=== PATIENT | male | born 1975 | race Caucasian/White ===

== ENCOUNTER 2023-02-06 11:17 | Outpatient (AMB) | payer OTHER, SELFPAY ==
[2023-02-06 11:21] VITALS: BP 124/80; PULSE 69; RESP 12; TEMP 36.6; O2SAT 99; BMI 28.0
--- NOTE | 2023-02-06 11:21 | MHC.PC.OV ---
Vital Signs 02/06/23 11:21 Height 6 ft Weight 206 lb 3 oz BMI 28.0 BP 124/80 Blood Pressure Location Lt brachial Position Sitting Respiration 12 Pulse 69 Pulse Source Pulse Oximeter Temp 97.8 F Temp Source Temporal Artery Scan Pulse Oximetry (%) 99 Oxygen Delivery Method Room Air Intake Visit Reasons: New patient-Heart Palpitations Intake Note: Patient states that he would like a referral to a generator operator. Patient states that he has a SVT when he was younger. Cell Coverer Required: No Accompanied by: Self / Same As Patient Allergies No Known Allergies Allergy (Verified 02/06/23 11:36) Medication List - Last Reconciled 02/06/23 by Ravindra Parker CNP No Known Home Meds Tobacco use date assessed: 02/06/23 Dental Screening Dental Screen Date: 02/06/23 Did you have a dental visit in the last 12 months?: No Did you have a dental problem in the last 6 months where you did not have access to dental care?: No Was dental information given to patient?: Patient has dentist HPI HPI Comments History of Present Illness Details 47-year-old male presents to [facility] care. He notes that he was last evaluated by his former PCP and had routine blood work done 5 years ago. He reports history of SVT when he was younger with ablation in 1993. He states that he started experiencing intermittent racing heart beats and palpitations for the past 8 months with occasional chest pain. No dizziness or shortness of breath. His last symptoms was a week ago. He requests a referral to generator operator. He is not on prescription medications. He notes that he is sexually active, in a monogamous relationship, and practices safe sex. [facility] Medical History (Updated 02/06/23 @ 11:52 by Ravindra Parker CNP) Bronchitis Palpitations Right knee injury Supraventricular tachycardia Surgical History (Updated 02/06/23 @ 11:38 by Zuly Harrington MA) H/O right knee surgery History of cardiac radiofrequency ablation Family History (Updated 02/06/23 @ 11:40 by Zuly Harrington MA) Mother High blood pressure Cardiovascular disease Father Cardiovascular disease Social History Housing: House Patient Tobacco Use Status: Never used Tobacco e-Cigarette/Vaping Use: Never Used service: No Current occupational status: employed 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 1. Little interest or pleasure in doing things: not at all 2. Feeling down, depressed, or hopeless: not at all 3. Trouble falling or staying asleep, or sleeping too much: not at all 4. Feeling tired or having little energy: not at all 5. Poor appetite or overeating: not at all 6. Feeling bad about yourself - or that you are a failure or have let yourself or your family down: not at all 7. Trouble concentrating on things, such as reading the newspaper or watching television: not at all 8. Moving or speaking so slowly that other people could have noticed. Or the opposite - being so fidgety or restless that you have been moving around a lot more than usual: not at all 9. Thoughts that you would be better off or of hurting yourself in some way: not at all Total score: 0 Depression Screening Interpretation: Negative Source: Developed by Drs. Jozef Jewell, Neida Rosen, Darrian Pérez and colleagues, with an educational kay from [employer]. Thrive Questionnaire Date Thrive assessed: 02/06/23 I am a: Patient Within the past 12 months, did the food you bought not last and you didn't have the money to get more?: Never true Within the past 12 months, did you worry whether your food would run out before you got money to buy more?: Never true Do you have trouble paying for medicines?: No Do you have trouble getting transportation to medical appointments?: No Do you have trouble paying your heating and electricity bill?: No Do you have trouble taking care of your child, family member or friend?: No Do you have trouble with day-to-day activities such as bathing, preparing meals, shopping, managing finances, etc.?: No Are you currently unemployed and looking for a job?: No Are you interested in more education?: No Please select the resources that you would like help with: None Currently or been in a relationship where the following occur: no concerns reported AUDIT C Alcohol Use Questionnaire (AUDIT-C) 1. How often do you have a drink containing alcohol?: 2-3 times a week 2. How many drinks containing alcohol do you have on a typical day when you are drinking?: 1 or 2 3. How often do you have six or more drinks on one occasion?: Never Total Score: 3 JENNIFER-7 AMB Questionnaire JENNIFER-7 Date JENNIFER - 7 assessed: 02/06/23 Feeling nervous, anxious, or on edge: 0 = Not at all Not being able to stop or control worryin = Not at all Worrying too much about different things: 0 = Not at all Trouble relaxin = Not at all Being so restless that it is hard to sit still: 0 = Not at all Becoming easily annoyed or irritable: 0 = Not at all Feeling afraid as if something awful might happen: 0 = Not at all Total JENNIFER-7 score (0-4 normal; 5-9 mild; 10-14 moderate; 15-21 severe): 0 Source: Developed by Drs. Jozef Jewell, Neida Rosen, Darrian Pérez and colleagues, with an educational kay from [employer]. Review of Systems Const Details: Denies chills, Denies fatigue, Denies fever(s), Denies headache(s) and Denies weakness HEENT Denies change in vision, Denies dizziness, Denies headache(s), Denies hearing loss, Denies nasal congestion, Denies sinus pain, Denies sinus pressure and Denies sore throat Card Denies chest pain, Denies lightheadedness, Denies dyspnea and Denies other (palpitations) Resp Denies cough, Denies dyspnea and Denies wheezing GI Denies abdominal pain, Denies melena, Denies hematochezia, Denies change in bowel habits, Denies dyspepsia and Denies nausea Denies hematuria and Denies dysuria Musc Denies abnormal gait, Denies myalgias, Denies arthralgias, Denies numbness and Denies tingling Skin/Breast Denies rash, Denies unusual bruising and Denies wounds Neuro Denies abnormal gait, Denies dizziness, Denies headache(s), Denies memory loss, Denies numbness, Denies Sensory deficit (Neuro), Denies tingling and Denies weakness Psych Denies anxiety, Denies depression and Denies memory loss Endo Denies cold intolerance, Denies fatigue, Denies heat intolerance, Denies polydipsia and Denies polyuria Joo/Lymph Denies easy bleeding and Denies easy bruising Aller/Immun Denies wheezing Physical exam (Primary Care) Vital Signs: Last Vital Signs Temp 97.8 F 02/06/23 11:21 Pulse 69 02/06/23 11:21 Resp 12 02/06/23 11:21 BP 124/80 02/06/23 11:21 Pulse Ox 99 02/06/23 11:21 Oxygen Delivery Method Room Air 02/06/23 11:21 BMI result Body Mass Index 28.0 Depression Screening Interpretation: Negative Currently or been in a relationship where the following occur: no concerns reported Const Other: General: no acute distress, well developed, alert and awake Nutritional Appearance: well nourished Orientation/consciousness: patient oriented x3 HENMT Head: Yes normocephalic and Yes atraumatic Ears: hearing grossly normal bilaterally and TM's normal bilaterally General nose exam: Normal external nose present and Normal nares present Mouth: Normal oral and palatal mucosa present and moist mucous membranes Teeth and gingiva: dentition normal Throat: Yes oropharynx normal Eyes Pupils: Equal, round and reactive pupils present and Pupil accommodation reflex normal EOM: EOMs intact bilaterally Neck Neck: Yes normal visual inspection, Yes no lymphadenopathy and Yes trachea midline Thyroid: Thyroid normal Carotids: no bruits Lymphatic: no lymphadenopathy noted Chest Chest palpation & inspection: normal inspection of the chest Resp Effort & Inspection: normal respiratory effort Auscultation: clear to auscultation bilaterally Cardio Rate: regular rate Rhythm: regular rhythm Heart sounds: S1 normal heart sound present, S2 normal heart sound present, no gallops, no murmurs and no rubs Bruits: no abdominal aortic bruits and no carotid bruits GI Palpation (GI): No Abdominal aortic bruit present, Soft to palpation, nontender, No hepatosplenomegaly present and No Rebound tenderness present Auscultation: normal bowel sounds General: Yes no CVA tenderness Back/Spine/Pelvis Back: no CVA tenderness Cervical Spine: cervical ROM normal and No Cervical spine tenderness Thoracic/Lumbar Spine: thoraco-lumbar ROM normal, No pain with thoraco-lumbar ROM, No thoracic spinal tenderness and No lumbar spinal tenderness Skin General: warm and dry. Normal skin color. Normal skin turgor Lesions: no lesions Rashes: no rashes Trauma: no lacerations or abrasions Wounds: no wounds Nails: normal Neuro General: patient oriented x3, gait normal and CN's II-XI intact bilaterally Cranial nerves: Yes Equal, round and reactive pupils present Cognition (Neuro): normal cognition Gait exam (Neuro): Normal gait present Motor exam (neuro): 5/5 motor strength present throughout Sensory Exam: No Sensory deficit (Neuro) Deep tendon reflexes (DTR's): Right patellar reflex intensity grade: 2+ and Left patellar reflex intensity grade: 2+ Extrem General: Yes normal to inspection, No edema and No calf tenderness Psych Appearance: grossly normal Affect: normal affect Attitude: cooperative Thought process: Normal thought process present Assessment and Plan Assessment & Plan (1) Normal physical examination, routine: Code(s): Z00.00 - Encounter for general adult medical examination without abnormal findings Plan: No significant physical restrictions or limitations noted Encouraged to get fasting blood work done before next visit Follow-up in 1 month for labs review or return sooner with symptoms or concerns Verbalized understanding and agreed with the plan. (2) Supraventricular tachycardia: Code(s): I47.1 - Supraventricular tachycardia Plan: Reports history of SVT and palpitations. He had an ablation in 1993. His last symptoms of palpitation was a week ago. Referred to Cardiology Return with symptoms or concerns Verbalized understanding and agreed with treatment plan. (3) Laboratory tests ordered as part of a complete physical exam (CPE): Code(s): Z00.00 - Encounter for general adult medical examination without abnormal findings Plan: Fasting labs ordered as part of a complete physical exam. Advised to fast for at least 10 hours before getting labs drawn. May drink water Verbalized understanding and agreed with treatment plan. Orders: Orders Comprehensive Callender. Panel Fast Today Z00.00 - Encounter for general adult medical examination without abnormal findings Lipid Panel Today Z00.00 - Encounter for general adult medical examination without abnormal findings PSA, Ultra Sensitive Today Z00.00 - Encounter for general adult medical examination without abnormal findings TSH reflex Free T4 Today Z00.00 - Encounter for general adult medical examination without abnormal findings Complete Blood Count Auto Diff Today Z00.00 - Encounter for general adult medical examination without abnormal findings UA CC w/rflx Micro + Cult Today Z00.00 - Encounter for general adult medical examination without abnormal findings Referrals Cardiology Referral I47.1 - Supraventricular tachycardia Coding Level of Care Code New Pt Prev Care 40-64y([id number]) Diagnoses Normal physical examination, routine Z00.00 Supraventricular tachycardia I47.1 Laboratory tests ordered as part of a complete physical exam (CPE) Z00.00
== END 2023-02-06 11:54 | disposition home or self-care (01) ==
PROVIDERS: PCP Nurse Practitioner Family; Visit Provider Nurse Practitioner Family
DX: Z00.00 Encounter for general adult medical examination without abnormal findings (principal); I47.1 Supraventricular tachycardia
CPT/HCPCS: 99386

== ENCOUNTER 2023-02-13 08:08 | Outpatient (REF) | payer OTHER, SELFPAY ==
[2023-02-13 11:36] LABS: MANUAL DIFF FLAG NO
[2023-02-13 12:00] LABS: Basophils Percent Auto 0.8 % (0-2); Eosinophils Absolute Auto 0.2 X10*3/uL (0.0-0.4); Eosinophils Percent Auto 4.3 % (0-4); Hematocrit 44.7 % (42.0-52.0); Hemoglobin 15.2 g/dl (14.0-18.0); Imm Gran Abs Auto 0.03 X10*3/uL (0.00-0.03); Imm Gran Pct Auto 0.6 % (0.0-0.4); Lymphocytes Absolute Auto 1.9 X10*3/uL (1.2-4.9); Lymphocytes Percent Auto 39.1 % (20-40); Mean Corpuscular Hemoglobin 29.7 pg (27.0-33.0); Mean Corpuscular Volume 87.3 fL (80.0-98.0); Mean Platelet Volume 10.6 fL (9.4-12.4); Monocytes Absolute Auto 0.3 X10*3/uL (0.1-1.2); Monocytes Percent Auto 6.3 % (2-11); Neutrophils Absolute Auto 2.4 x10*3/uL (2.0-8.3); Neutrophils Percent Auto 48.9 % (45-73); Platelet Count 264 X10*3/uL (160-400); Red Blood Count 5.12 X10*6/uL (4.60-5.80); White Blood Count 4.9 X10*3/uL (4.8-10.8)
[2023-02-13 12:25] LABS: Alanine Aminotransferase 29 U/L (0-40); Albumin Level 4.3 g/dL (3.5-5.0); Alkaline Phosphatase 49 U/L (39-117); Anion Gap 15 (12-20); Aspartate Amino Transferase 24 U/L (5-37); Bilirubin Total 0.6 mg/dL (0.0-1.0); Blood Urea Nitrogen 16 mg/dL (9-16); Calcium 8.9 mg/dL (8.4-10.2); Carbon Dioxide 22 mmol/L (22-29); Chloride 107 mmol/L (96-108); Cholesterol 296 mg/dL; Estimated Glomerular Filt Rate > 60; Glucose Fasting 91 mg/dL (60-99); HDL Cholesterol 51 mg/dL; LDL Cholesterol Calculated 222 mg/dl; Potassium 4.4 mmol/L (3.3-5.1); Sodium 140 mmol/L (135-145); Triglycerides 118 mg/dL
[2023-02-13 12:59] LABS: TSH reflex Free T4 1.12 uIU/mL (0.32-4.0)
[2023-02-13 14:45] LABS: Appearance Urine Cloudy; Color Urine Yellow; Glucose Urine UA Negative (Negative); Leukocyte Esterase Urine Negative (Negative); Nitrite Urine Negative (Negative); Specific Gravity - Urine >= 1.030 (1.005-1.025); Urine Blood Negative (Negative); Urine Ketones Negative (Negative); Urine Protein Trace mg/dL (Neg-Trace)
[2023-02-20 20:49] LABS: PSA, Ultra Sensitive 0.99 ng/mL
== END 2023-02-13 08:09 | disposition home or self-care (01) ==
LOC: HO.WFDLDS 08:08
PROVIDERS: Visit Provider Nurse Practitioner Family
DX: Z00.00 Encounter for general adult medical examination without abnormal findings (principal); Z12.5 Encounter for screening for malignant neoplasm of prostate
CPT/HCPCS: 36415; 80053; 80061; 81003; 84153; 84443; 85025

== ENCOUNTER 2023-03-13 08:58 | Outpatient (AMB) | payer OTHER, SELFPAY ==
--- NOTE | 2023-03-13 09:01 | A.OFFPC_ITS ---
Vital Signs 03/13/23 09:02 Height 6 ft Weight 213 lb 6 oz BMI 28.9 BP 112/74 Blood Pressure Location Rt brachial Position Sitting Respiration 13 Pulse 79 Pulse Source Pulse Oximeter Temp 97.0 F Temp Source Temporal Artery Scan Pulse Oximetry (%) 97 Oxygen Delivery Method Room Air Intake Visit Reasons: 1 mos labs review Intake Note: Patient is here today to review labs. Patient reports he has no concerns at this time. Carpenter Ship Required: No Accompanied by: Self / Same As Patient Allergies No Known Allergies Allergy (Verified 03/13/23 09:18) Medication List - Last Reconciled 03/13/23 by Ravindra Parker CNP No Known Home Meds Tobacco use date assessed: 02/06/23 Dental Screening Dental Screen Date: 03/13/23 Did you have a dental visit in the last 12 months?: No Did you have a dental problem in the last 6 months where you did not have access to dental care?: No Was dental information given to patient?: Patient has dentist HPI HPI Comments History of Present Illness Details 48-year-old male presents for review of recent blood work. He established care on 02/06/2023 and routine labs were ordered. He was referred to Cardiology for child history of SVT and complain of palpitations. He reports continued intermittent palpitations. His last episode was last night, lasted 30 minutes. No associated chest pain or shortness of breath. He notes he has an appointment scheduled with Cardiology for 03/27/2023. No acute symptoms today. 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 Jozef Jewell, Neida Rosen, Darrian Pérez and colleagues, with an educational kay from [employer]. Review of Systems Const Details: Const Denies chills, Denies fatigue, Denies fever(s), Denies headache(s) and Denies weakness ENT Denies dizziness and Denies headache(s) Card Denies chest pain, Denies lightheadedness, Denies dyspnea and Denies other (Palpitations) Resp Denies cough, Denies dyspnea, Denies wheezing and Denies other ( shortness of breath) GI Denies abdominal pain, Denies melena, Denies hematochezia, Denies change in bowel habits, Denies dyspepsia and Denies nausea Denies hematuria and Denies dysuria Musc Denies abnormal gait, Denies myalgias, Denies arthralgias, Denies numbness and Denies tingling Skin/Breast Denies rash, Denies unusual bruising and Denies wounds Neuro Denies abnormal gait, Denies dizziness, Denies headache(s), Denies memory loss, Denies numbness, Denies Sensory deficit (Neuro), Denies tingling and Denies weakness Psych Denies anxiety, Denies depression, Denies memory loss Endo Denies cold intolerance, Denies fatigue, Denies heat intolerance, Denies polydipsia and Denies polyuria Aller/Immun Denies wheezing Physical exam (Primary Care) Vital Signs: Last Vital Signs Temp 97.0 F 03/13/23 09:02 Pulse 79 03/13/23 09:02 Resp 13 03/13/23 09:02 BP 112/74 03/13/23 09:02 Pulse Ox 97 03/13/23 09:02 Oxygen Delivery Method Room Air 03/13/23 09:02 BMI result Body Mass Index 28.9 Tobacco/Smoking Status: Tobacco use Status Tobacco use date assessed 02/06/23 03/13/23 09:07 Patient Tobacco Use Status Never used Tobacco 03/13/23 09:07 e-Cigarette/Vaping Use Never Used 03/13/23 09:07 Thrive Assessment: Date of Thrive Assessment Date Thrive assessed 02/06/23 03/13/23 09:07 Const Other: General: no acute distress and well developed Nutritional Appearance: well nourished Orientation/consciousness: patient oriented x3 HENMT Head: Yes normocephalic and Yes atraumatic Eyes General: appearance normal, both eyes and all related structures Pupils: Equal, round and reactive pupils present EOM: EOMs intact bilaterally Resp Effort & Inspection: normal respiratory effort Auscultation: clear to auscultation bilaterally Cardio Rate: regular rate Rhythm: regular rhythm Heart sounds: S1 normal heart sound present, S2 normal heart sound present, no gallops, no murmurs and no rubs GI Palpation (GI): No Abdominal aortic bruit present, Soft to palpation, nontender, No hepatosplenomegaly present and No Rebound tenderness present Auscultation: normal bowel sounds General: Yes no CVA tenderness Back/Spine/Pelvis Back: no CVA tenderness Cervical Spine: cervical ROM normal and No Cervical spine tenderness Thoracic/Lumbar Spine: thoraco-lumbar ROM normal, No pain with thoraco-lumbar ROM, No thoracic spinal tenderness and No lumbar spinal tenderness Extrem General: Yes normal to inspection, No edema and No calf tenderness Skin General: warm and dry. Normal skin color. Normal skin turgor Lesions: no lesions Rashes: no rashes Trauma: no lacerations or abrasions Wounds: no wounds Nails: normal Neuro General: patient oriented x3, gait normal and no focal neuro deficit Cranial nerves: Yes Equal, round and reactive pupils present Cognition (Neuro): normal cognition Gait exam (Neuro): Normal gait present Sensory Exam: No Sensory deficit (Neuro) Psych Appearance: grossly normal Affect: normal affect Attitude: cooperative Thought process: Normal thought process present Assessment and Plan Assessment & Plan (1) Hypercholesterolemia: Code(s): E78.00 - Pure hypercholesterolemia, unspecified Plan: Recent cholesterol and LDL levels were elevated; 296/222 respectively His 10 year risk of ASCVD is 4% Advised to limit foods high in saturated fat and avoid foods high trans fat Routine exercise encouraged Advised to schedule a physical for a year from his last physical Return sooner with symptoms or concerns Verbalized understanding and agreed with treatment plan. (2) Palpitations: Code(s): R00.2 - Palpitations Plan: Reports history of SVT and palpitations.? He had an ablation in 1993. Reports continued intermittent palpations. His last episode was last night, lasted 30 minutes. No associated chest pain or shortness of breath. EKG revealed normal sinus rhythm, normal axis, normal interval, no hypertrophy, no Q-wave, no ST-T changes Follow-up with cardiology as planned Return with worsening or new symptoms Verbalized understanding and agreed with treatment plan. Coding Level of Care Code Est Pt Level 3 (82339) Diagnoses Hypercholesterolemia E78.00 Palpitations R00.2
[2023-03-13 09:02] VITALS: BP 112/74; PULSE 79; RESP 13; TEMP 36.1; O2SAT 97; BMI 28.9
== END 2023-03-13 09:56 | disposition home or self-care (01) ==
PROVIDERS: PCP Nurse Practitioner Family; Visit Provider Nurse Practitioner Family
DX: E78.00 Pure hypercholesterolemia, unspecified (principal); R00.2 Palpitations
CPT/HCPCS: 99213

== ENCOUNTER 2023-03-27 14:06 | Outpatient (AMB) | payer OTHER, SELFPAY ==
[2023-03-27 14:10] VITALS: BP 112/78; PULSE 86; BMI 27.9
--- NOTE | 2023-03-27 14:10 | A.OFFVIS_ITS ---
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 He states that he underwent SVT ablation 1993. At that time, he was having palpitations for few years. Eventually had the ablation and then felt fine. No cardiology follow-up for many years since then. For the last few months, he has again noticing sensations of heart racing. Last for a few minutes at a time. Nothing persistent. Otherwise, limited physical activity with no limitations whatsoever. No history of any coronary artery disease, myocardial infarction or cardiomyopathy. [facility] Medical History (Updated 03/27/23 @ 14:20 by Rafa Miller MD) Right knee injury Palpitations Bronchitis Supraventricular tachycardia Surgical History History of cardiac radiofrequency ablation H/O right knee surgery Family History Mother High blood pressure Cardiovascular disease Father Cardiovascular disease Social History (Updated 03/27/23 @ 14:15 by Lucia Goldberg) Housing: House Alcohol intake: current Alcohol intake frequency: holidays/special occasions only Patient Tobacco Use Status: Never used Tobacco e-Cigarette/Vaping Use: Never Used service: No Current occupational status: employed 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 [employer] Cognitive needs: No Hearing needs: No Vision needs: No Review of Systems Const Denies weakness ENT Denies dizziness Card Denies chest pain, Denies chest pain with activity, Denies syncope, Denies rapid heart rate, Denies pedal edema, Denies edema, Denies leg edema, Denies lightheadedness, Denies palpitations, Denies dyspnea, Denies dyspnea on exertion and Denies orthopnea Resp Denies cough, Denies dyspnea and Denies dyspnea on exertion GI Denies hematochezia and Denies change in stool character Musc Denies abnormal gait, Denies muscle cramps, Denies muscle weakness, Denies numbness, Denies radiating pain into limb and Denies tingling Neuro Denies abnormal gait, Denies dizziness, Denies syncope, Denies numbness, Denies tingling and Denies weakness Endo Denies palpitations Physical Exam Vital Signs: Last Vital Signs Pulse 86 03/27/23 14:10 BP 112/78 03/27/23 14:10 BMI result Body Mass Index 27.9 Const General: comfortable and no acute distress Orientation/consciousness: patient oriented x3 HEENT Other: Unremarkable Head: Yes normal to inspection Neck Neck: Yes normal visual inspection Chest Chest palpation & inspection: normal inspection of the chest Resp Auscultation: clear to auscultation bilaterally Cardio Palpation: normal PMI Heart sounds: S1 normal heart sound present, S2 normal heart sound present, no gallops, no murmurs and no rubs GI Palpation (GI): Soft to palpation Back/Spine/Pelvis Other: unremarkable Skin General skin exam: no rashes or lesions noted Neuro General: patient oriented x3 Extrem General: Yes normal to inspection Psych Mental Status: mental status grossly normal Assessment & Plan Assessment & Plan (1) Palpitations: Code(s): R00.2 - Palpitations (2) Supraventricular tachycardia: Code(s): I47.1 - Supraventricular tachycardia Plan Recent EKG shows sinus rhythm at 66/Min; no significant ST-T changes and otherwise unremarkable. Normal ME and corrected QT. History of remote SVT ablation and new onset of palpitations. Will need further workup with echocardiogram. As the palpitations are somewhat intermittent, we can rather do a 30 day monitor. Based on findings, we can plan further care. Orders: Orders CA echo transthoracic complete Today I47.1 - Supraventricular tachycardia ECG 30 day event monitor Today I47.1 - Supraventricular tachycardia Coding Level of Care Code New Pt Level 3 (80069) Diagnoses Palpitations R00.2 Supraventricular tachycardia I47.1
== END 2023-03-27 14:27 | disposition home or self-care (01) ==
PROVIDERS: PCP Nurse Practitioner Family; Referring Provider Nurse Practitioner Family; Visit Provider Internal Medicine
DX: R00.2 Palpitations (principal); I47.1 Supraventricular tachycardia
CPT/HCPCS: 99203

== ENCOUNTER → 2023-03-27 14:06 | Outpatient (BNVA) | payer OTHER, SELFPAY | PROVIDERS: PCP Nurse Practitioner Family; Referring Provider Nurse Practitioner Family; Visit Provider Internal Medicine | DX: R00.2 Palpitations (principal); I47.1 Supraventricular tachycardia; Z98.890 Other specified postprocedural states | CPT/HCPCS: 99202 ==

== ENCOUNTER → 2023-04-30 12:59 | Outpatient (REF) | payer OTHER, SELFPAY ==
--- NOTE | 2023-04-30 13:02 | HM_ITS ---
* Procedure length 30 days. Wear time 22 days. * Underlying rhythm is sinus with an average rate of 77/Min. Range 49 to 170/Min. * Rare ventricular ectopy. * Patient activated the symptom button 50 times. Reported 6 symptoms. Various symptoms including chest pain, dizziness, fast heartbeat, generally associated with sinus rhythm with 1 episode of sinus tachycardia. MTDD
--- NOTE | 2023-04-30 13:02 | CA_ITS ---
Transthoracic Echocardiogram Patient (Last, First, Middle): Gui Kent, Gender: Male Date of : 1975 Age: 48 Procedure Date: 04/30/2023 Procedure Type: Transthoracic Echocardiogram Location: OP Height: 182.88 cm Weight: 92.99 kg BSA: 2.15 m2 Heart Rate: bpm BP: 120 / 82 mmHg Slide Fastener Chain Assembler: TO Referring MD: Rafa Miller MD Symptoms: I47.1 - Supraventricular tachycardia Study Quality: Fair ECG Rhythm: Sinus Conclusions: - The left ventricular systolic function is normal. The calculated ejection fraction is 56% by biplane method. - There is mild calcification of the aortic valve. - No obvious valvular pathology seen on this study. Findings Left Ventricle Normal left ventricular cavity size. There is normal left ventricular wall thickness. The left ventricular systolic function is normal. The calculated ejection fraction is 56% by biplane method. There is no evidence of regional wall motion abnormalities. Diastolic function is normal for age. Right Ventricle Mildly increased right ventricular cavity size. There is normal right ventricular systolic function. Atria The left atrium is normal in size. The right atrium is mildly dilated. Aortic Valve There is a normal trileaflet aortic valve. There is mild calcification of the aortic valve. There is no aortic valve stenosis. There is no aortic valve regurgitation. Mitral Valve The mitral valve appears normal. There is no mitral valve regurgitation. There is no mitral valve stenosis. Pulmonic Valve The pulmonic valve is likely normal. Tricuspid Valve There is trace tricuspid valve regurgitation. There is no evidence of pulmonary hypertension. Great Vessels The asc aorta is normal in size. Venous The inferior vena cava is normal in size and collapses greater than 50% with inspiration. Pericardium/Pleural There is no evidence of pericardial effusion. Prior Study Comparison No prior study available for comparison. Recommendations, Care & Conclusions No obvious valvular pathology seen on this study. Measurements 2D Linear Measurements IVSd: 1.00 0.6-0.9/0.6-1.0 cm LVIDd: 4.90 3.9-5.3/4.2-5.9 cm LVIDd Index: 2.28 2.4-3.2/2.2-3.1 cm/m2 LVIDs: 2.60 2.0-3.6 cm LVPWd: 1.00 0.7-1.1 cm LA Diam: 3.70 2.7-3.8/3.0-4.0 cm LAIDs Index: 1.72 1.5-2.3 cm/m2 LV Mass: 219.29 67-162/88-224 g LV Mass Index: 102.00 43-95/49-115 g/m2 LVOT Diam: 2.40 3.0+(-)1.3 cm 2D Systolic Function EF 4C: 57.50 >55% EF 2C: 52.90 >55% EF BiP: 55.80 >55% Mitral Valve MV Pk E: 0.48 MV PK A: 0.48 MV Decel Time: 274.00 E/A: 1.00 E'Lateral: 8.70 E'Medial: 5.87 E/E' Med: 8.20 E/E' Lat: 5.50 PHT: 80.00 MVA PHT: 2.75 Decel [place]: 1.75 Aortic Valve AoV Pk Zachariah: 1.08 AoV Mn Zachariah: 0.74 AoV VTI: 0.22 AoV Pk Grad: 5.00 Aov Mn Grad: 3.00 JOSH Cont.VTI: 2.93 LVOT LVOT Pk Zachariah: 0.84 LVOT Mn Zachariah: 0.53 LVOT VTI: 0.14 LVOT Pk Grad: 3.00 LVOT Mn Grad: 1.00 LVOT Diam: 2.40 LVOT Area: 4.52 Diastolic Function MV Pk E: 0.48 MV Pk A: 0.48 E/A: 1.00 E'Medial: 5.87 E/E' Med: 8.20 E' Laterial: 8.70 E/E' Lat: 5.50 Right Ventricle TAPSE (mm): 23.80 TVS' Zachariah: 11.20 Tricuspid Valve TR Pk Zachariah: 2.01 TR Pk Grad: 16.00 RA Press: 3.00 RVSP: 19.00 Great Vessels Aorta Sinus of Valsalva: 4.20 2.0-3.5 cm Ao Asc: 3.30 2.1-3.4 cm Updated in Other Vendor System with Status of Final Rafa Miller MD electronically signed on 05/01/2023 2:48:19 PM with status of Final
== END ==
LOC: HO.CARD 12:59
PROVIDERS: PCP Nurse Practitioner Family; Visit Provider Internal Medicine
DX: I47.10 Supraventricular tachycardia, unspecified (principal)
CPT/HCPCS: 93270; 93306

== ENCOUNTER → 2023-04-30 13:02 | Outpatient (BNV) | payer OTHER, SELFPAY | PROVIDERS: PCP Nurse Practitioner Family; Visit Provider Internal Medicine | DX: R00.0 Tachycardia, unspecified (principal) | CPT/HCPCS: 93272; 93306 ==

== ENCOUNTER 2023-06-09 14:35 | Outpatient (AMB) | payer OTHER, SELFPAY ==
[2023-06-09 14:41] VITALS: BP 106/84; PULSE 88; BMI 28.7
--- NOTE | 2023-06-09 14:41 | A.OFFVIS_ITS ---
Intake Vital Signs 06/09/23 14:41 Height 6 ft Weight 211 lb 10.3 oz BMI 28.7 BP 106/84 Blood Pressure Location Lt brachial Position Sitting Pulse 88 Intake Visit Reasons: Follow up Echo & Monitor Intake Note: follow up Machine Assembler Required: No Accompanied by: Self / Same As Patient Allergies No Known Allergies Allergy (Verified 06/09/23 14:43) Medication List - Last Reconciled 06/09/23 by Rafa Miller MD No Known Home Meds HPI HPI Comments History of Present Illness Details Gui returns for follow-up. Recently seen in consultation regarding palpitations. He states that he underwent SVT ablation in 1993. At that time, he was having palpitations for few years. Eventually had the ablation and then felt fine. No cardiology follow-up for many years since then. For the last few months, he has again noticing sensations of heart racing. Last for a few minutes at a time. On 1 occasion, when he was driving he got very dizzy and that was very bothersome. Otherwise, unlimited physical activity with no limitations whatsoever. No history of any coronary artery disease, myocardial infarction or cardiomyopathy. He has completed an echocardiogram and 30 day monitor. 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 Cognitive needs: No Hearing needs: No Vision needs: No Review of Systems Const Denies weakness ENT Denies dizziness Card Denies chest pain, Denies chest pain with activity, Denies syncope, Denies rapid heart rate, Denies pedal edema, Denies edema, Denies leg edema, Denies lightheadedness, Denies palpitations, Denies dyspnea, Denies dyspnea on exertion and Denies orthopnea Resp Denies cough, Denies dyspnea and Denies dyspnea on exertion GI Denies hematochezia and Denies change in stool character Musc Denies abnormal gait, Denies muscle cramps, Denies muscle weakness, Denies numbness, Denies radiating pain into limb and Denies tingling Neuro Denies abnormal gait, Denies dizziness, Denies syncope, Denies numbness, Denies tingling and Denies weakness Endo Denies palpitations Physical Exam Vital Signs: Last Vital Signs Pulse 88 06/09/23 14:41 BP 106/84 06/09/23 14:41 BMI result Body Mass Index 28.7 Const General: comfortable and no acute distress Orientation/consciousness: patient oriented x3 HEENT Other: Unremarkable Head: Yes normal to inspection Neck Neck: Yes normal visual inspection Chest Chest palpation & inspection: normal inspection of the chest Resp Auscultation: clear to auscultation bilaterally Cardio Palpation: normal PMI Heart sounds: S1 normal heart sound present, S2 normal heart sound present, no gallops, no murmurs and no rubs GI Palpation (GI): Soft to palpation Back/Spine/Pelvis Other: unremarkable Skin General skin exam: no rashes or lesions noted Neuro General: patient oriented x3 Extrem General: Yes normal to inspection Psych Mental Status: mental status grossly normal Assessment & Plan Assessment & Plan (1) Palpitations: Code(s): R00.2 - Palpitations (2) Supraventricular tachycardia: Code(s): I47.1 - Supraventricular tachycardia Plan History of remote SVT ablation and new onset of palpitations. EKG shows sinus rhythm at 66/Min; no significant ST-T changes and otherwise unremarkable. Normal AK and corrected QT. Echocardiogram with LVEF of 56%. No wall motion abnormalities. Normal diastolic function. Otherwise unremarkable. In the 30 day monitor, underlying rhythm is sinus. Rare ventricular ectopy. Overall, no evidence of any significant tachyarrhythmias. We discussed the findings in great detail. Overall, he seems to be quite bothered by the occurrence of palpitations and he feels that the 30 day monitor did not catch them as he had symptoms before and after the monitor, but not during. Hence we talked about monitoring his own self with any smart device like a smart watch versus implantable loop recorder. Patient very interested in getting the implantable loop recorder and hence we can arrange that in the near future. Based on findings, we can plan further care. Total time spent including review of data, counseling, documentation, coordination of care-32 minutes. Coding Level of Care Code Est Pt Level 4 (40360) Diagnoses Palpitations R00.2 Supraventricular tachycardia I47.1
== END 2023-06-09 15:07 | disposition home or self-care (01) ==
PROVIDERS: PCP Nurse Practitioner Family; Visit Provider Internal Medicine
DX: R00.2 Palpitations (principal); I47.1 Supraventricular tachycardia
CPT/HCPCS: 99214

== ENCOUNTER → 2023-06-09 14:35 | Outpatient (BNVA) | payer OTHER, SELFPAY | PROVIDERS: PCP Nurse Practitioner Family; Visit Provider Internal Medicine | DX: I47.10 Supraventricular tachycardia, unspecified (principal); R00.2 Palpitations | CPT/HCPCS: 99212 ==

== ENCOUNTER 2023-06-20 11:02 | Outpatient (REF) | payer OTHER, SELFPAY ==
[2023-06-20 11:07] VITALS: BMI 27.8
[2023-06-20 11:09] VITALS: BP 138/77; PULSE 76; RESP 16; TEMP 36.4; O2SAT 97
[2023-06-20 11:35] VITALS: BP 127/76; PULSE 77; RESP 16; O2SAT 94
--- NOTE | 2023-06-20 11:47 | P.BOP_ITS ---
Brief Operative Note Date of Service: 06/20/23 Pre-op diagnosis: Palpitations Post-op diagnosis: same Procedure: Placement of implantable loop recorder Implants: After obtaining informed consent patient was laid in the supine position on the table in minor surgery room. The precordial area was then prepped and draped in a sterile fashion. Patient was then given 2% lidocaine with epinephrine intradermally and subcutaneously in the precordial area. Small incision was then made. The car easily beat implantable loop recorder with seizures number [id number] was then implanted in the subcutaneous space using modified Seldinger technique. The wound was then closed with Steri-Strips and pressure dressing applied. Surgeon: Grabiel Camacho MD Anesthesia: local Was an Flow Machine Operator used for this Procedure?: No Estimated blood loss (mL): 2 Pathology: none sent Condition: stable Disposition: same day
== END 2023-06-20 11:03 | disposition home or self-care (01) ==
LOC: HO.MS 11:02
PROVIDERS: PCP Nurse Practitioner Family; Visit Provider Internal Medicine Cardiovascular Disease
PROC: (CPT 33285; principal; 2023-06-20 11:00)
DX: R00.2 Palpitations (principal)
CPT/HCPCS: 33285; C1764

== ENCOUNTER → 2023-06-20 11:02 | Outpatient (BNV) | payer OTHER, SELFPAY | PROVIDERS: PCP Nurse Practitioner Family; Visit Provider Internal Medicine Cardiovascular Disease | DX: I47.10 Supraventricular tachycardia, unspecified (principal) | CPT/HCPCS: 33285 ==

== ENCOUNTER 2023-06-25 14:25 | Outpatient (AMB) | payer OTHER, SELFPAY ==
--- NOTE | 2023-06-25 14:29 | A.OFFVIS_ITS ---
Intake Vital Signs 06/25/23 14:30 Height 6 ft Weight 213 lb 13.574 oz BMI 29.0 BP 120/70 Blood Pressure Location Lt brachial Position Sitting Pulse 96 Intake Visit Reasons: wound check Intake Note: Follow-up post ILR wound check Livestock Judging Coach Required: No Allergies No Known Allergies Allergy (Verified 06/09/23 14:43) Medication List - Last Reconciled 06/25/23 by Lala Ceja NP No Known Home Meds HPI HPI Comments History of Present Illness Details 48-year-old male here today for a wound check. He reports doin well. No fever, chills, swelling, and mild tenderness at the site. 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 Cognitive needs: No Hearing needs: No Vision needs: No Review of Systems Const Denies chills, Denies fatigue, Denies fever(s), Denies frequent falls, Denies weakness, Denies weight gain and Denies weight loss ENT Denies dizziness Card Denies chest pain, Denies leg edema, Denies lightheadedness, Denies palpitations, Denies dyspnea, Denies dyspnea on exertion, Denies orthopnea and Denies other (loss of consciousness) Resp Denies cough, Denies dyspnea and Denies dyspnea on exertion GI Denies hematochezia and Denies change in stool character Musc Denies abnormal gait, Denies muscle weakness, Denies numbness, Denies radiating pain into limb and Denies tingling Neuro Denies abnormal gait, Denies dizziness, Denies frequent falls, Denies numbness, Denies tingling and Denies weakness Endo Denies fatigue and Denies palpitations Physical Exam Vital Signs: BMI result Body Mass Index 29.0 Const General: healthy appearing and no acute distress Orientation/consciousness: patient oriented x3 HEENT Head: Yes normal to inspection Eyes General: appearance normal, both eyes and all related structures Neck Neck: Yes normal visual inspection Chest Chest palpation & inspection: normal inspection of the chest Resp Effort & Inspection: normal respiratory effort Auscultation: clear to auscultation bilaterally Cardio Jugular venous distension: no JVD Palpation: normal PMI Rate: regular rate Rhythm: regular rhythm Heart sounds: S1 normal heart sound present, S2 normal heart sound present, no click, no gallops, no murmurs and no rubs GI Inspection: Yes normal to inspection Palpation (GI): Soft to palpation Skin Other: ILR placed to the left of sternum General skin exam: no rashes or lesions noted Neuro General: patient oriented x3 Extrem General: Yes normal to inspection Psych Appearance: grossly normal Assessment & Plan Assessment & Plan (1) Implantable loop recorder present: Code(s): Z95.818 - Presence of other cardiac implants and grafts Plan Site looks to be healing well. Too soon to remove steri-strips. Will have him return friday when it is the appropriate time. Coding Level of Care Code Est Pt Level 3 (69095) Diagnoses Implantable loop recorder present Z95.818
[2023-06-25 14:30] VITALS: BP 120/70; PULSE 96; BMI 29.0
== END 2023-06-25 15:04 | disposition home or self-care (01) ==
PROVIDERS: PCP Nurse Practitioner Family; Visit Provider Nurse Practitioner
DX: Z95.818 Presence of other cardiac implants and grafts (principal)
CPT/HCPCS: 99213

== ENCOUNTER → 2023-06-25 14:25 | Outpatient (BNVA) | payer OTHER, SELFPAY | PROVIDERS: PCP Nurse Practitioner Family; Visit Provider Nurse Practitioner | DX: Z95.818 Presence of other cardiac implants and grafts (principal) | CPT/HCPCS: 99212 ==

== ENCOUNTER → 2023-06-30 14:03 | Outpatient (BNVA) | payer OTHER, SELFPAY | PROVIDERS: PCP Nurse Practitioner Family; Visit Provider Nurse Practitioner | DX: Z48.00 Encounter for change or removal of nonsurgical wound dressing (principal) | CPT/HCPCS: 99211 ==

== ENCOUNTER → 2023-07-20 23:59 | Outpatient (BNV) | payer OTHER, SELFPAY ==
--- NOTE | 2023-07-22 15:52 | A.OFFVIS_ITS ---
Intake Intake Visit Reasons: Remote ILR Check- [employer] Allergies No Known Allergies Allergy (Verified 06/09/23 14:43) PFSH Medical History Right knee injury Palpitations Bronchitis Supraventricular tachycardia Surgical History History of cardiac radiofrequency ablation H/O right knee surgery Family History Mother High blood pressure Cardiovascular disease Father Cardiovascular disease Social History Housing: House Alcohol intake: current Alcohol intake frequency: holidays/special occasions only Patient Tobacco Use Status: Never used Tobacco e-Cigarette/Vaping Use: Never Used service: No Current occupational status: employed 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 Associated with some heart pounding, faint type symptoms. [id number] Cardiac Interrogation, subcut cardiac rhythm monitor Procedure code (CPT) selection complete Assessment & Plan Assessment & Plan (1) Supraventricular tachycardia: Code(s): I47.1 - Supraventricular tachycardia Plan x Coding Level of Care Code Procedure Only Diagnoses Supraventricular tachycardia I47.1 CPT Codes Cardiac Device Check - Cardiac Device 16: [id number] Cardiac Interrogation, subcut cardiac rhythm monitor ([id number])
== END ==
PROVIDERS: PCP Nurse Practitioner Family; Visit Provider Internal Medicine
DX: I47.10 Supraventricular tachycardia, unspecified (principal); Z95.818 Presence of other cardiac implants and grafts
CPT/HCPCS: 93298

== ENCOUNTER 2023-08-06 09:47 | Outpatient (AMB) | payer OTHER, SELFPAY ==
[2023-08-06 09:53] VITALS: BP 138/80; PULSE 56; BMI 29.3
--- NOTE | 2023-08-06 09:53 | A.OFFVIS_ITS ---
Intake Vital Signs 08/06/23 09:53 Height 6 ft Weight 216 lb 0.848 oz BMI 29.3 BP 138/80 Blood Pressure Location Lt brachial Position Sitting Pulse 56 Intake Visit Reasons: FU/discuss palpitations Allergies No Known Allergies Allergy (Verified 06/09/23 14:43) Medication List - Last Reconciled 08/06/23 by Rafa Miller MD No Known Home Meds HPI HPI Comments History of Present Illness Details Gui returns for follow-up. Recently seen in consultation regarding palpitations. He states that he underwent SVT ablation in 1993. At that time, he was having palpitations for few years. Eventually had the ablation and then felt fine. No cardiology follow-up for many years since then. For the last few months, he has again been noticing sensations of heart racing. Last for a few minutes at a time. On 1 occasion, when he was driving he got very dizzy and that was very bothersome. Otherwise, unlimited physical activity with no limitations whatsoever. No history of any coronary artery disease, myocardial infarction or cardiomyopathy. Recently, underwent implantable loop recorder placement. He continues to feel the palpitations. Hence he is concerned. 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 Cognitive needs: No Hearing needs: No Vision needs: No Review of Systems Const Denies chills, Denies fatigue, Denies fever(s), Denies frequent falls, Denies weakness, Denies weight gain and Denies weight loss ENT Denies dizziness Card Denies chest pain, Denies leg edema, Denies lightheadedness, Denies palpitations, Denies dyspnea, Denies dyspnea on exertion, Denies orthopnea and Denies other (loss of consciousness) Resp Denies cough, Denies dyspnea and Denies dyspnea on exertion GI Denies hematochezia and Denies change in stool character Musc Denies abnormal gait, Denies muscle weakness, Denies numbness, Denies radiating pain into limb and Denies tingling Neuro Denies abnormal gait, Denies dizziness, Denies frequent falls, Denies numbness, Denies tingling and Denies weakness Endo Denies fatigue and Denies palpitations Physical Exam Vital Signs: Last Vital Signs Pulse 56 08/06/23 09:53 BP 138/80 08/06/23 09:53 BMI result Body Mass Index 29.3 Const General: comfortable and no acute distress Orientation/consciousness: patient oriented x3 HEENT Other: Unremarkable Head: Yes normal to inspection Neck Neck: Yes normal visual inspection Chest Chest palpation & inspection: normal inspection of the chest Resp Auscultation: clear to auscultation bilaterally Cardio Palpation: normal PMI Heart sounds: S1 normal heart sound present, S2 normal heart sound present, no gallops, no murmurs and no rubs GI Palpation (GI): Soft to palpation Back/Spine/Pelvis Other: unremarkable Skin General skin exam: no rashes or lesions noted Neuro General: patient oriented x3 Extrem General: Yes normal to inspection Psych Mental Status: mental status grossly normal Assessment & Plan Assessment & Plan (1) Supraventricular tachycardia: Code(s): I47.1 - Supraventricular tachycardia (2) Implantable loop recorder present: Code(s): Z95.818 - Presence of other cardiac implants and grafts Plan Echocardiogram with LVEF of 56%. No wall motion abnormalities. Mild aortic valve calcification but otherwise unremarkable. In the 30 day monitor, underlying rhythm is sinus with an average rate of 77/Min. Rare ventricular ectopy but otherwise no significant findings. In the implantable loop recorder, so far there is 1 episode of narrow complex tachycardia which could indicate SVT. Certainly a few minutes in duration but he feels as though there are many more episodes. There is remote history of SVT ablation about 30 years ago. We discussed about options including a small dose of beta-whitney to try. H owever, he states he would prefer not to take any medications and rather get another ablation if necessary. Hence we will refer him to EP for further evaluation. Total time spent including review of data, counseling, documentation, coordination of care- 32 minutes. Orders: Referrals Cardiac Electrophysiology Referral I47.1 - Supraventricular tachycardia Coding Level of Care Code Est Pt Level 4 (13485) Diagnoses Supraventricular tachycardia I47.1 Implantable loop recorder present Z95.818
== END 2023-08-06 11:04 | disposition home or self-care (01) ==
PROVIDERS: PCP Nurse Practitioner Family; Visit Provider Nurse Practitioner
DX: I47.19 Other supraventricular tachycardia (principal); Z95.818 Presence of other cardiac implants and grafts
CPT/HCPCS: 99214

== ENCOUNTER → 2023-08-06 09:47 | Outpatient (BNVA) | payer OTHER, SELFPAY | PROVIDERS: PCP Nurse Practitioner Family; Visit Provider Internal Medicine Cardiovascular Disease | DX: I47.10 Supraventricular tachycardia, unspecified (principal); Z95.818 Presence of other cardiac implants and grafts | CPT/HCPCS: 99212 ==

== ENCOUNTER → 2023-08-19 23:59 | Outpatient (BNV) | payer OTHER, SELFPAY ==
--- NOTE | 2023-08-21 09:12 | A.OFFVIS_ITS ---
Intake Intake Visit Reasons: Remote ILR Check- [employer] Allergies No Known Allergies Allergy (Verified 06/09/23 14:43) PFSH Medical History Right knee injury Palpitations Bronchitis Supraventricular tachycardia Surgical History History of cardiac radiofrequency ablation H/O right knee surgery Family History Mother High blood pressure Cardiovascular disease Father Cardiovascular disease Social History Housing: House Alcohol intake: current Alcohol intake frequency: holidays/special occasions only Patient Tobacco Use Status: Never used Tobacco e-Cigarette/Vaping Use: Never Used service: No Current occupational status: employed 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 [id number] Cardiac Interrogation, subcut cardiac rhythm monitor Procedure code (CPT) selection complete Assessment & Plan Assessment & Plan (1) Supraventricular tachycardia: Code(s): I47.1 - Supraventricular tachycardia Plan x Coding Level of Care Code Procedure Only Diagnoses Supraventricular tachycardia I47.1 CPT Codes Cardiac Device Check - Cardiac Device 16: [id number] Cardiac Interrogation, subcut cardiac rhythm monitor ([id number])
== END ==
PROVIDERS: PCP Nurse Practitioner Family; Visit Provider Internal Medicine
DX: I47.10 Supraventricular tachycardia, unspecified (principal); Z95.818 Presence of other cardiac implants and grafts
CPT/HCPCS: 93298

== ENCOUNTER → 2023-09-18 23:59 | Outpatient (BNV) | payer OTHER, SELFPAY ==
--- NOTE | 2023-09-21 12:53 | MHC.OFFVIS ---
Intake Intake Visit Reasons: Remote ILR Check- [employer] Allergies No Known Allergies Allergy (Verified 06/09/23 14:43) PFSH Medical History Right knee injury Palpitations Bronchitis Supraventricular tachycardia Surgical History History of cardiac radiofrequency ablation H/O right knee surgery Family History Mother High blood pressure Cardiovascular disease Father Cardiovascular disease Social History Housing: House Alcohol intake: current Alcohol intake frequency: holidays/special occasions only Patient Tobacco Use Status: Never used Tobacco e-Cigarette/Vaping Use: Never Used service: No Current occupational status: employed 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 Second episode- ?sinus tachl need to exclude brief flutter. [id number] Cardiac Interrogation, subcut cardiac rhythm monitor Procedure code (CPT) selection complete Assessment & Plan Assessment & Plan (1) Supraventricular tachycardia: Code(s): I47.1 - Supraventricular tachycardia Plan x Coding Level of Care Code Procedure Only Diagnoses Supraventricular tachycardia I47.1 CPT Codes Cardiac Device Check - Cardiac Device 16: [id number] Cardiac Interrogation, subcut cardiac rhythm monitor ([id number])
== END ==
PROVIDERS: PCP Nurse Practitioner Family; Visit Provider Internal Medicine
DX: I47.10 Supraventricular tachycardia, unspecified (principal); Z95.818 Presence of other cardiac implants and grafts
CPT/HCPCS: 93298

== ENCOUNTER → 2023-10-18 23:59 | Outpatient (BNV) | payer OTHER, SELFPAY ==
--- NOTE | 2023-10-23 15:23 | MHC.OFFVIS ---
Intake Intake Visit Reasons: Remote ILR Check- [employer] Allergies No Known Allergies Allergy (Verified 06/09/23 14:43) PFSH Medical History Right knee injury Palpitations Bronchitis Supraventricular tachycardia Surgical History History of cardiac radiofrequency ablation H/O right knee surgery Family History Mother High blood pressure Cardiovascular disease Father Cardiovascular disease Social History Housing: House Alcohol intake: current Alcohol intake frequency: holidays/special occasions only Patient Tobacco Use Status: Never used Tobacco e-Cigarette/Vaping Use: Never Used service: No Current occupational status: employed 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 [id number] Cardiac Interrogation, subcut cardiac rhythm monitor Procedure code (CPT) selection complete Assessment & Plan Assessment & Plan (1) Supraventricular tachycardia: Code(s): I47.1 - Supraventricular tachycardia Plan x Coding Level of Care Code Procedure Only Diagnoses Supraventricular tachycardia I47.1 CPT Codes Cardiac Device Check - Cardiac Device 16: [id number] Cardiac Interrogation, subcut cardiac rhythm monitor ([id number])
== END ==
PROVIDERS: PCP Nurse Practitioner Family; Visit Provider Internal Medicine
DX: I47.10 Supraventricular tachycardia, unspecified (principal); Z95.818 Presence of other cardiac implants and grafts
CPT/HCPCS: 93298

== ENCOUNTER 2023-10-30 14:33 | Outpatient (AMB) | payer OTHER, SELFPAY ==
[2023-10-30 14:45] VITALS: BP 116/78; PULSE 78; BMI 29.0
--- NOTE | 2023-10-30 14:45 | MHC.OFFVIS ---
Intake Vital Signs 10/30/23 14:45 Height 6 ft Weight 214 lb BMI 29.0 BP 116/78 Blood Pressure Location Lt brachial Position Sitting Pulse 78 Intake Visit Reasons: 3 mth s/p delma Intake Note: 3 month follow up pt feels good Allergies No Known Allergies Allergy (Verified 06/09/23 14:43) Medication List - Last Reconciled 10/30/23 by Lala Ceja NP metoprolol succinate ER 25 mg PO DAILY HPI HPI Comments History of Present Illness Details 48-year-old male presents today for a follow-up on SVT after seeing Dr Rodríguez. He had a ablation for SVT back in 1993. He reports he has been doing good but is still getting episodes of SVT lasting seconds to minutes. During these episodes he gets tunnel vision,. dizziness, and then feels exhausted. He reports it is a random occurrence. He has started metoprolol in the last week. Has not noticed a difference yet. 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 Cognitive needs: No Hearing needs: No Vision needs: No Review of Systems Const Denies weakness ENT Denies dizziness Card Denies chest pain, Denies chest pain with activity, Denies syncope, Denies rapid heart rate, Denies pedal edema, Denies edema, Denies leg edema, Denies lightheadedness, Denies palpitations, Denies dyspnea, Denies dyspnea on exertion and Denies orthopnea Resp Denies cough, Denies dyspnea and Denies dyspnea on exertion GI Denies hematochezia and Denies change in stool character Musc Denies abnormal gait, Denies muscle cramps, Denies muscle weakness, Denies numbness, Denies radiating pain into limb and Denies tingling Neuro Denies abnormal gait, Denies dizziness, Denies syncope, Denies numbness, Denies tingling and Denies weakness Endo Denies palpitations Physical Exam Vital Signs: Last Vital Signs Pulse 78 10/30/23 14:45 BP 116/78 10/30/23 14:45 BMI result Body Mass Index 29.0 Const General: healthy appearing and no acute distress Orientation/consciousness: patient oriented x3 HEENT Head: Yes normal to inspection Eyes General: appearance normal, both eyes and all related structures Neck Neck: Yes normal visual inspection Chest Chest palpation & inspection: normal inspection of the chest Resp Effort & Inspection: normal respiratory effort Auscultation: clear to auscultation bilaterally Cardio Jugular venous distension: no JVD Palpation: normal PMI Rate: regular rate Rhythm: regular rhythm Heart sounds: S1 normal heart sound present, S2 normal heart sound present, no click, no gallops, no murmurs and no rubs GI Inspection: Yes normal to inspection Palpation (GI): Soft to palpation Skin General skin exam: no rashes or lesions noted Neuro General: patient oriented x3 Extrem General: Yes normal to inspection Psych Appearance: grossly normal Assessment & Plan Assessment & Plan (1) Supraventricular tachycardia: Code(s): I47.1 - Supraventricular tachycardia Plan On beta blockers. Continue and if does not improve within a few weeks to let us or Dr Rodríguez know. Plan for ablation January 27 2024. Avoidance of stimulants discussed. Vagal maneuvers reviewed. Will follow-up after abaltion or sooner if needed. Coding Level of Care Code Est Pt Level 3 (99487) Diagnoses Supraventricular tachycardia I47.1
== END 2023-10-30 15:12 | disposition home or self-care (01) ==
PROVIDERS: PCP Nurse Practitioner Family; Visit Provider Nurse Practitioner
DX: I47.10 Supraventricular tachycardia, unspecified (principal)
CPT/HCPCS: 99213

== ENCOUNTER → 2023-10-30 14:33 | Outpatient (BNVA) | payer OTHER, SELFPAY | PROVIDERS: PCP Nurse Practitioner Family; Visit Provider Nurse Practitioner | DX: I47.10 Supraventricular tachycardia, unspecified (principal); R00.2 Palpitations; Z98.890 Other specified postprocedural states; Z79.899 Other long term (current) drug therapy | CPT/HCPCS: 99212 ==

== ENCOUNTER → 2023-11-17 23:59 | Outpatient (BNV) | payer OTHER, SELFPAY ==
--- NOTE | 2023-11-26 13:23 | MHC.OFFVIS ---
Intake Visit Reasons: Remote ILR- [employer] Allergies No Known Allergies Allergy (Verified 11/25/23 14:09) [facility] History New onset atrial fibrillation Right knee injury Palpitations Bronchitis Supraventricular tachycardia Surgical History History of cardiac radiofrequency ablation H/O right knee surgery Family History Mother High blood pressure Cardiovascular disease Father Cardiovascular disease Social History Housing: House Alcohol intake: current Alcohol intake frequency: holidays/special occasions only Patient Tobacco Use Status: Never used Tobacco e-Cigarette/Vaping Use: Never Used service: No Current occupational status: employed 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 Associated with symptoms of dizziness, lightheadedness, shortness of breath, fainting. Another mention of heart pounding and heart fluttering on the 15 of November but that seems to be sinus rhythm. [id number] Cardiac Interrogation, subcut cardiac rhythm monitor Procedure code (CPT) selection complete Assessment & Plan Assessment & Plan (1) Implantable loop recorder present: Code(s): Z95.818 - Presence of other cardiac implants and grafts Category: Medical (2) New onset atrial fibrillation: Code(s): I48.91 - Unspecified atrial fibrillation Category: Medical Plan x Coding Level of Care Code Procedure Only Diagnoses Implantable loop recorder present Z95.818 New onset atrial fibrillation I48.91 CPT Codes Cardiac Device Check - Cardiac Device 16: [id number] Cardiac Interrogation, subcut cardiac rhythm monitor ([id number])
== END ==
PROVIDERS: PCP Nurse Practitioner Family; Visit Provider Internal Medicine
DX: I48.91 Unspecified atrial fibrillation (principal); Z95.818 Presence of other cardiac implants and grafts
CPT/HCPCS: 93298

== ENCOUNTER 2023-11-25 13:58 | Outpatient (AMB) | payer OTHER, SELFPAY ==
[2023-11-25 14:01] VITALS: BP 118/68; PULSE 76; O2SAT 98; BMI 27.8
--- NOTE | 2023-11-25 14:01 | A.OFFVIS_ITS ---
Vital Signs 11/25/23 14:01 Height 6 ft Weight 205 lb BMI 27.8 BP 118/68 Blood Pressure Location Lt brachial Position Sitting Pulse 76 Pulse Source Pulse Oximeter Pulse Oximetry (%) 98 Oxygen Delivery Method Room Air Intake Visit Reasons: [place]/5-6/Afib Allergies No Known Allergies Allergy (Verified 11/25/23 14:09) Medication List - Last Reconciled 11/25/23 by Lala Ceja NP apixaban (Eliquis) 5 mg PO BID metoprolol succinate ER 50 mg PO DAILY HPI Comments Details: 48-year-old male presents today for a follow-up after being in the Emergency Room for new onset AFib with RVR. He has a history of SVT and is due for an ablation on January [address] Rodríguez. During these episodes he gets tunnel vision, dizziness, and chest tightness . He reports this episode feels constant since Friday morning. On Friday he was working in the yard and then Friday was playing with his grandchildren. He was at work yesterday working at his desk and his heart rate went up to 160s. Then he went to the ED and his heart rate was as high as 180. His metoprolol was increased to 50mg and he was started on anticoagulation due to unknown how long this episode was. He drinks a few beers on the weekends and drinks about 20 oz of coffee a day. Reports poor sleep with snoring. 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 Cognitive needs: No Hearing needs: No Vision needs: No Review of Systems Const Denies weakness ENT Denies dizziness Card Denies chest pain, Denies chest pain with activity, Denies syncope, Denies rapid heart rate, Denies pedal edema, Denies edema, Denies leg edema, Denies lightheadedness, Denies palpitations, Denies dyspnea, Denies dyspnea on exertion and Denies orthopnea Resp Denies cough, Denies dyspnea and Denies dyspnea on exertion GI Denies hematochezia and Denies change in stool character Musc Denies abnormal gait, Denies muscle cramps, Denies muscle weakness, Denies numbness, Denies radiating pain into limb and Denies tingling Neuro Denies abnormal gait, Denies dizziness, Denies syncope, Denies numbness, Denies tingling and Denies weakness Endo Denies palpitations Physical Exam Vital Signs: Last Vital Signs Pulse 76 11/25/23 14:01 BP 118/68 11/25/23 14:01 Pulse Ox 98 11/25/23 14:01 Oxygen Delivery Method Room Air 11/25/23 14:01 BMI result Body Mass Index 27.8 Const General: healthy appearing and no acute distress Orientation/consciousness: patient oriented x3 HEENT Head: Yes normal to inspection Eyes General: appearance normal, both eyes and all related structures Neck Neck: Yes normal visual inspection Chest Chest palpation & inspection: normal inspection of the chest Resp Effort & Inspection: normal respiratory effort Auscultation: clear to auscultation bilaterally Cardio Jugular venous distension: no JVD Palpation: normal PMI Rate: regular rate Rhythm: abnormal rhythm Heart sounds: S1 normal heart sound present, S2 normal heart sound present, no c lick, no gallops, no murmurs and no rubs GI Inspection: Yes normal to inspection Palpation (GI): Soft to palpation Skin General skin exam: no rashes or lesions noted Neuro General: patient oriented x3 Extrem General: Yes normal to inspection Psych Appearance: grossly normal Office Procedures EKG Details: EKG today. Atrial Fibrillation with rapid ventricular response with premature ventricular or aberrantly conducted complexes. Rate 118 bpm. [id number], Complete Assessment & Plan Assessment & Plan (1) New onset atrial fibrillation: Code(s): I48.91 - Unspecified atrial fibrillation Category: Medical Plan On Eliquis 5mg BID and metoprolol 50 mg QD. Rate today 118 bpm but only first day of increased dose of metoprolol. Avoidance of stimulants and sleep hygiene discussed. He is due for SVT ablation on January 26. Will order sleep study for evaluation of snoring and hypersomnia. Continue to record heart rates and symptoms. Will arranged CHRIS cardioversion as discussed with Dr. Miller. Orders: Orders RT PSG in-lab sleep study 11/25/23 G47.10 - Hypersomnia, unspecified Cardioversion with CHRIS 11/25/23 I48.91 - Unspecified atrial fibrillation Coding Level of Care Code Est Pt Level 4 (99847) Diagnoses New onset atrial fibrillation I48.91 CPT Codes EKG - CPT: 71929-[id number], Complete ([id number])
== END 2023-11-25 14:43 | disposition home or self-care (01) ==
PROVIDERS: PCP Nurse Practitioner Family; Visit Provider Nurse Practitioner
DX: I48.91 Unspecified atrial fibrillation (principal)
CPT/HCPCS: 93010; 99214

== ENCOUNTER → 2023-11-25 13:58 | Outpatient (BNVA) | payer OTHER, SELFPAY | PROVIDERS: PCP Nurse Practitioner Family; Visit Provider Nurse Practitioner | DX: I48.91 Unspecified atrial fibrillation (principal); Z79.01 Long term (current) use of anticoagulants; Z79.899 Other long term (current) drug therapy | CPT/HCPCS: 93005; 99212 ==

== ENCOUNTER 2023-11-26 16:08 | Inpatient (IN) | payer OTHER, SELFPAY ==
--- NOTE | ~2023-11-26 | XR_ITS ---
EXAMINATION: XR CHEST CLINICAL INFORMATION: Low suspicion for pulmonary emboli COMPARISON: None available. TECHNIQUE: Frontal portable AP view of the chest was obtained. FINDINGS: No significant abnormality is noted involving the heart, lungs, mediastinum, bony thorax or soft tissues. A loop recorder overlies the left chest. XR/XR chest 1V IMPRESSION: Unremarkable examination.
[2023-11-26 16:13] VITALS: BP 130/79; PULSE 99; RESP 18; TEMP 36.1; O2SAT 98; BMI 27.8
--- NOTE | 2023-11-26 16:14 | ED.GENADULT ---
HPI - General Adult General Chief complaint: Arrhythmia/Palpitations Stated complaint: possible afib? sent by PCP Time Seen by Provider: 11/26/23 16:59 Source: patient Mode of arrival: ambulatory Limitations: no limitations History of Present Illness HPI narrative: Patient comes to the emergency room complaining of palpitations, shortness of breath. Patient states that 2 days ago, patient was seen at [facility], patient was diagnosed with new onset atrial fibrillation, metoprolol dose was increased from 25-50 mg and also was started on Eliquis. Patient states that initially, he received a dose of metoprolol and his heart rate decreased to below 100. As soon as he got home, it went up to 120s and for the last couple of days it has been between 10 and 150. Patient states that all the time he feels short of breath, occasional lightheadedness, no syncopal episodes. Related Data Home Medications ?Medication ?Instructions ?Recorded ?Confirmed apixaban 5 mg tablet (Eliquis) 5 mg PO BID 11/25/23 11/25/23 metoprolol succinate 25 mg 50 mg PO DAILY 11/25/23 11/25/23 tablet,extended release 24 hr Allergies Allergy/AdvReac Type Severity Reaction Status Date / Time No Known Allergies Allergy Verified 11/26/23 16:16 Review of Systems Review of Systems: Constitutional : No Weight loss, No Fever, No Chills, No Night Sweats, No Fatigue, No Malaise ENT/Mouth : No Hearing loss, No Ear Pain, No Nasal Congestion, No Sinus Pain, No Hoarseness, No sore throat, No Rhinorrhea, No Swallowing Difficulty Eyes: No Eye Pain, No Swelling, No Redness, No Foreign Body, No Discharge, No Vision Changes Cardiovascular : No Chest Pain, complaining of palpitations, shortness of breath with exertion and at rest, positive orthopnea, no lower extremity edema, near syncopal episodes, dizziness Respiratory : No Cough, No Sputum, No Wheezing, No Smoke Exposure, No Dyspnea Gastrointestinal : No Nausea, No Vomiting, No Diarrhea, No Constipation, No abdominal Pain, No Hematochezia, No Melena Genitourinary : no irregular bleeding, No Dysuria, No Urinary Frequency, No Hematuria, No Urinary Incontinence, No Urgency, No Flank Pain, No Urinary Flow Changes, No Hesitancy Musculoskeletal : No joint pain, No Myalgias, No Joint Swelling Skin : No Skin Lesions, No rash Neuro : No Weakness, No Numbness, No Paresthesias, No Loss of Consciousness, no headache Psych : No Anxiety/Panic, No Depression, No SI/HI/AH/VH, No Social Issues, Heme/Lymph: No Bruising, No Bleeding,No Lymphadenopathy Endocrine : No Polyuria, No Polydipsia, No Temperature Intolerance [facility] Past Medical History Medical History New onset atrial fibrillation Right knee injury Palpitations Bronchitis Supraventricular tachycardia Surgical History History of cardiac radiofrequency ablation H/O right knee surgery Family History Family History Mother High blood pressure Cardiovascular disease Father Cardiovascular disease Social History Social History Housing: House Alcohol intake: current Alcohol intake frequency: holidays/special occasions only Patient Tobacco Use Status: Never used Tobacco e-Cigarette/Vaping Use: Never Used Advance Directives: No Advance Directives Information Provided: No Do you have a plan to hurt others: No Plan service: No Current occupational status: employed 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 Oriented X3. No acute distress. Eyes: Pupils equal, round and reactive to light. ENT: Pharynx normal. Neck: Normal inspection. Neck supple. No lymph nodes noted. No crepitus CVS: Heart rate irregularly irregular, heart rate between 120-140 Respiratory: No respiratory distress. Breath sounds normal. No Wheezing. No rales Abdomen: Soft and nontender. No rigidity. No distention. Skin: Skin warm and dry. Normal skin color. Normal skin turgor. Extremities: No lower extremity edema. No Lacerations. No Rash Neuro: Oriented X 3. No motor deficit. No sensory deficit. Moving all extremities. No slurred speech. CN 2 through 12 grossly intact Psych: calm, cooperative, normal affect Course Course Course Narrative: This is a Rapid Medical Examination (RME) performed by Daniella Zhang PA-C in triage. Full HPI, ROS, assessment and treatment plan per primary provider in the Main ED. 48 yo male w/ remote hx of SVT s/p ablation here w/ chest tightness, shortness of breath since Friday (3 days ago). Was [facility] this week where they increased his metoprolol from 25-50 and placed him on 5 mg Eliquis daily. He was given Lopressor multiple times without improvement in heart rate. His HR has been between 120-160bpm at home via watch. he's had continued chest tightness/ shortness of breath. Follows with darius who recommended he come in today for cardioversion. Plan: labs, ekg, trop, cxr ordered Medications Administered Generic Name Dose Route Start Last Admin Trade Name Freq PRN Reason Stop Dose Admin Calcium Gluconate 2 gm in 100 mls @ 50 mls/hr 11/26/23 18:07 11/26/23 18:24 Calcium Gluconate IV 11/26/23 20:06 50 mls/hr ONCE ONE Administration Discontinued Medications Generic Name Dose Route Start Last Admin Trade Name Freq PRN Reason Stop Dose Admin Metoprolol Tartrate 5 mg 11/26/23 17:09 11/26/23 17:17 Metoprolol Tartrate 5 Mg/5 Ml Vial IVPUSH 11/26/23 17:10 5 mg ONCE ONE Administration Protocol Medical Decision Making Medical Decision Making [facility] Narrative: My interpretation EKG: Atrial fibrillation with RVR rate 125, patient elevation, no T-wave inversion, QTC 438 -patient receiving 1 dose of IV metoprolol. I discussed with the patient that he may need IV Cardizem push and if that does not work, he may need a drip and likely to be admitted. -Seems that earlier today he spoke to Dr. Miller, it is possible that patient may get cardioverted tomorrow -my interpretation of labs: Normal hematology, normal chemistry, BNP elevated 194, troponin negative. -after 1 dose of IV metoprolol, heart rate decreased to the low 90s. However, when patient stood up and walked, the heart rate increased to the 150s. -patient's blood pressure on the softer side, 110 systolic. Patient will be started on the Cardizem drip. Patient given calcium gluconate to prevent further BP drop -I discussed the patient with Dr. Mcgrath, patient being admitted. Patient and agreeable with plan. Differential Diagnosis Differential Diagnoses: The differential diagnosis associated with the presentation includes (Atrial fibrillation, atrial flutter, SVT, CHF) Admission/Observation Consideration of admission/observation: Escalation of care including admission/observation considered Consult Healthcare Provider Management of the patient was discussed with: Hospitalist Lab Data MDM Lab Attestation statement: I reviewed the patient's lab results. 11/26/23 16:56 11/26/23 16:56 Labs: Lab Results 11/26/23 11/26/23 Range/Units 16:56 16:59 WBC 10.7 (4.8-10.8) X10*3/uL RBC 6.00 H (4.60-5.80) X10*6/uL Hgb 17.6 (14.0-18.0) g/dl Hct 49.5 (42.0-52.0) % MCV 82.5 (80.0-98.0) fL MCH 29.3 (27.0-33.0) pg MCHC 35.6 (31.0-36.0) g/dl RDW 12.2 (11.0-16.0) % Plt Count 377 D (160-400) X10*3/uL MPV 9.3 L (9.4-12.4) fL Immature Gran % (Auto) 1.5 H (0.0-0.4) % Neut % (Auto) 53.6 (45-73) % Lymph % (Auto) 34.9 (20-40) % [place] % (Auto) 7.0 (2-11) % Eos % (Auto) 2.4 (0-4) % Baso % (Auto) 0.6 (0-2) % Lymph # (Auto) 3.7 (1.2-4.9) X10*3/uL [place] # (Auto) 0.8 (0.1-1.2) X10*3/uL Eos # (Auto) 0.3 (0.0-0.4) X10*3/uL Baso # (Auto) 0.1 (0.0-0.2) X10*3/uL Abs Immat Gran (auto) 0.16 H (0.00-0.03) X10*3/uL Absolute Neuts (auto) 5.8 (2.0-8.3) x10*3/uL Absolute Nucleated RBC 0.000 (0.0-0.012) X10*3/uL Nucleated RBC % (auto) 0.0 (0.0-0.2) /100WBC Sodium 140 (135-145) mmol/L Potassium 4.0 (3.3-5.1) mmol/L Chloride 107 (96-108) mmol/L Carbon Dioxide 21 L (22-29) mmol/L Anion Gap 16 (12-20) BUN 21 H (9-16) mg/dL Creatinine 0.91 (0.5-1.4) mg/dL Estim Creat Clear Calc 107.7 Estimated GFR > 60 Random Glucose 85 (60-115) mg/dL Calcium 9.4 (8.4-10.2) mg/dL Magnesium 2.3 (1.6-2.6) mg/dL Total Bilirubin 0.5 (0.0-1.0) mg/dL AST 21 (5-37) U/L ALT 31 (0-40) U/L Alkaline Phosphatase 60 (39-117) U/L Troponin I High Sens < 2.7 (<3.5-35.0) ng/L B-Natriuretic Peptide 194 H (<100) pg/mL Total Protein 7.7 (6.5-8.0) g/dL Albumin 4.4 (3.5-5.0) g/dL Lipase 26 (8-78) U/L Independent Interpretation I performed an independent interpretation of an: EKG and Plain X-Ray (My interpretation of chest x-ray: No pulmonary edema or pleural effusions) Radiology Impression Discussion of test interpretation with radiology: I have reviewed the radiologist's reading. Radiologist Impression: No significant abnormality is noted involving the heart, lungs, mediastinum, bony thorax or soft tissues. A loop recorder overlies the left chest. XR/XR chest 1V IMPRESSION: Unremarkable examination. Critical Care Time Critical Care Time Critical Care Time: Yes Total Critical Care Time: 60 Attestation: I have personally provided critical care time. Time includes review of lab data, radiology results, discussion with consultants, and monitoring for potential decompensation. Intervention performed as documented. Discharge Plan Discharge Clinical Impression: Atrial fibrillation with RVR Patient Disposition: Admitted As Inpatient Prescriptions: No Action metoprolol succinate 25 mg tablet extended release 24 hr 50 mg PO DAILY Eliquis 5 mg tablet 5 mg PO BID Print Language: Kosovan
--- NOTE | 2023-11-26 16:16 | ECG_ITS ---
Test Reason : AFIBB Blood Pressure : / mmHG Vent. Rate : 125 BPM Atrial Rate : 000 BPM P-R Int : 000 ms QRS Dur : 082 ms QT Int : 304 ms P-R-T Axes : 000 -02 -04 degrees QTc Int : 438 ms Atrial fibrillation with rapid ventricular response with premature ventricular or aberrantly conducted complexes Abnormal ECG No previous ECGs available Referred By: Marimar Zhang Electronically Signed By:Rafael Llanos
[2023-11-26 17:01] LABS: MANUAL DIFF FLAG NO
[2023-11-26 17:03] LABS: Basophils Absolute Auto 0.1 X10*3/uL (0.0-0.2); Basophils Percent Auto 0.6 % (0-2); Eosinophils Absolute Auto 0.3 X10*3/uL (0.0-0.4); Eosinophils Percent Auto 2.4 % (0-4); Hematocrit 49.5 % (42.0-52.0); Hemoglobin 17.6 g/dl (14.0-18.0); Imm Gran Abs Auto 0.16 X10*3/uL (0.00-0.03); Imm Gran Pct Auto 1.5 % (0.0-0.4); Lymphocytes Absolute Auto 3.7 X10*3/uL (1.2-4.9); Lymphocytes Percent Auto 34.9 % (20-40); Mean Corpuscular HGB Conc 35.6 g/dl (31.0-36.0); Mean Corpuscular Hemoglobin 29.3 pg (27.0-33.0); Mean Corpuscular Volume 82.5 fL (80.0-98.0); Mean Platelet Volume 9.3 fL (9.4-12.4); Monocytes Absolute Auto 0.8 X10*3/uL (0.1-1.2); Neutrophils Absolute Auto 5.8 x10*3/uL (2.0-8.3); Neutrophils Percent Auto 53.6 % (45-73); Platelet Count 377 X10*3/uL (160-400); Red Cell Distribution Width 12.2 % (11.0-16.0); White Blood Count 10.7 X10*3/uL (4.8-10.8)
[2023-11-26 17:13] VITALS: BP 109/62; PULSE 121; RESP 13; O2SAT 97
[2023-11-26] MEDS: Metoprolol Tartrate 5 MG/5 ML VIAL IVPUSH (17:17)
[2023-11-26 17:28] LABS: Alanine Aminotransferase 31 U/L (0-40); Albumin Level 4.4 g/dL (3.5-5.0); Alkaline Phosphatase 60 U/L (39-117); Anion Gap 16 (12-20); Aspartate Amino Transferase 21 U/L (5-37); Bilirubin Total 0.5 mg/dL (0.0-1.0); Blood Urea Nitrogen 21 mg/dL (9-16); Calcium 9.4 mg/dL (8.4-10.2); Carbon Dioxide 21 mmol/L (22-29); Chloride 107 mmol/L (96-108); Creatinine Clr Calc Pharmacy 107.7; Estimated Glomerular Filt Rate > 60; Glucose Random 85 mg/dL (60-115); Lipase 26 U/L (8-78); Magnesium 2.3 mg/dL (1.6-2.6); Sodium 140 mmol/L (135-145); Total Protein 7.7 g/dL (6.5-8.0)
[2023-11-26 17:36] LABS: B Type Natriuretic Peptide 194 pg/mL (<100)
[2023-11-26 17:38] LABS: Troponin-I High Sensitivity < 2.7 ng/L (<3.5-35.0)
--- NOTE | 2023-11-26 17:47 | MHC.EDTECH ---
took patient for a walk to check heart rate. HR 109 at rest before walking. After walking around the unit his heart rate was in the 130-140's. RN notified.
--- OUTSIDE RECORDS SUMMARY | 2023-11-26 17:48 | XMS_ITS | Continuity of Care Document ---
Author Organization [facility] Address [address] [address]- Care Team Providers Care Chemical Compounder Name Role Phone Keith DELGADO, Ravidnra Primary Care Physician Encounter [facility] Date(s): 10/15/23 - 10/22/23 [facility] [address] [address]- Attending Physician: Clemente Rodríguez MD Admitting Physician: Clemente Rodríguez MD Referring Physician: Rafa Miller MD Allergies, Adverse Reactions, Alerts No Known Allergies Medications gabapentin 100 mg oral capsule 100 mg, By Mouth, 3 times a day, # 21 capsule, Refills 0, Tot. Refills 0, Maintenance, 03/10/18 11:34:35 EDT, Print Requisition Start Date: 03/10/18 Stop Date: 03/17/18 Status: Ordered Toprol XL 25 mg oral tablet, extended release 25 mg, 1, tablet, By Mouth, Daily, # 30 tablet, Refills 4, Tot. Refills 4, Maintenance, 10/15/23 15:37:00 EDT, Route to Pharmacy Electronically, [facility]/pharmacy #[id number], Partial fill upon patient request if the prescription is for a schedule II opioid drug. Start Date: 10/15/23 Status: Ordered Problem List Condition Confirmation Course Effective Dates Status H ealth Status Informant Cough Confirmed Active Dyspnea at rest Confirmed Active Dyspnea on exertion Confirmed Active Palpitations Confirmed Active Paroxysmal supraventricular tachycardia 1 Confirmed Active Syncope Confirmed 2016 Active Vitiligo Confirmed Active Wheezing 2 Confirmed Active 1Status post ablation, age 17 2Normal spirometry, 01/14/17, makes asthma unlikely Vital Signs Most recent to oldest [Reference Range]: 1 Weight 99.7 kg (10/15/23 3:02 PM) Oxygen Saturation [94-100 %] 97 % (10/15/23 3:02 PM) Pulse Rate [55-90 bpm] 64 bpm (10/15/23 3:02 PM) Blood Pressure [90-138/55-84 mm Hg] 121/ 66mm Hg (10/15/23 3:02 PM) Blood pressure sites Arm, left (10/15/23 3:02 PM) Weight Obtained Via Standing scale (10/15/23 3:02 PM) Social History Social History Type Response Smoking Status Never smoker entered on: 01/09/17 Sex EKG study * Event Display: ECG 12-Lead Authored Date: Please click on pdf link to open report * Event Display: ECG 12-Lead Authored Date: Ventricular Rate: 64 BPM Atrial Rate: 64 BPM P-R Interval: 140 ms QRS Duration: 82 ms Q-T Interval: 380 ms QTC Calculation(Bazett): 392 ms P [place]: 41 degrees R [place]: 8 degrees T [place]: 22 degrees Normal sinus rhythm Normal ECG When compared with ECG of 12-FEB-2017 15:39, No significant change was found Confirmed by Julio Chen ([id number]) on 10/15/2023 7:17:18 PM [place]: Julio Chen Cardiology Outpatient Note * Marcos MAGALLON, Clemente Laurent: PERFORM Event Display: Cardiology Note Office Authored Date: Patient: ??GUI VELIZ ? Age:??48 Years?Sex:??Male?:??1975?? Indication for Consult Paroxysmal SVT History of Present Illness/ Interval History I saw Gui in consultation in the cardiac arrhythmia clinic at [facility].?? He is a 48-year-old gentleman??with??remote history of paroxysmal SVT??who underwent a catheter ablation procedure at the age of 17 years??at [facility] by Dr. Ismael Herbert.?? Patient tells me that he was arrhythmia free for almost 30 years??and then over the past??2 years has had recurrent??palpitations described as sudden onset??rapid heart action??lasting as long as 15-20 minutes in duration.?? He had an implanted loop recorder placed which indeed did document episodes of paroxysmal SVT??asfast as 180 bpm.?? He has no presyncope or syncope. ??He has no lightheadedness or dizziness with th anselmo. Review of Systems ?Constitutional, Eye, Skin, Head/Neck, ENMT, Respiratory, Cardio, Gastrointestinal, Endocrine, Muscoloskeletal, Neurologic, Psych reviewed and negative except as noted in HPI.?? Physical Exam Vitals & Measurements HR:??64??(Peripheral)?? BP:??121/66?? SpO2:??97%?? WT:??99.7??kg?? Weight lb/oz: 219 lb 13 oz ?General not in acute distress ?HEENT: PERRLA ?Neck: No JVD, No thyromegaly ?Lungs: clear to auscultation bilaterally ?Cardiovascular: regular rate and rhythm, normal s1 and s2 no murmurs ?Abdomen: soft, nontender, positive bowel sounds ?Extremities: no edema ?Skin: No rash ?Neuro: grossly normal ?? EKG shows normal sinus rhythm normal conduction intervals. ??No preexcitation Assessment/Plan Symptomatic paroxysmal SVT??status post catheter ablation procedure??30 years ago,??I am unclear what procedure he had SVT (supraventricular tachycardia) Ordered: ECG 12 Lead ?? Orders: Metoprolol, 25 mg, 1, tablet, By Mouth, Daily, # 30 tablet, Refills 4, Tot. Refills 4, Maintenance,10/15/23 15:37:00 EDT, Route to Pharmacy Electronically, [facility]/pharmacy #[id number], Partial fill upon patient request if the prescription is for a schedule II opioid drug. Gui continues to have episodes of paroxysmal SVT. ??These have been documented on implantable loop recorder.?? We had a very long discussion??about the pathophysiology of various forms of SVT??and management strategies including??medications, antiarrhythmics,??or an EP study +/- a catheter proce dure.?? We discussed the EP study +/- a cath ablation procedure in great detail, the overall benefits and risks of the procedure which we are not comfortable??groin complications, tamponade requiring pericardiocentesis,??phrenic nerve injury,??complete heart block requiring pacemaker placement, stroke and myocardial infarction.?? Patient understands and would favor proceeding with this.?? In the meantime, we will start the patient on??metoprolol succinate 25 mg p.o. daily??that he will stop 4 days prior to the anticipated procedure. ?? I spent 1 hour reviewing the patient's chart and in a [id number] discussion with the patient about management strategies of paroxysmal SVT??and the EP study +/- a cath ablation procedure ?? Clemente Rodríguez MD Allergies NKA Home Medications Gabapentin: 100 mg, By Mouth, 3 times a day Metoprolol: 25 mg = 1 tablet, By Mouth, Daily Problem List/Past Medical History Ongoing Cough Dyspnea at rest Dyspnea on exertion Palpitations Paroxysmal supraventricular tachycardia Syncope Vitiligo Wheezing Procedure/Surgical History Ablation of atrioventricular node Social History Alcohol Use: Current. Frequency: 3-5 times per week. Type: Beer. Other: 1-2 beers per session. Employment/School Status: Disabled, Employed. Other: [employer], unable to work due to illness for 3 months. Tobacco Never smoker Family History Mother: Deep venous thrombosis Father: Asbestosis; COPD Daughter: Asthma Patient Care team information Care Team Personnel Name: Ravindra Parker NP Position: Reference Physician Member Role: PCP Address: Address: [address] [place] [id number]- Care Team Related Persons Name: MOI VELIZ Address: home [address] [place] [address] Name: PEE VELIZ Address: home [address] [place] [address]
[2023-11-26] MEDS: Calcium Gluconate/NaCl,Iso-Osm 2 GM/100 ML PLAST..BAG IV (18:24)
[2023-11-26 19:36] VITALS: BP 111/74; PULSE 93; RESP 17; TEMP 36.5; O2SAT 97
--- NOTE | 2023-11-26 19:57 | P.HPHOSP_ITS ---
History of Present Illness Date of Service: 11/26/23 Attending physician on admission: Duc Denson Chief Complaint: Palpitations Pt is a 48-year-old male with a PMH significant for?SVT with hx of ablation at 18 and recent diagnosis of paroxysmal AFib who presents to the ED for evaluation of SOB, chest pain, palpitations, and elevated heart rate. Pt notes he underwent ablation 30 years ago for SVT and since then has followed closely with cardiology. Last winter began having 30-second episodes of palpitations and had loop recorder placed in June. Based off of recorder readings had another ablation scheduled for 01/27/2024. This past weekend pt began experiencing increased episodes of palpitations, SOB, and racing heart. By Friday symptoms were persistent and would not stop; pt presented to [facility] ED on 11/24/2023 where he was found to be in AFib with RVR. Was given metoprolol IV and p.o. with good rate control and was discharged on Eliquis and an increase of metoprolol ER from 25 mg to 50 mg. Once home patient found symptoms persisted and HR began to climb again. Patient continued to experience palpitations, racing heart, and SOB. Last night patient also developed new chest tightness and a sharp left-sided chest pain which kept him up all night. Has also been experiencing headache, dizziness, and ?tunnel vision? that occasionally makes it difficult to walk. Patient reports essentially feeling ?drained? and fatigued. ED contacted Cardiology suggested admitting patient for likely cardioversion in the a.m. In the ED pt was tachycardic up to 120s, vitals otherwise WNL. Labs were significant for mildly elevated BNP of 194, otherwise unremarkable. No leukocytosis. Stable H&H. No electrolyte abnormalities. Renal and hepatic function WNL. Troponin negative. CXR showed unremarkable examination. EKG demonstrated atrial fibrillation with RVR of 125 and PVCs, but no evidence of significant ST elevations or depressions. Pt was treated with calcium gluconate, metoprolol 5 mg IV, and started on diltiazem drip. Pt will be admitted to the hospital for treatment and further evaluation of symptomatic AFib with RVR. Review of Systems 2 Review of Systems: Palpitations, racing heart SOB, lightheadedness, dizziness Headache Chest tightness and sharp left-sided chest pain No fever, chills, N/V, abd pain PMFSH Medical History New onset atrial fibrillation Right knee injury Palpitations Bronchitis Supraventricular tachycardia Family History Mother High blood pressure Cardiovascular disease Father Cardiovascular disease Surgical History History of cardiac radiofrequency ablation H/O right knee surgery Social History Housing: House Alcohol intake: current Alcohol intake frequency: holidays/special occasions only Patient Tobacco Use Status: Never used Tobacco Smoked in Last 30 Days: No e-Cigarette/Vaping Use: Never Used Use of substances other than those prescribed or required for medical reasons: No Advance Directives: No Advance Directives Information Provided: No Do you have a plan to hurt others: No Plan Nutrition Risks: No Nutritional Risk service: No Current occupational status: employed 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 Cognitive needs: No Hearing needs: No Vision needs: No Meds Allergies Allergy/AdvReac Type Severity Reaction Status Date / Time No Known Allergies Allergy Verified 11/26/23 16:16 Active Medications: Current Medications Acetaminophen (Acetaminophen 325 Mg Tablet) 650 mg PO Q6H PRN PRN Reason: Pain, Mild (Pain Scale 1-3) Calcium Gluconate (Calcium Gluconate) 2 gm in 100 mls @ 50 mls/hr IV ONCE ONE Stop: 11/26/23 20:06 Last Admin: 11/26/23 18:24 Dose: 50 mls/hr Diltiazem HCl 125 mg/ Sodium (Chloride) 125 mls @ 0 mls/hr IVCONT .Q0M [facility]; Protocol Melatonin (Melatonin 3 Mg Tablet) 6 mg PO BEDTIME PRN PRN Reason: Insomnia Ondansetron HCl (Ondansetron Hcl 4 Mg/2 Ml Vial) 4 mg IVPUSH Q8H PRN PRN Reason: Nausea and Vomiting Sodium Chloride (0.9 % Sodium Chloride Flush 3 Ml Syringe) [facility] Medications ?Medication ?Instructions ?Recorded ?Confirmed ?Last Taken ?Type apixaban 5 mg tablet (Eliquis) 5 mg PO BID 11/25/23 11/26/2311/25/24 History metoprolol succinate 25 mg 50 mg PO DAILY 11/25/23 11/26/23 11/26/23 History tablet,extended release 24 hr Physical Exam 2 Vital Signs and Narrative: Vital Signs: Last Vital Signs Temp 97.7 F 11/26/23 19:36 Pulse 93 11/26/23 19:36 Resp 17 11/26/23 19:36 BP 111/74 11/26/23 19:36 Pulse Ox 97 11/26/23 19:36 O2 Del Method Room Air 11/26/23 19:36 BMI result Body Mass Index 27.8 General: AOx3, no acute distress Resp: CTA bilaterally CVS: Irregularly irregular rhythm, tachycardic GI: +BS, NT, no distention Skin: Warm, dry Neuro: Cranial nerves II-XII grossly intact bilaterally. Motor grossly intact bilaterally Extremities: No edema Psych: Appropriate affect Results Labs 11/26/23 16:56 11/26/23 16:56 Labs: Laboratory Results - last 24 hr 11/26/23 11/26/23 16:56 16:59 MCV 82.5 MCH 29.3 MCHC 35.6 RDW 12.2 Plt Count 377 D MPV 9.3 L Immature Gran % (Auto) 1.5 H Neut % (Auto) 53.6 Lymph % (Auto) 34.9 [place] % (Auto) 7.0 Eos % (Auto) 2.4 Baso % (Auto) 0.6 Lymph # (Auto) 3.7 [place] # (Auto) 0.8 Eos # (Auto) 0.3 Baso # (Auto) 0.1 Abs Immat Gran (auto) 0.16 H Absolute Neuts (auto) 5.8 Absolute Nucleated RBC 0.000 Nucleated RBC % (auto) 0.0 Anion Gap 16 Estim Creat Clear Calc 107.7 Estimated GFR > 60 Random Glucose 85 Calcium 9.4 Magnesium 2.3 Total Bilirubin 0.5 AST 21 ALT 31 Alkaline Phosphatase 60 Troponin I High Sens < 2.7 B-Natriuretic Peptide 194 H Total Protein 7.7 Albumin 4.4 Lipase 26 Imaging Radiologist's Impressions: Impressions Chest X-Ray 11/26/23 18:15 IMPRESSION: Unremarkable examination. Assessment and Plan (1) Atrial fibrillation with RVR: Status: Acute Plan Pt is a 48-year-old male with a PMH significant for?SVT with hx of ablation at 18 and recent diagnosis of paroxysmal AFib who presents to the ED for evaluation of SOB, chest pain, palpitations, and elevated heart rate. Pt will be admitted to the hospital for treatment and further evaluation of symptomatic AFib with RVR. AFib with RVR Patient with palpitations since last winter Diagnosed with AFib two days prior on 11/23 at [facility] Increased SOB, palpitations, chest pain/tightness, headache, lightheadedness since then Pt started on diltiazem drip in the ED, continue Continue Eliquis Continue home metoprolol Cardiology consult Will keep NPO after midnight for possible cardioversion in AM Monitor on telemetry Hx of SVT with ablation [address] in June 2023 Scheduled for repeat ablation on 01/27/2024 Follow up with cardiology outpatient Full Code Attending:?Dr. Denson DVT Prophylaxis: On Eliquis Pt will require a hospitalization of at least two nights for treatment of?symptomatic AFib with RVR. Given patient's persistent symptoms, he will require hospitalization for treatment with diltiazem drip, close monitoring of cardiac function, and specialist consultation with Cardiology and likely cardioversion in the morning. Quality Stroke Does the patient have a stroke diagnosis?: No VTE Prior VTE?: No VTE Risk Level:: Medical - moderate - high VTE Device Contraindication: Treatment Not Indicated VTE Drug Contraindication: N/A - Med Ordered
[2023-11-26] MEDS: dilTIAZem HCL 125 MG in 0.9 % Sodium Chloride 100 ML 10 MG IVCONT (20:15)
[2023-11-26] MEDS: Acetaminophen 325 MG TABLET 650 MG PO (20:18)
[2023-11-26 20:20] VITALS: BP 115/77; PULSE 125; RESP 16; O2SAT 97
--- NOTE | 2023-11-26 20:26 | PC.NURSE ---
this RN resumed care of pt at 0700. pt a&ox4. vss and up to date aside from remaining afib on the harbor master. pt HR currently fluctuates anywhere between 115-130bpm. pt currently verbalizing slight chest discomfort in left side of chest as well as palpitations. chest tightness nonradiating. denies sob. no sob/wob noted. pt started on cardizem drip per provider order at this time. infusing at a rate of 10mg/hr per [facility] protocol. pt also c/o 09/27 BYNUM - medicated w/ PRN Tylenol - effectiveness pending. pt aware of plan of care in regards to being admitted. pt waiting to speak w/ hospitalist. bedside for support. respirations even and unlabored. plan of care ongoing. call sifuentes placed within reach.
--- NOTE | 2023-11-26 20:58 | PHA.MEDREC ---
Pharmacy Consult ? Medication Reconciliation Pharmacy has completed the medication reconciliation. Spoke to nurse Jennifer who is taking care of patient. She said patient told her he takes eliquis 5 mg bid (took today's morning dose) and metoprolol ER 50 mg daily (took today's dose).
[2023-11-26] MEDS: Apixaban 5 MG TABLET PO (21:14)
--- NOTE | 2023-11-26 21:17 | PC.NURSE ---
pt cardizem drip titrated to 15mg/hr at this time. HR between 100-120bpm. medication administered per provider order. pt provided w/ food and drinks per request. pt spoke w/ hospitalist/aware of plan of care moving forward. respirations remain even and unlabored. call sifuentes placed within reach.
--- NOTE | 2023-11-26 22:19 | PC.NURSE ---
per dr. mcneal order - pt to remain on cardizem drip at 14mg/hr throughout night. plan of care ongoing.
--- NOTE | 2023-11-26 23:05 | PC.NURSE ---
This account underwriter assumed care of this Pt at 2300. Pt A&Ox3, reports chest tightness not new . Yanely mcintyre running per SEP.
[2023-11-27] VITALS (13 sets, daily range): BP systolic 89–121; BP diastolic 50–81; PULSE 65–107; RESP 15–20; TEMP 35.7–36.7; O2SAT 94–100; BMI 28.0
--- NOTE | 2023-11-27 | ECG_ITS ---
Test Reason : s/p cardioversion Blood Pressure : / mmHG Vent. Rate : 068 BPM Atrial Rate : 068 BPM P-R Int : 160 ms QRS Dur : 086 ms QT Int : 378 ms P-R-T Axes : 044 -09 007 degrees QTc Int : 401 ms Normal sinus rhythm Normal ECG When compared with ECG of 26-NOV-2023 16:20, Sinus rhythm has replaced Atrial fibrillation Vent. rate has decreased BY 57 BPM Referred By: Rafael Llanos Electronically Signed By:Rafael Llanos
[2023-11-27] MEDS: 0.9 % Sodium Chloride Flush 3 ML SYRINGE IVFLUSH ×2 (00:20→14:55)
--- NOTE | 2023-11-27 00:26 | PC.NURSE ---
Yanely mcintyre paused. Pt HR below 90's. Dr. Denson made aware.
[2023-11-27 05:42] LABS: MANUAL DIFF FLAG NO
[2023-11-27 05:45] LABS: Basophils Percent Auto 0.4 % (0-2); Eosinophils Absolute Auto 0.3 X10*3/uL (0.0-0.4); Eosinophils Percent Auto 3.1 % (0-4); Hematocrit 46.2 % (42.0-52.0); Hemoglobin 16.7 g/dl (14.0-18.0); Imm Gran Pct Auto 1.9 % (0.0-0.4); Lymphocytes Absolute Auto 4.5 X10*3/uL (1.2-4.9); Lymphocytes Percent Auto 42.5 % (20-40); Mean Corpuscular HGB Conc 36.1 g/dl (31.0-36.0); Mean Corpuscular Hemoglobin 30.1 pg (27.0-33.0); Mean Corpuscular Volume 83.4 fL (80.0-98.0); Mean Platelet Volume 9.6 fL (9.4-12.4); Monocytes Absolute Auto 0.7 X10*3/uL (0.1-1.2); Monocytes Percent Auto 6.3 % (2-11); Neutrophils Absolute Auto 4.9 x10*3/uL (2.0-8.3); Neutrophils Percent Auto 45.8 % (45-73); Platelet Count 335 X10*3/uL (160-400); Red Blood Count 5.54 X10*6/uL (4.60-5.80); Red Cell Distribution Width 12.2 % (11.0-16.0); White Blood Count 10.6 X10*3/uL (4.8-10.8)
[2023-11-27 06:04] LABS: Anion Gap 14 (12-20); Blood Urea Nitrogen 21 mg/dL (9-16); Calcium 9.4 mg/dL (8.4-10.2); Carbon Dioxide 24 mmol/L (22-29); Chloride 106 mmol/L (96-108); Estimated Glomerular Filt Rate > 60; Glucose Random 90 mg/dL (60-115); Potassium 4.3 mmol/L (3.3-5.1); Sodium 140 mmol/L (135-145)
--- NOTE | 2023-11-27 06:43 | PC.NURSE ---
HR fluctuating between 100-120s, Dr. Denson made aware, verbal order to restart Cardizem drip.
--- NOTE | 2023-11-27 07:40 | PC.NURSE ---
pt is alert and oriented, skin pwd, respirations even and unlabored, ls clear, pt reports a slight headache 4/10, denies chest pain and sob, a-fib on the monitor with hr rate ranging from 100-90's but with any slight movement HR jumps to 118-120. Dr العراقي aware and verbal order to hold metoprolol for 0900 if HR at rest continuos on being low and BP on the lower sided as well
--- NOTE | 2023-11-27 10:20 | P.PNIM_ITS ---
Subjective Subjective Date of Service: 11/27/23 Interval History: f/u on afib with rvr associated with palpitation, sob interval history: still in afib with rvr and on iv cardizem Physical Exam 2 Vital Signs: Vital Signs: Last Vital Signs Temp 97.8 F 11/27/23 07:34 Pulse 100 11/27/23 07:34 Resp 18 11/27/23 07:34 BP 101/64 11/27/23 07:34 Pulse Ox 99 11/27/23 07:34 O2 Del Method Room Air 11/27/23 07:34 BMI result Body Mass Index 28.0 General: AO X 3, no acute distress Resp: CTA bilateral CVS: S1,S2, iregular iregular GI: +BS, NT, no distention Skin: No rash Neuro: motor grossly intact Psych: appropriate affect Objective Data Active Medications Acetaminophen (Acetaminophen 325 Mg Tablet) 650 mg PO Q6H PRN PRN Reason: Pain, Mild (Pain Scale 1-3) Last Admin: 11/26/23 20:18 Dose: 650 mg Documented By: AVE Apixaban (Apixaban 5 Mg Tablet) 5 mg PO BID [facility] Last Admin: 11/26/23 21:14 Dose: 5 mg Documented By: AVE Diltiazem HCl 125 mg/ Sodium (Chloride) 125 mls @ 0 mls/hr IVCONT .Q0M [facility]; Protocol Last Titration: 11/27/23 06:46 Dose: 10 mg/hr, 10 mls/hr Documented By: GOPI Melatonin (Melatonin 3 Mg Tablet) 6 mg PO BEDTIME PRN PRN Reason: Insomnia Metoprolol Succinate (Metoprolol Succinate Er 50 Mg Tab.Er.24h) 50 mg PO DAILY [facility]; Protocol Ondansetron HCl (Ondansetron Hcl 4 Mg/2 Ml Vial) 4 mg IVPUSH Q8H PRN PRN Reason: Nausea and Vomiting Sodium Chloride (0.9 % Sodium Chloride Flush 3 Ml Syringe) 3 ml IVFLUSH QSHIFT [facility] Last Admin: 11/27/23 07:35 Dose: Not Given Documented By: RJ Non-Admin Reason: IV Running Labs 11/27/23 04:22 11/27/23 04:22 Labs: Laboratory Results - last 24 hr 11/26/23 11/26/2311/26/24 16:56 16:59 04:22 MCV 82.5 83.4 MCH 29.3 30.1 MCHC 35.6 36.1 H RDW 12.2 12.2 Plt Count 377 D 335 MPV 9.3 L 9.6 Immature Gran % (Auto) 1.5 H 1.9 H Neut % (Auto) 53.6 45.8 Lymph % (Auto) 34.9 42.5 H [place] % (Auto) 7.0 6.3 Eos % (Auto) 2.4 3.1 Baso % (Auto) 0.6 0.4 Lymph # (Auto) 3.7 4.5 [place] # (Auto) 0.8 0.7 Eos # (Auto) 0.3 0.3 Baso # (Auto) 0.1 0.0 Abs Immat Gran (auto) 0.16 H 0.20 H Absolute Neuts (auto) 5.8 4.9 Absolute Nucleated RBC 0.000 0.000 Nucleated RBC % (auto) 0.0 0.0 Anion Gap 16 14 Estim Creat Clear Calc 107.7 99.0 Estimated GFR > 60 > 60 Random Glucose 85 90 Calcium 9.4 9.4 Magnesium 2.3 Total Bilirubin 0.5 AST 21 ALT 31 Alkaline Phosphatase 60 Troponin I High Sens < 2.7 B-Natriuretic Peptide 194 H Total Protein 7.7 Albumin 4.4 Lipase 26 Assessment and Plan (1) Atrial fibrillation with RVR: Status: Acute Plan Pt is a 48-year-old male with a PMH significant for?SVT with hx of ablation at 18 and recent diagnosis of paroxysmal AFib who presents to the ED for evaluation of SOB, chest pain, palpitations, and elevated heart rate. Pt will be admitted to the hospital for treatment and further evaluation of symptomatic AFib with RVR. AFib with RVR-- -continue iv cardizem and oral metoprolol -eliquis -cardiology to consider cardioversio Hx of SVT with ablation [address] in June 2023 Scheduled for repeat ablation on 01/27/2024 Follow up with cardiology outpatient Full Code DVT Prophylaxis: On Eliquis need for inpt: Symptomatic AFIB with RVR needing IV cardizem and constant cardiac monitoring Quality Stroke Does the patient have a stroke diagnosis?: No VTE Prior VTE?: No VTE Risk Level:: Medical - moderate - high VTE Device Contraindication: Treatment Not Indicated VTE Drug Contraindication: N/A - Med Ordered
--- NOTE | 2023-11-27 10:20 | MHC.CM.PN ---
CM met with Patient at bedside. 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 Home/self care is the goal and CM has initiated and will follow for dc planning. PCP is Dr. Ravindra Parker.
[2023-11-27] MEDS: Metoprolol Succinate ER 50 MG TAB.ER.24H PO (10:28)
[2023-11-27] MEDS: Apixaban 5 MG TABLET PO (10:29)
[2023-11-27] MEDS: dilTIAZem HCL 125 MG in 0.9 % Sodium Chloride 100 ML 10 MG IVCONT (12:46)
--- NOTE | 2023-11-27 13:00 | P.CONAN_ITS ---
HPI - Anesthesia Eval Consult details Narrative: for CHRIS/cardioversion [facility] Active Problems Active Problems: All Active Problems Atrial fibrillation with RVR (Acute) New onset atrial fibrillation (Acute) Implantable loop recorder present (Acute) Palpitations (Acute) Hypercholesterolemia (Acute) Laboratory tests ordered as part of a complete physical exam (CPE) (Acute) Supraventricular tachycardia (Acute) Normal physical examination, routine (Acute) Past Medical History Medical History New onset atrial fibrillation Right knee injury Palpitations Bronchitis Supraventricular tachycardia Family History Family History Mother High blood pressure Cardiovascular disease Father Cardiovascular disease Family history of problems with anesthesia: No Surgical History Surgical History History of cardiac radiofrequency ablation H/O right knee surgery History of Problems with Anesthesia: No Social History Social History Household Members: Spouse Housing: House Alcohol intake: current Alcohol intake frequency: a few times a week Comment: Only Fall risk r/t dizziness Patient Tobacco Use Status: Never used Tobacco e-Cigarette/Vaping Use: Never Used Second Hand Smoke Exposure: No service: No Current occupational status: employed 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 Cognitive needs: No Hearing needs: No Vision needs: No Meds Allergies Allergy/AdvReac Type Severity Reaction Status Date / Time No Known Allergies Allergy Verified 11/26/23 16:16 Active Medications: Current Medications Acetaminophen (Acetaminophen 325 Mg Tablet) 650 mg PO Q6H PRN PRN Reason: Pain, Mild (Pain Scale 1-3) Last Admin: 11/26/23 20:18 Dose: 650 mg Apixaban (Apixaban 5 Mg Tablet) 5 mg PO BID [facility] Last Admin: 11/27/23 10:29 Dose: 5 mg Diltiazem HCl 125 mg/ Sodium (Chloride) 125 mls @ 0 mls/hr IVCONT .Q0M [facility]; Protocol Last Admin: 11/27/23 12:46 Dose: 10 mg/hr, 10 mls/hr Melatonin (Melatonin 3 Mg Tablet) 6 mg PO BEDTIME PRN PRN Reason: Insomnia Metoprolol Succinate (Metoprolol Succinate Er 50 Mg Tab.Er.24h) 50 mg PO DAILY [facility]; Protocol Last Admin: 11/27/23 10:28 Dose: 50 mg Ondansetron HCl (Ondansetron Hcl 4 Mg/2 Ml Vial) 4 mg IVPUSH Q8H PRN PRN Reason: Nausea and Vomiting Sodium Chloride (0.9 % Sodium Chloride Flush 3 Ml Syringe) 3 ml IVFLUSH QSHIFT [facility] Last Admin: 11/27/23 07:35 Dose: Not Given Home Medications ?Medication ?Instructions ?Recorded ?Confirmed ?Last Taken ?Type apixaban 5 mg tablet (Eliquis) 5 mg PO BID 11/25/23 11/26/23 11/26/23 History metoprolol succinate 25 mg 50 mg PO DAILY 11/25/23 11/26/23 11/26/23 History tablet,extended release 24 hr Exam Height,Weight and Vital Signs: Height 6 ft Weight 93.6 kg Last Vital Signs Temp 97.6 F 11/27/23 09:30 Pulse 97 11/27/23 12:00 Resp 16 11/27/23 12:00 BP 115/73 11/27/23 10:28 Pulse Ox 100 11/27/23 12:00 O2 Del Method Room Air 11/27/23 12:00 Pertinent Lab Results Pertinent Lab Results: Laboratory Tests 11/26/23 11/26/23 11/27/23 16:56 16:59 04:22 WBC 10.7 10.6 RBC 6.00 H 5.54 Hgb 17.6 16.7 Hct 49.5 46.2 MCV 82.5 83.4 MCH 29.3 30.1 MCHC 35.6 36.1 H RDW 12.2 12.2 Plt Count 377 D 335 MPV 9.3 L 9.6 Immature Gran % (Auto) 1.5 H 1.9 H Neut % (Auto) 53.6 45.8 Lymph % (Auto) 34.9 42.5 H [place] % (Auto) 7.0 6.3 Eos % (Auto) 2.4 3.1 Baso % (Auto) 0.6 0.4 Lymph # (Auto) 3.7 4.5 [place] # (Auto) 0.8 0.7 Eos # (Auto) 0.3 0.3 Baso # (Auto) 0.1 0.0 Abs Immat Gran (auto) 0.16 H 0.20 H Absolute Neuts (auto) 5.8 4.9 Absolute Nucleated RBC 0.000 0.000 Nucleated RBC % (auto) 0.0 0.0 Sodium 140 140 Potassium 4.0 4.3 Chloride 107 106 Carbon Dioxide 21 L 24 Anion Gap 16 14 BUN 21 H 21 H Creatinine 0.91 0.99 Estim Creat Clear Calc 107.7 99.0 Estimated GFR > 60 > 60 Random Glucose 85 90 Calcium 9.4 9.4 Magnesium 2.3 Total Bilirubin 0.5 AST 21 ALT 31 Alkaline Phosphatase 60 Troponin I High Sens < 2.7 B-Natriuretic Peptide 194 H Total Protein 7.7 Albumin 4.4 Lipase 26 Airway Mallampati Class: I TM Dist: >3cm Neck ROM: Full Loose/Missing/Broken Teeth: No Heart: afib, otherw OK Lungs: ok Assessment and Plan Assessment Anesthesia Assessment: Anesthesia Plan Discussed and Chart Reviewed Final Anesthetic Review Family History of Problems with Anesthesia: No History of Problems with Anesthesia: No NPO: Yes ASA Class: III Final Preanesthetic Review: No Changes in Pt Med Stat, Meds/Allgs Chart Reviewed, Consent Obtained/Reviewed and Anes Risks/Benef Reviewed Patient Risk: Low Procedure Risk: Intermediate Anesthetic Plan Anesthetic Plan: Agree w/ Assess. and Plan and TIVA Disposition: Standard PACU
--- NOTE | 2023-11-27 13:25 | MHC.SHP ---
Pre-Procedural Eval Section A - 24 Hr Update-Section A only Date of Service: 11/27/23 The patient is an INPATIENT: Yes The patient has been examined within 24 hours of the surgical procedure. The History & Physical has been completed within 30 days and I have reviewed it.: Yes Section B - Complete if H&P > 30 days Chief Complaint: Tachycardia Afib Details of Present Illness: CHRIS cardioversion Allergies: Allergies Allergy/AdvReac Type Severity Reaction Status Date / Time No Known Allergies Allergy Verified 11/26/23 16:16 Plan Diagnosis/Plan: Unchanged I have reviewed the history and physical and performed a pertinent physical examination on my patient. No changes have occurred unless specified. Time Spent With Patient Time: Total time managing care of this patient today ____ minutes.
--- NOTE | 2023-11-27 13:45 | CA_ITS ---
Transesophageal Echocardiogram Patient (Last, First, Middle): Gui Kent, Gender: Male Date of : 1975 Age: 48 Procedure Date: 11/27/2023 Procedure Type: Transesophageal Echocardiogram [place] [facility] [place] Height: 182.88 cm Weight: 93.44 kg BSA: 2.16 m2 Heart Rate: bpm House Admin: ARLEN Luo MD: Rafael Llanos MD Symptoms: afib Conclusion: ??? Normal left ventricular size and systolic function. The visually estimated ejection fraction is between 55-60%. Diastolic function is indeterminate on the basis of available data. ??? The left atrial appendage is normal in size and flow. There is no evidence of a thrombus in the left atrial appendage. ??? We proceeded with cardioversion. Findings Left Ventricle Normal left ventricular size and systolic function. The visually estimated ejection fraction is between 55-60%. Diastolic function is indeterminate on the basis of available data. Right Ventricle Normal right ventricular cavity size and systolic function. Atria The left atrial appendage is normal in size and flow. There is no evidence of a thrombus in the left atrial appendage. Aortic Valve Normal aortic valve structure and function. Mitral Valve Normal mitral valve structure and function. There is trace mitral valve regurgitation. Pulmonic Valve The pulmonic valve was not well visualized. Tricuspid Valve Normal tricuspid valve structure and function. There is trace tricuspid valve regurgitation. Great Vessels All visible segments of the aorta are normal in size. Pericardium/Pleural There is no evidence of pericardial effusion. Updated by Rafael Llanos on 04:02 PM with Status of Final Rafael Llanos MD electronically signed on 11/27/2023 4:02:23 PM with status of Final
--- NOTE | 2023-11-27 14:07 | P.CONCA_ITS ---
History of Present Illness History of Present Illness Date of Service: 11/27/23 Requesting physician: Ranjit Varela Chief complaint: Afib Narrative: [age] gentleman who is presenting to [facility] with palpitations and atrial fibrillation with rapid ventricular response. Has known history of supraventricular tachycardia and underwent ablation in the past. He has been experiencing palpitations and had ILR placed which showed atrial fibrillation. Was started on metoprolol and apixaban and was being planned to undergo outpatient cardioversion but apparently was getting significant palpitations and got admitted yesterday. No chest pain or shortness of breath. He is due to get SVT ablation at [facility] with Dr. Rodríguez. He was started on Eliquis previously because of planned cardioversion. He was taking metoprolol succinate 50 mg daily. Does not drink heavily. No other obvious risk factors for AFib other than SVT as sometime SVT triggered atrial fibrillation. [facility] Past Medical History Medical History New onset atrial fibrillation Right knee injury Palpitations Bronchitis Supraventricular tachycardia Family History Family History Mother High blood pressure Cardiovascular disease Father Cardiovascular disease Surgical History Surgical History History of cardiac radiofrequency ablation H/O right knee surgery Social History Social History Household Members: Spouse Housing: House Alcohol intake: current Alcohol intake frequency: a few times a week Comment: Only Fall risk r/t dizziness Patient Tobacco Use Status: Never used Tobacco e-Cigarette/Vaping Use: Never Used Second Hand Smoke Exposure: No service: No Current occupational status: employed 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 Cognitive needs: No Hearing needs: No Vision needs: No Meds Allergies Allergy/AdvReac Type Severity Reaction Status Date / Time No Known Allergies Allergy Verified 11/26/23 16:16 Active Medications: Current Medications Acetaminophen (Acetaminophen 325 Mg Tablet) 650 mg PO Q6H PRN PRN Reason: Pain, Mild (Pain Scale 1-3) Last Admin: 11/26/23 20:18 Dose: 650 mg Apixaban (Apixaban 5 Mg Tablet) 5 mg PO BID [facility] Last Admin: 11/27/23 10:29 Dose: 5 mg Fentanyl (Fentanyl Citrate/Pf 100 Mcg/2 Ml Vial) 50 mcg IVPUSH Q5M PRN; Protocol PRN Reason: Pain, Severe (Pain Scale 7-10) Stop: 11/27/23 19:12 Diltiazem HCl 125 mg/ Sodium (Chloride) 125 mls @ 0 mls/hr IVCONT .Q0M [facility]; Protocol Last Admin: 11/27/23 12:46 Dose: 10 mg/hr, 10 mls/hr Melatonin (Melatonin 3 Mg Tablet) 6 mg PO BEDTIME PRN PRN Reason: Insomnia Metoprolol Succinate (Metoprolol Succinate Er 50 Mg Tab.Er.24h) 50 mg PO DAILY [facility]; Protocol Last Admin: 11/27/23 10:28 Dose: 50 mg Ondansetron HCl (Ondansetron Hcl 4 Mg/2 Ml Vial) 4 mg IVPUSH Q8H PRN PRN Reason: Nausea and Vomiting Sodium Chloride (0.9 % Sodium Chloride Flush 3 Ml Syringe) 3 ml IVFLUSH QSHIFT [facility] Last Admin: 11/27/23 07:35 Dose: Not Given Home Medications ?Medication ?Instructions ?Recorded ?Confirmed ?Last Taken ?Type apixaban 5 mg tablet (Eliquis) 5 mg PO BID 11/25/23 11/26/23 11/26/23 History metoprolol succinate 25 mg 50 mg PO DAILY 11/25/23 11/26/23 11/26/23 History tablet,extended release 24 hr Physical Exam 2 Vital Signs: Vital Signs: Last Vital Signs Temp 97.3 F 11/27/23 13:05 Pulse 86 11/27/23 13:05 Resp 16 11/27/23 13:05 BP 109/81 11/27/23 13:05 Pulse Ox 98 11/27/23 13:05 O2 Del Method Room Air 11/27/23 13:05 BMI result Body Mass Index 28.0 GENERAL APPEARANCE: in no acute distress, pleasant. NECK: no carotid bruit, no jugular venous distention. SKIN: no suspicious lesions, warm and dry. HEART: no murmurs, irregular rate and rhythm. Tachycardic. LUNGS: clear to auscultation bilaterally. ABDOMEN: soft, nontender. EXTREMITIES: no edema. PERIPHERAL PULSES: equal. NEUROLOGIC: No gross deficits, AAO X 3 Objective Labs and Meds 11/27/23 04:22 11/27/23 04:22 Lab results: Laboratory Results - last 24 hr 11/26/23 11/26/23 11/27/23 16:56 16:59 04:22 WBC 10.7 10.6 RBC 6.00 H 5.54 Hgb 17.6 16.7 Hct 49.5 46.2 MCV 82.5 83.4 MCH 29.3 30.1 MCHC 35.6 36.1 H RDW 12.2 12.2 Plt Count 377 D 335 MPV 9.3 L 9.6 Immature Gran % (Auto) 1.5 H 1.9 H Neut % (Auto) 53.6 45.8 Lymph % (Auto) 34.9 42.5 H [place] % (Auto) 7.0 6.3 Eos % (Auto) 2.4 3.1 Baso % (Auto) 0.6 0.4 Lymph # (Auto) 3.7 4.5 [place] # (Auto) 0.8 0.7 Eos # (Auto) 0.3 0.3 Baso # (Auto) 0.1 0.0 Abs Immat Gran (auto) 0.16 H 0.20 H Absolute Neuts (auto) 5.8 4.9 Absolute Nucleated RBC 0.000 0.000 Nucleated RBC % (auto) 0.0 0.0 Sodium 140 140 Potassium 4.0 4.3 Chloride 107 106 Carbon Dioxide 21 L 24 Anion Gap 16 14 BUN 21 H 21 H Creatinine 0.91 0.99 Estim Creat Clear Calc 107.7 99.0 Estimated GFR > 60 > 60 Random Glucose 85 90 Calcium 9.4 9.4 Magnesium 2.3 Total Bilirubin 0.5 AST 21 ALT 31 Alkaline Phosphatase 60 Troponin I High Sens < 2.7 B-Natriuretic Peptide 194 H Total Protein 7.7 Albumin 4.4 Lipase 26 Imaging Radiologist's impression: Impressions Chest X-Ray 11/26/23 18:15 IMPRESSION: Unremarkable examination. Assessment and Plan (1) Atrial fibrillation with RVR: Status: Acute Plan [age] gentleman who is presenting with AFib with RVR. He is symptomatic with palpitations. Our plan was to do outpatient cardioversion but he got admitted due to ongoing symptoms. Clinically not in heart failure. Our plan is to do a CHRIS cardioversion today. Continue Eliquis 5 mg twice a day. Continue metoprolol succinate 50 mg daily. Post cardioversion, if successful, we will start him on flecainide 50 mg twice a day. He is due to get SVT ablation at [facility] with Dr. Rodríguez. SVT can be a trigger for atrial fibrillation in his case. He may need AFib ablation at the same time but will leave that to electrophysiology to discuss with the patient. Continue anticoagulation uninterrupted for the next 6 weeks. Thank you for allowing me to participate in the care of your patient. Please feel free to contact me if you have any questions. Procedures Date of Service Date of Service: 11/27/23
--- NOTE | 2023-11-27 14:11 | P.PNCAR_ITS ---
Cardioversion Procedure Note Cardioversion Date of Procedure: 11/27/23 Ordering Provider: Rafael Llanos Performing Provider: Rafael Llanos Indication for Procedure: Symptomatic Afib Performed with Transesophageal Echo: Yes CHRIS findings (if CHRIS Performed): No LA or FRANDY clot History: [age] year gentleman with palpitations and new onset atrial fibrillation with rapid ventricular response. He is here for CHRIS cardioversion. Consent: Verbal and Written consent was obtained from the patient before starting. The patient was made aware of the risk of stroke, failure, skin burn as well as oth er arrhythmia. Procedure: After consent obtained, defib pads were attached and the patient was sedated by the anesthesia team. Once adequate sedation achieved, single synchronized shock of 200 joules was given to the patient. He converted to sinus rhythm. He was left with anesthesia for recovery in stable condition. Complications: None. Impression: Successful cardioversion. Recommendations: Continue apixaban 5 mg twice a day. Continue Toprol-XL. Adding flecainide 50 mg twice a day.
--- NOTE | 2023-11-27 14:30 | P.DS_ITS ---
DS: Providers Provider Date of Service: 11/27/23 Date of admission: 11/26/23 19:49 Primary care physician: Ravindra aPrker Consults: 11/26/23 19:49 Consult to Cardiology Routine Consulting Provider: [facility] Cardiovascular Services Reason for consultation: atrial arrythmia Has provider been notified: Yes DS: Diagnosis Discharge Diagnosis (1) Atrial fibrillation with RVR: Status: Acute DS: Summary Hospital Course Hospital Course: Chief Complaint: Palpitations Pt is a 48-year-old male with a PMH significant for?SVT with hx of ablation at 18 and recent diagnosis of paroxysmal AFib who presents to the ED for evaluation of SOB, chest pain, palpitations, and elevated heart rate. Pt notes he underwent ablation 30 years ago for SVT and since then has followed closely with cardiology. Last winter began having 30-second episodes of palpitations and had loop recorder placed in June. Based off of recorder readings had another ablation scheduled for 01/27/2024. This past weekend pt began experiencing increased episodes of palpitations, SOB, and racing heart. By Friday symptoms were persistent and would not stop; pt presented to [facility] ED on 11/24/2023 where he was found to be in AFib with RVR. Was given metoprolol IV and p.o. with good rate control and was discharged on Eliquis and an increase of metoprolol ER from 25 mg to 50 mg. Once home patient found symptoms persisted and HR began to climb again. Patient continued to experience palpitations, racing heart, and SOB. Last night patient also developed new chest tightness and a sharp left-sided chest pain which kept him up all night. Has also been experiencing headache, dizziness, and ?tunnel vision? that occasionally makes it difficult to walk. Patient reports essentially feeling ?drained? and fatigued. ED contacted Cardiology suggested admitting patient for likely cardioversion in the a.m. In the ED pt was tachycardic up to 120s, vitals otherwise WNL. Labs were significant for mildly elevated BNP of 194, otherwise unremarkable. No leukocytosis. Stable H&H. No electrolyte abnormalities. Renal and hepatic function WNL. Troponin negative. CXR showed unremarkable examination. EKG demonstrated atrial fibrillation with RVR of 125 and PVCs, but no evidence of significant ST elevations or depressions. Pt was treated with calcium gluconate, metoprolol 5 mg IV, and started on diltiazem drip. Pt will be admitted to the hospital for treatment and further evaluation of symptomatic AFib with RVR. hospital course: The patient was admitted due to atrial fibrillation with rapid ventricular response (RVR). They commenced treatment with intravenous Cardizem and maintained oral Metoprolol. Following cardioversion, sinus rhythm was restored. The treatment plan now includes initiating Flecainide 50 mg twice daily alongside ongoing Metoprolol and Eliquis therapy. Time Attestation Discharge Coordination Time (in mins): 35 Quality: Safe Use of Opioids Does Pt have an Active Cancer Diagnosis on the Problem List?: No Quality: Stroke Does the patient have a stroke diagnosis?: No Physical Exam Vital Signs: Vital Signs: Last Vital Signs Temp 97.1 F 11/27/23 14:19 Pulse 67 11/27/23 14:19 Resp 20 11/27/23 14:19 BP 109/74 11/27/23 14:19 Pulse Ox 96 11/27/23 14:19 O2 Del Method Room Air 11/27/23 14:19 BMI result Body Mass Index 28.0 Discharge Plan Discharge Anticipated Discharge Date/Time: 11/27/23 14:25 Patient Disposition: Home, Self-Care Discharge Diagnosis: AFIB with RVR Referrals: Ravindra Parker [Primary Care Provider] - 1 Week Discharge Medications: New flecainide 50 mg Tablet 50 mg PO BID Qty: 180 0RF Continued metoprolol succinate 25 mg tablet extended release 24 hr 50 mg PO DAILY Eliquis 5 mg tablet 5 mg PO BID Discharge Orders: Discharge Order (Routine); Ordered 11/27/23 Ordered By: Ranjit Varela Diet: Advance to usual diet Activity on Discharge: As tolerated Stand Alone Forms: Patient Portal Discharge page Print Language: Upper Sorbian Care Plan Goals: control of atrial fibrilation Health Concerns: atrial fibrilation Plan of Treatment: -take metoprolol, flecainide and eliquis as directed -follow up with your rn med surg Assessment: see above
[2023-11-27] MEDS: Flecainide Acetate 50 MG TABLET PO (14:52)
[2023-11-27] MEDS: Acetaminophen 325 MG TABLET 650 MG PO (16:16)
== END 2023-11-27 18:28 | disposition home or self-care (01) | DRG 201 ==
LOC: HO.ED 19:54 → HO.EDOVER 19:57 → HO.IMC 11-27 07:52
PROVIDERS: Internal Medicine Cardiovascular Disease; Physician Assistant Medical; Admitting Provider Student in an Organized Health Care Education/Training Program; Emergency Provider Emergency Medicine; Visit Provider Internal Medicine
PROC: 5A2204Z Restoration of Cardiac Rhythm, Single (ICD-10-PCS; CPT 93312; principal; 2023-11-27 13:00)
PROC: 5A2204Z Restoration of Cardiac Rhythm, Single (ICD-10-PCS; 2023-11-27 13:00)
DX: I48.0 Paroxysmal atrial fibrillation (principal); Z79.01 Long term (current) use of anticoagulants; Z79.899 Other long term (current) drug therapy
CPT/HCPCS: 36415; 71045; 80048; 80053; 83690; 83735; 83880; 84484; 85025; 92960; 93005; 99285; J0613; J2704

== ENCOUNTER 2023-11-26 19:49 | Outpatient (BNV) | payer OTHER, SELFPAY | END 2023-11-27 13:45 | PROVIDERS: Admitting Provider Student in an Organized Health Care Education/Training Program; Emergency Provider Emergency Medicine; Visit Provider Internal Medicine Cardiovascular Disease | DX: I48.91 Unspecified atrial fibrillation (principal); Z01.810 Encounter for preprocedural cardiovascular examination | CPT/HCPCS: 93010; 93312 ==

== ENCOUNTER → 2023-11-26 19:49 | Outpatient (BNV) | payer OTHER, SELFPAY | PROVIDERS: Admitting Provider Student in an Organized Health Care Education/Training Program; Emergency Provider Emergency Medicine; Visit Provider Student in an Organized Health Care Education/Training Program | DX: I48.91 Unspecified atrial fibrillation (principal) | CPT/HCPCS: 99223; 99239; 99499 ==

== ENCOUNTER → 2023-11-26 19:49 | Outpatient (BNV) | payer OTHER, SELFPAY | PROVIDERS: Admitting Provider Student in an Organized Health Care Education/Training Program; Emergency Provider Emergency Medicine; Visit Provider Internal Medicine Cardiovascular Disease | DX: I48.91 Unspecified atrial fibrillation (principal) | CPT/HCPCS: 92960; 93010; 99223 ==

== ENCOUNTER 2023-12-04 10:30 | Outpatient (AMB) | payer OTHER, SELFPAY ==
--- NOTE | 2023-12-04 10:45 | MHC.PC.OV ---
Vital Signs 12/04/23 10:48 Height 6 ft Weight 214 lb BMI 29.0 BP 104/68 Blood Pressure Location Lt brachial Position Sitting Respiration 16 Pulse 58 Pulse Source Pulse Oximeter Pulse Oximetry (%) 97 Oxygen Delivery Method Room Air Intake Visit Reasons: 11/27/23 [facility] A-fib Intake Note: Emergency room follow up On Air Director Required: No Allergies No Known Allergies Allergy (Verified 12/04/23 10:46) Tobacco use date assessed: 02/06/23 Dental Screening Dental Screen Date: 03/13/23 HPI 11/27/23 [facility] A-fib HPI Details Pt is a 48-year-old male with a PMH significant for SVT with hx of ablation at 18 and recent diagnosis of paroxysmal AFib who presented to [facility] ED on 11/26/23 for evaluation of SOB, chest pain, palpitations, and elevated heart rate. Pt states he underwent ablation 30 years ago for SVT and since then has followed closely with cardiology (Dr. Miller). He states about 6 months ago began having 30-second episodes of palpitations and had loop recorder placed in June. Based off of recorder readings had another ablation scheduled for 01/27/2024. -Prior to presenting to [facility] he presented to [facility] ED on 11/24/2023 where he was found to be in AFib with RVR. Was given metoprolol IV and p.o. with good rate control and was discharged on Eliquis and an increase of metoprolol ER from 25 mg to 50 mg. -Once home patient found symptoms persisted and HR began to climb again. Patient continued to experience palpitations, racing heart, and SOB. He developed new chest tightness and a sharp left-sided chest pain which kept him up and made him present to [facility]. ED contacted Cardiology suggested admitting patient for likely cardioversion in the a.m. -In the ED pt was tachycardic up to 120s, vitals otherwise WNL. Labs were significant for mildly elevated BNP of 194, otherwise unremarkable. No leukocytosis. Stable H&H. No electrolyte abnormalities. Renal and hepatic function WNL. Troponin negative. CXR showed unremarkable examination. EKG demonstrated atrial fibrillation with RVR of 125 and PVCs, but no evidence of significant ST elevations or depressions. Pt was treated with calcium gluconate, metoprolol 5 mg IV, and started on diltiazem ip. Pt will be admitted to the hospital for treatment and further evaluation of symptomatic AFib with RVR. -Following cardioversion, sinus rhythm was restored. The treatment plan now includes initiating Flecainide 50 mg twice daily alongside ongoing Metoprolol and Eliquis therapy. Pt was discharged on 11/27/23. Today his blood pressure in the office is 104/68 with a pulse of 58. He sates that today he feels a little short of breath and like he can feel his heart skipping. He states that he just feels a little off from last night and today. He tells me it does not feel as bad as when he was in the hospital but when he left the hospital he felt fantastic. He states he can just noticed that something feels a little different. He denies any pain or tightness. Denies feeling dizzy, sweaty or nauseous. The shortness a breath he states it is very mild and not keeping him from doing anything. It is worse with exertion. States that he has not had a stress test. He does have an upcoming appointment with his pattern stamper next week on Friday. Denies any lower leg swelling. He has not missed any doses of his medication. He states that his symptoms are very mild and he is just reporting it because it was a very slight change. He does not want to go to the ER or hospital. [facility] Medical History New onset atrial fibrillation Right knee injury Palpitations Bronchitis Supraventricular tachycardia Surgical History History of cardiac radiofrequency ablation H/O right knee surgery Family History Mother High blood pressure Cardiovascular disease Father Cardiovascular disease Social History Household Members: Spouse Housing: House Alcohol intake: current Alcohol intake frequency: a few times a week Comment: Only Fall risk r/t dizziness Patient Tobacco Use Status: Never used Tobacco e-Cigarette/Vaping Use: Never Used Second Hand Smoke Exposure: No service: No Current occupational status: employed 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 Jozef Jewell, Neida Rosen, Darrian Pérez and colleagues, with an educational kay from [employer]. Physical exam (Primary Care) Vital Signs: Last Vital Signs Pulse 58 12/04/23 10:48 Resp 16 12/04/23 10:48 BP 104/68 12/04/23 10:48 Pulse Ox 97 12/04/23 10:48 Oxygen Delivery Method Room Air 12/04/23 10:48 BMI result Body Mass Index 29.0 Tobacco/Smoking Status: Tobacco use Status Tobacco use date assessed 02/06/23 12/04/23 10:45 Patient Tobacco Use Status Never used Tobacco 12/04/23 10:45 e-Cigarette/Vaping Use Never Used 12/04/23 10:45 Thrive Assessment: Date of Thrive Assessment Date Thrive assessed 11/27/23 12/04/23 10:45 Const Orientation/consciousness: patient oriented x3 HENMT Ears: hearing grossly normal bilaterally Neck Thyroid: Thyroid normal Lymphatic: no lymphadenopathy noted Resp Auscultation: clear to auscultation bilaterally Cardio Rate: regular rate Rhythm: regular rhythm Heart sounds: S1 normal heart sound present and S2 normal heart sound present GI Inspection: Yes normal to inspection Palpation (GI): Soft to palpation and Other GI palpation findings present (nontender, no cva tenderness) Auscultation: normoactive bowel sounds Rectal Exam - Male: Yes deferred Skin General skin exam: no rashes or lesions noted Neuro General: patient oriented x3, gait normal and no focal motor deficits Office Procedures EKG Details: EKG today in the office is sinus bradycardia at a rate of 59 beats per minute. Q-waves are present however unchanged from post cardioversion EKG. EKG interpreted by myself and Dr. Lux. His EKG overall looks similar well compared to previous study. [id number], Complete Results Reviewed Results Reviewed: Rafael Llanos Indication for Procedure: Symptomatic Afib Performed with Transesophageal Echo: Yes CHRIS findings (if CHRIS Performed): No LA or FRANDY clot History: [age] year gentleman with palpitations and new onset atrial fibrillation with rapid ventricular response. He is here for CHRIS cardioversion. Consent: Verbal and Written consent was obtained from the patient before starting. The patient was made aware of the risk of stroke, failure, skin burn as well as other arrhythmia. Procedure: After consent obtained, defib pads were attached and the patient was sedated by the anesthesia team. Once adequate sedation achieved, single synchronized shock of 200 joules was given to the patient. He converted to sinus rhythm. He was left with anesthesia for recovery in stable condition. Complications: None. Impression: Successful cardioversion. Recommendations: Continue apixaban 5 mg twice a day. Continue Toprol-XL. Adding flecainide 50 mg twice a day. Laboratory Tests 11/26/23 11/26/23 11/27/23 16:56 16:59 04:22 WBC 10.6 RBC 5.54 Hgb 16.7 Hct 46.2 Plt Count 335 Sodium 140 Potassium 4.3 Chloride 106 Carbon Dioxide 24 Anion Gap 14 BUN 21 H Creatinine 0.99 Estim Creat Clear Calc 99.0 Estimated GFR > 60 Random Glucose 90 Calcium 9.4 Troponin I High Sens < 2.7 B-Natriuretic Peptide 194 H Total Protein 7.7 Albumin 4.4 Lipase 26 Assessment and Plan Assessment & Plan (1) Hospital discharge follow-up: Code(s): Z09 - Encounter for follow-up examination after completed treatment for conditions other than malignant neoplasm Plan: Medications reconciled. Labs, imaging from hospitalization reviewed. (2) Palpitations: Code(s): R00.2 - Palpitations Plan: Currently in sinus rhythm. (3) New onset atrial fibrillation: Code(s): I48.91 - Unspecified atrial fibrillation Plan: Overall has been tolerating the flecainide, metoprolol and Eliquis. Has follow up arranged with pattern stamper on Friday and we will be seeing EP in January. (4) SOB (shortness of breath): Code(s): R06.02 - Shortness of breath Plan: Labs ordered today including a stat troponin. Did discuss with patient that if he worsens at all he needs to go to the ER to be evaluated. We did discuss going to the hospital today for his symptoms but he does not feel feel that he warrants this. His EKG was reviewed today in the office with him. We will follow up pending labs. Sooner if anything worsens or changes. Patient understands and agrees with this plan. Orders: Orders Comprehensive Met. Panel Today I48.91 - Unspecified atrial fibrillation, R00.2 - Palpitations, R06.02 - Shortness of breath Troponin-I High Sensitivity Today I48.91 - Unspecified atrial fibrillation, R00.2 - Palpitations, R06.02 - Shortness of breath Complete Blood Count Auto Diff Today I48.91 - Unspecified atrial fibrillation, R00.2 - Palpitations, R06.02 - Shortness of breath TSH reflex Free T4 Today I48.91 - Unspecified atrial fibrillation, R00.2 - Palpitations, R06.02 - Shortness of breath Coding Level of Care Code TCM High MDM <= 7 Days Complex EM visit Add On G2211 Diagnoses Hospital discharge follow-up Z09 Palpitations R00.2 New onset atrial fibrillation I48.91 SOB (shortness of breath) R06.02 CPT Codes EKG - CPT: 22447-[id number], Complete ([id number]) Time Spent (min) 78
[2023-12-04 10:48] VITALS: BP 104/68; PULSE 58; RESP 16; O2SAT 97; BMI 29.0
== END 2023-12-04 11:23 | disposition home or self-care (01) ==
PROVIDERS: PCP Nurse Practitioner Family; Visit Provider Physician Assistant
DX: R00.2 Palpitations (principal); I48.91 Unspecified atrial fibrillation; R06.02 Shortness of breath; Z09 Encounter for follow-up examination after completed treatment for conditions other than malignant neoplasm
CPT/HCPCS: 93000; 99215; 99417; G2211

== ENCOUNTER 2023-12-04 11:58 | Outpatient (REF) | payer OTHER, SELFPAY ==
[2023-12-04 14:40] LABS: MANUAL DIFF FLAG NO
[2023-12-04 14:53] LABS: Basophils Absolute Auto 0.1 X10*3/uL (0.0-0.2); Basophils Percent Auto 0.7 % (0-2); Eosinophils Absolute Auto 0.2 X10*3/uL (0.0-0.4); Eosinophils Percent Auto 2.2 % (0-4); Hematocrit 43.9 % (42.0-52.0); Hemoglobin 15.3 g/dl (14.0-18.0); Imm Gran Abs Auto 0.06 X10*3/uL (0.00-0.03); Imm Gran Pct Auto 0.8 % (0.0-0.4); Lymphocytes Absolute Auto 2.4 X10*3/uL (1.2-4.9); Lymphocytes Percent Auto 31.2 % (20-40); Mean Corpuscular HGB Conc 34.9 g/dl (31.0-36.0); Mean Corpuscular Hemoglobin 29.9 pg (27.0-33.0); Mean Corpuscular Volume 85.7 fL (80.0-98.0); Mean Platelet Volume 9.8 fL (9.4-12.4); Monocytes Absolute Auto 0.4 X10*3/uL (0.1-1.2); Monocytes Percent Auto 5.2 % (2-11); NRBC Pct Auto 0.3 /100WBC (0.0-0.2); Neutrophils Absolute Auto 4.6 x10*3/uL (2.0-8.3); Neutrophils Percent Auto 59.9 % (45-73); Platelet Count 311 X10*3/uL (160-400); Red Blood Count 5.12 X10*6/uL (4.60-5.80); Red Cell Distribution Width 12.2 % (11.0-16.0); White Blood Count 7.6 X10*3/uL (4.8-10.8)
[2023-12-04 15:29] LABS: Troponin-I High Sensitivity < 2.7 ng/L (<3.5-35.0)
[2023-12-04 15:38] LABS: Alanine Aminotransferase 25 U/L (0-40); Albumin Level 4.3 g/dL (3.5-5.0); Alkaline Phosphatase 52 U/L (39-117); Anion Gap 13 (12-20); Aspartate Amino Transferase 16 U/L (5-37); Bilirubin Total 0.4 mg/dL (0.0-1.0); Blood Urea Nitrogen 14 mg/dL (9-16); Calcium 9.2 mg/dL (8.4-10.2); Carbon Dioxide 26 mmol/L (22-29); Chloride 106 mmol/L (96-108); Estimated Glomerular Filt Rate > 60; Glucose Random 85 mg/dL (60-115); Potassium 4.1 mmol/L (3.3-5.1); Sodium 141 mmol/L (135-145)
[2023-12-04 15:45] LABS: TSH reflex Free T4 1.29 uIU/mL (0.32-4.0)
== END 2023-12-04 11:59 | disposition home or self-care (01) ==
LOC: HO.WFDLDS 11:58
PROVIDERS: Visit Provider Physician Assistant
DX: R00.2 Palpitations (principal); R06.02 Shortness of breath; I48.91 Unspecified atrial fibrillation
CPT/HCPCS: 36415; 80053; 84443; 84484; 85025

== ENCOUNTER 2023-12-10 14:04 | Outpatient (AMB) | payer OTHER, SELFPAY ==
--- NOTE | 2023-12-10 14:05 | A.OFFVIS_ITS ---
Vital Signs 12/10/23 14:06 Height 6 ft Weight 215 lb 9.793 oz BMI 29.2 BP 130/64 Blood Pressure Location Lt brachial Position Sitting Pulse 69 Intake Visit Reasons: follow-up post cvr with ekg Geospatial Image Analyst Required: No Accompanied by: Self / Same As Patient Allergies No Known Allergies Allergy (Verified 12/04/23 10:46) Medication List - Last Reconciled 12/10/23 by Rafa Miller MD apixaban (Eliquis) 5 mg PO BID flecainide 50 mg PO BID metoprolol succinate ER 50 mg PO DAILY HPI Comments Details: Gui returns for follow-up regarding arrhythmias. To recall, he underwent SVT ablation around 1993. More recently, he has been having palpitations for the last few months or so. Then thought to have recurrent SVT. He wanted to go for another ablation as opposed medications and hence seen by EP and he was supposed to actually get SVT ablation in January. In the interim, was again having palpitations and this time he was in atrial fibrillation with rapid rate. Was admitted to the hospital and underwent CHRIS/cardioversion. Now back in normal sinus rhythm. He is on flecainide. Also on anticoagulation. No other cardiac issues like coronary disease or myocardial infarction or cardiomyopathy. [facility] Medical History (Updated 12/10/23 @ 14:08 by Pinky Fry CMA) History of cardioversion New onset atrial fibrillation Right knee injury Palpitations Bronchitis Supraventricular tachycardia Surgical History History of cardiac radiofrequency ablation H/O right knee surgery Family History Mother High blood pressure Cardiovascular disease Father Cardiovascular disease Social History Household Members: Spouse Housing: House Alcohol intake: current Alcohol intake frequency: a few times a week Comment: Only Fall risk r/t dizziness Patient Tobacco Use Status: Never used Tobacco e-Cigarette/Vaping Use: Never Used Second Hand Smoke Exposure: No service: No Current occupational status: employed 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 Cognitive needs: No Hearing needs: No Vision needs: No Review of Systems Const Denies chills, Denies fatigue, Denies fever(s), Denies frequent falls, Denies weakness, Denies weight gain and Denies weight loss ENT Denies dizziness Card Denies chest pain, Denies leg edema, Denies lightheadedness, Denies palpitations, Denies dyspnea and Denies dyspnea on exertion Resp Denies cough, Denies dyspnea and Denies dyspnea on exertion GI Denies hematochezia Musc Denies abnormal gait, Denies muscle weakness, Denies numbness, Denies radiating pain into limb and Denies tingling Neuro Denies abnormal gait, Denies dizziness, Denies frequent falls, Denies numbness, Denies tingling and Denies weakness Endo Denies fatigue and Denies palpitations Physical Exam Vital Signs: Last Vital Signs Pulse 69 12/10/23 14:06 BP 130/64 12/10/23 14:06 BMI result Body Mass Index 29.2 Const General: comfortable and no acute distress Orientation/consciousness: patient oriented x3 HEENT Other: Unremarkable Head: Yes normal to inspection Neck Neck: Yes normal visual inspection Chest Chest palpation & inspection: normal inspection of the chest Resp Auscultation: clear to auscultation bilaterally Cardio Palpation: normal PMI Heart sounds: S1 normal heart sound present, S2 normal heart sound present, no gallops, no murmurs and no rubs GI Palpation (GI): Soft to palpation Back/Spine/Pelvis Other: unremarkable Skin General skin exam: no rashes or lesions noted Neuro General: patient oriented x3 Extrem General: Yes normal to inspection Psych Mental Status: mental status grossly normal Office Procedures EKG Details: EKG with sinus rhythm at 69/Min; no significant ST-T changes and otherwise unremarkable. [place] [id number], Complete Assessment & Plan Assessment & Plan (1) Supraventricular tachycardia: Code(s): I47.1 - Supraventricular tachycardia Category: Medical (2) Atrial fibrillation with RVR: Code(s): I48.91 - Unspecified atrial fibrillation Category: Medical (3) Implantable loop recorder present: Code(s): Z95.818 - Presence of other cardiac implants and grafts Category: Medical Plan Echocardiogram with LVEF of 56%. No wall motion abnormalities. Mild aortic valve calcification but otherwise unremarkable. In the transesophageal echocardiogram, normal LVEF, 55-60%. No evidence of thrombus in the left atrial appendage. Implantable loop recording in the past had shown narrow complex tachycardia which could indicate SVT. Per recent EKG and hospitalization, he also had atrial fibrillation with rapid ventricular rate. May continue beta-blockers and flecainide for the time being. Also on anticoagulation. Informed EP of the new developments- will need planning for both SVT as well as atrial fibrillation ablation. Also inform patient to discuss with EP. Follow-up after the above. Coding Level of Care Code Est Pt Level 4 (45271) Diagnoses Supraventricular tachycardia I47.1 Atrial fibrillation with RVR I48.91 Implantable loop recorder present Z95.818 CPT Codes EKG - CPT: 89271-Akrmtslvpgjgfqbjh, Complete ([id number])
[2023-12-10 14:06] VITALS: BP 130/64; PULSE 69; BMI 29.2
== END 2023-12-10 14:24 | disposition home or self-care (01) ==
LOC: HO.HCS 14:04
PROVIDERS: PCP Nurse Practitioner Family; Visit Provider Internal Medicine
DX: I47.10 Supraventricular tachycardia, unspecified (principal); I48.91 Unspecified atrial fibrillation; Z95.818 Presence of other cardiac implants and grafts
CPT/HCPCS: 93010; 99214

== ENCOUNTER → 2023-12-10 14:04 | Outpatient (BNVA) | payer OTHER, SELFPAY | PROVIDERS: PCP Nurse Practitioner Family; Visit Provider Internal Medicine | DX: I48.91 Unspecified atrial fibrillation (principal); I47.10 Supraventricular tachycardia, unspecified; Z95.818 Presence of other cardiac implants and grafts; Z98.890 Other specified postprocedural states | CPT/HCPCS: 93005; 99212 ==

== ENCOUNTER → 2023-12-17 23:59 | Outpatient (BNV) | payer OTHER, SELFPAY ==
--- NOTE | 2024-01-15 12:34 | MHC.OFFVIS ---
Intake Visit Reasons: Remote ILR- [employer] Allergies No Known Allergies Allergy (Verified 12/04/23 10:46) [facility] Medical History (Updated 12/10/23 @ 14:08 by Pinky Fry CMA) History of cardioversion New onset atrial fibrillation Right knee injury Palpitations Bronchitis Supraventricular tachycardia Surgical History History of cardiac radiofrequency ablation H/O right knee surgery Family History Mother High blood pressure Cardiovascular disease Father Cardiovascular disease Social History Household Members: Spouse Housing: House Alcohol intake: current Alcohol intake frequency: a few times a week Comment: Only Fall risk r/t dizziness Patient Tobacco Use Status: Never used Tobacco e-Cigarette/Vaping Use: Never Used Second Hand Smoke Exposure: No service: No Current occupational status: employed 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
--- NOTE | 2024-01-15 13:48 | MHC.OFFVIS ---
Intake Visit Reasons: Remote ILR- [employer] Allergies No Known Allergies Allergy (Verified 12/04/23 10:46) [facility] Medical History (Updated 12/10/23 @ 14:08 by Pinky Fry CMA) History of cardioversion New onset atrial fibrillation Right knee injury Palpitations Bronchitis Supraventricular tachycardia Surgical History History of cardiac radiofrequency ablation H/O right knee surgery Family History Mother High blood pressure Cardiovascular disease Father Cardiovascular disease Social History Household Members: Spouse Housing: House Alcohol intake: current Alcohol intake frequency: a few times a week Comment: Only Fall risk r/t dizziness Patient Tobacco Use Status: Never used Tobacco e-Cigarette/Vaping Use: Never Used Second Hand Smoke Exposure: No service: No Current occupational status: employed 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 Duration 77 Hrs. Median V rate 113/min. [id number] Cardiac Interrogation, subcut cardiac rhythm monitor Procedure code (CPT) selection complete Assessment & Plan Assessment & Plan (1) Atrial fibrillation with RVR: Code(s): I48.91 - Unspecified atrial fibrillation Category: Medical Plan x Coding Level of Care Code Procedure Only Diagnoses Atrial fibrillation with RVR I48.91 CPT Codes Cardiac Device Check - Cardiac Device 16: [id number] Cardiac Interrogation, subcut cardiac rhythm monitor ([id number])
== END ==
PROVIDERS: PCP Nurse Practitioner Family; Visit Provider Internal Medicine
DX: I48.91 Unspecified atrial fibrillation (principal); Z95.818 Presence of other cardiac implants and grafts
CPT/HCPCS: 93298

== ENCOUNTER 2024-01-15 14:54 | Outpatient (AMB) | payer OTHER, SELFPAY ==
--- NOTE | 2024-01-15 15:09 | MHC.OFFVIS ---
Vital Signs 01/15/24 15:10 Height 6 ft Weight 220 lb 7.396 oz BMI 29.9 BP 110/60 Blood Pressure Location Lt brachial Position Sitting Pulse 69 Pulse Source Monitor Intake Visit Reasons: follow up per HS Hearth Feeder Required: No Accompanied by: Self / Same As Patient Allergies No Known Allergies Allergy (Verified 12/04/23 10:46) Medication List - Last Reconciled 01/15/24 by Rafa Miller MD apixaban (Eliquis) 5 mg PO BID flecainide 50 mg PO BID metoprolol succinate ER 50 mg PO DAILY HPI Comments Details: Gui returns for follow-up regarding arrhythmias. To recall, he underwent SVT ablation around 1993. More recently, he has been having palpitations for the last few months or so. Then thought to have recurrent SVT. He wanted to go for another ablation as opposed medications and hence seen by EP and he was supposed to actually get SVT ablation in January. In the interim, was again having palpitations and this time he was in atrial fibrillation with rapid rate. Was admitted to the hospital and underwent CHRIS/cardioversion. Now back in normal sinus rhythm. He is on flecainide. Also on anticoagulation. Few days ago, the implantable loop recorder showed what appeared to be polymorphic ventricular tachycardia. Hence he is being seen. He states he still gets some palpitations off and on. However, sometimes it only correlates with sinus rhythm on the INR. No clear-cut exertional anginal-type patterns. [facility] Medical History (Updated 01/15/24 @ 15:48 by Rafa Miller MD) History of cardioversion New onset atrial fibrillation Right knee injury Palpitations Bronchitis Supraventricular tachycardia Surgical History History of cardiac radiofrequency ablation H/O right knee surgery Family History Mother High blood pressure Cardiovascular disease Father Cardiovascular disease Social History Household Members: Spouse Housing: House Alcohol intake: current Alcohol intake frequency: a few times a week Comment: Only Fall risk r/t dizziness Patient Tobacco Use Status: Never used Tobacco e-Cigarette/Vaping Use: Never Used Second Hand Smoke Exposure: No service: No Current occupational status: employed 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 Cognitive needs: No Hearing needs: No Vision needs: No Review of Systems Const Denies chills, Denies fatigue, Denies fever(s), Denies frequent falls, Denies weakness, Denies weight gain and Denies weight loss ENT Denies dizziness Card Reports chest pain, Denies leg edema, Denies lightheadedness, Reports palpitations, Denies dyspnea and Denies dyspnea on exertion Resp Denies cough, Denies dyspnea and Denies dyspnea on exertion GI Denies hematochezia Musc Denies abnormal gait, Denies muscle weakness, Denies numbness, Denies radiating pain into limb and Denies tingling Neuro Denies abnormal gait, Denies dizziness, Denies frequent falls, Denies numbness, Denies tingling and Denies weakness Endo Denies fatigue and Reports palpitations Physical Exam Vital Signs: Last Vital Signs Pulse 69 01/15/24 15:10 BP 110/60 01/15/24 15:10 BMI result Body Mass Index 29.9 Const General: comfortable and no acute distress Orientation/consciousness: patient oriented x3 HEENT Other: Unremarkable Head: Yes normal to inspection Neck Neck: Yes normal visual inspection Chest Chest palpation & inspection: normal inspection of the chest Resp Auscultation: clear to auscultation bilaterally Cardio Palpation: normal PMI Heart sounds: S1 normal heart sound present, S2 normal heart sound present, no gallops, no murmurs and no rubs GI Palpation (GI): Soft to palpation Back/Spine/Pelvis Other: unremarkable Skin General skin exam: no rashes or lesions noted Neuro General: patient oriented x3 Extrem General: Yes normal to inspection Psych Mental Status: mental status grossly normal Office Procedures EKG Details: EKG with sinus rhythm at 69/Min; no significant ST-T changes and otherwise unremarkable. [place]. [id number], Complete Assessment & Plan Assessment & Plan (1) Supraventricular tachycardia: Code(s): I47.1 - Supraventricular tachycardia Category: Medical (2) Atrial fibrillation with RVR: Code(s): I48.91 - Unspecified atrial fibrillation Category: Medical (3) Ventricular tachycardia: Code(s): I47.20 - Ventricular tachycardia, unspecified Category: Medical (4) Implantable loop recorder present: Code(s): Z95.818 - Presence of other cardiac implants and grafts Category: Medical Plan Cardiac studies reviewed. Echocardiogram with LVEF of 56%. No wall motion abnormalities. Mild aortic valve calcification but otherwise unremarkable. In the transesophageal echocardiogram, normal LVEF, 55-60%. No evidence of thrombus in the left atrial appendage. Implantable loop recording in the past had shown narrow complex tachycardia which could indicate SVT. Per recent EKG and hospitalization, he also had atrial fibrillation with rapid ventricular rate. In the implantable loop recorder transmission from 01/10, there is suggestion of polymorphic VT. Discussed with Dr. Rodríguez from EP. Possible proarrhythmic effect from flecainide and advised to stop. Advised patient to continue beta-blockers and if he feels more palpitations, probably take an extra Metoprolol 25 mg tablet. Continue anticoagulation otherwise for the atrial fibrillation. He is scheduled for SVT/atrial fibrillation ablation in January. However, due to the ventricular tachycardia episode, plan would be to get coronary assessment as well with an angiogram before the ablation. 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
[2024-01-15 15:10] VITALS: BP 110/60; PULSE 69; BMI 29.9
== END 2024-01-15 15:39 | disposition home or self-care (01) ==
PROVIDERS: PCP Nurse Practitioner Family; Visit Provider Internal Medicine
DX: I48.91 Unspecified atrial fibrillation (principal); I47.20 Ventricular tachycardia, unspecified; I47.10 Supraventricular tachycardia, unspecified; Z95.818 Presence of other cardiac implants and grafts
CPT/HCPCS: 93010; 99214

== ENCOUNTER 2024-01-15 14:54 | Outpatient (REF) | payer OTHER, SELFPAY ==
[2024-01-15 18:49] LABS: Hematocrit 42.8 % (42.0-52.0); Hemoglobin 15.3 g/dl (14.0-18.0); Mean Corpuscular HGB Conc 35.7 g/dl (31.0-36.0); Mean Corpuscular Hemoglobin 30.5 pg (27.0-33.0); Mean Corpuscular Volume 85.3 fL (80.0-98.0); Mean Platelet Volume 10.1 fL (9.4-12.4); Platelet Count 323 X10*3/uL (160-400); Red Blood Count 5.02 X10*6/uL (4.60-5.80); Red Cell Distribution Width 12.6 % (11.0-16.0); White Blood Count 7.4 X10*3/uL (4.8-10.8)
[2024-01-15 18:50] LABS: Anion Gap 14 (12-20); Blood Urea Nitrogen 17 mg/dL (9-16); Calcium 9.1 mg/dL (8.4-10.2); Carbon Dioxide 27 mmol/L (22-29); Chloride 105 mmol/L (96-108); Estimated Glomerular Filt Rate > 60; Glucose Random 66 mg/dL (60-115); Sodium 142 mmol/L (135-145)
== END 2024-01-15 14:55 | disposition home or self-care (01) ==
LOC: HO.LAB 14:54
PROVIDERS: PCP Nurse Practitioner Family; Visit Provider Internal Medicine
DX: I47.10 Supraventricular tachycardia, unspecified (principal); I48.91 Unspecified atrial fibrillation; Z95.818 Presence of other cardiac implants and grafts; I25.10 Atherosclerotic heart disease of native coronary artery without angina pectoris; Z79.899 Other long term (current) drug therapy
CPT/HCPCS: 36415; 80048; 85027; 93005; 99212

== ENCOUNTER → 2024-01-20 23:59 | Outpatient (BNV) | payer OTHER, SELFPAY | PROVIDERS: PCP Nurse Practitioner Family; Visit Provider Internal Medicine Cardiovascular Disease | DX: I47.20 Ventricular tachycardia, unspecified (principal) | CPT/HCPCS: 93458; 99152 ==

== ENCOUNTER 2024-02-10 12:52 | Outpatient (AMB) | payer OTHER, SELFPAY ==
[2024-02-10 12:53] VITALS: BP 116/64; PULSE 87; BMI 29.5
--- NOTE | 2024-02-10 12:53 | MHC.OFFVIS ---
Vital Signs 02/10/24 12:53 Height 6 ft Weight 217 lb 13.067 oz BMI 29.5 BP 116/64 Blood Pressure Location Lt brachial Position Sitting Pulse 87 Pulse Source Pulse Oximeter Intake Visit Reasons: follow up/ Cardiac cath Mail Order Sorter Required: No Accompanied by: Self / Same As Patient Allergies No Known Allergies Allergy (Verified 12/04/23 10:46) Medication List - Last Reconciled 02/10/24 by Rafa Miller MD apixaban (Eliquis) 5 mg PO BID 90 days metoprolol succinate ER 75 mg PO DAILY HPI Comments Details: Gui returns for follow-up regarding arrhythmias. To recall, he underwent SVT ablation around 1993. Recently, he had palpitations and was diagnosed to have both SVT as well as atrial fibrillation at different times. With regard to atrial fibrillation, he underwent CHRIS/cardioversion. Then started on flecainide but implantable loop recorder showed evidence of torsade and that was stopped. He was left only on beta-blockers. Recently, he underwent ablation of both SVT as well as atrial fibrillation. Since the procedure, some vague chest tightness but otherwise feels fine for the most part. Able to carry on his activities without any restrictions. [facility] Medical History (Updated 01/15/24 @ 15:48 by Rafa Miller MD) History of cardioversion New onset atrial fibrillation Right knee injury Palpitations Bronchitis Supraventricular tachycardia Surgical History History of cardiac radiofrequency ablation H/O right knee surgery Family History Mother High blood pressure Cardiovascular disease Father Cardiovascular disease Social History Household Members: Spouse Housing: House Alcohol intake: current Alcohol intake frequency: a few times a week Comment: Only Fall risk r/t dizziness Patient Tobacco Use Status: Never used Tobacco e-Cigarette/Vaping Use: Never Used Second Hand Smoke Exposure: No service: No Current occupational status: employed 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 [employer] Cognitive needs: No Hearing needs: No Vision needs: No Review of Systems Const Denies chills, Denies fatigue, Denies fever(s), Denies weight gain and Denies weight loss ENT Denies dizziness Card Denies chest pain, Denies leg edema, Denies lightheadedness, Denies palpitations, Reports dyspnea, Denies dyspnea on exertion, Denies orthopnea and Denies other Resp Denies cough, Reports dyspnea and Denies dyspnea on exertion GI Denies hematochezia and Denies change in stool character Musc Denies abnormal gait, Denies muscle weakness, Denies numbness, Denies radiating pain into limb and Denies tingling Neuro Denies abnormal gait, Denies dizziness, Denies numbness and Denies tingling Endo Denies fatigue and Denies palpitations Physical Exam Vital Signs: Last Vital Signs Pulse 87 02/10/24 12:53 BP 116/64 02/10/24 12:53 BMI result Body Mass Index 29.5 Const General: comfortable and no acute distress Orientation/consciousness: patient oriented x3 HEENT Other: Unremarkable Head: Yes normal to inspection Neck Neck: Yes normal visual inspection Chest Chest palpation & inspection: normal inspection of the chest Resp Auscultation: clear to auscultation bilaterally Cardio Palpation: normal PMI Heart sounds: S1 normal heart sound present, S2 normal heart sound present, no gallops, no murmurs and no rubs GI Palpation (GI): Soft to palpation Back/Spine/Pelvis Other: unremarkable Skin General skin exam: no rashes or lesions noted Neuro General: patient oriented x3 Extrem General: Yes normal to inspection Psych Mental Status: mental status grossly normal Office Procedures EKG Details: EKG with sinus rhythm at 81/Min; no significant ST-T changes and otherwise [place]remark[place] [id number], Complete Assessment & Plan Assessment & Plan (1) Supraventricular tachycardia: Code(s): I47.1 - Supraventricular tachycardia Category: Medical (2) Atrial fibrillation with RVR: Code(s): I48.91 - Unspecified atrial fibrillation Category: Medical (3) Ventricular tachycardia: Code(s): I47.20 - Ventricular tachycardia, unspecified Category: Medical (4) Implantable loop recorder present: Code(s): Z95.818 - Presence of other cardiac implants and grafts Category: Medical Plan Cardiac studies reviewed. Echocardiogram with LVEF of 56%. No wall motion abnormalities. Mild aortic valve calcification but otherwise unremarkable. In the transesophageal echocardiogram, normal LVEF, 55-60%. No evidence of thrombus in the left atrial appendage. Implantable loop recording in the past had shown narrow complex tachycardia which could indicate SVT. Per recent EKG and hospitalization, he also had atrial fibrillation with rapid ventricular rate. In the implantable loop recorder transmission from 01/10, there is suggestion of polymorphic VT, after which the flecainide was stopped. Cardiac catheterization with normal coronaries. He is now status post EP study; ablation for left lateral accessory pathway; pulmonary vein isolation for atrial fibrillation in follow-up EP study noninducible for any arrhythmias. With regard to the beta-blockers, he is still taking metoprolol 75 mg daily. Advised him to cut back to 50 mg daily for a few days and then 25 mg for a few days and then stop it completely. If any issues like palpitations, he will contact us. With regard to anticoagulation, we can use for 3 months from the time of ablation. Then stop. Discussed with Dr. Rodríguez from EP who agrees with the above plan. Discussed with significant other. Coding Level of Care Code Est Pt Level 4 (78956) Diagnoses Supraventricular tachycardia I47.1 Atrial fibrillation with RVR I48.91 Ventricular tachycardia I47.20 Implantable loop recorder present Z95.818 CPT Codes EKG - CPT: 59155-Cyohexcruetfpublr, Complete ([id number])
== END 2024-02-10 13:27 | disposition home or self-care (01) ==
PROVIDERS: PCP Nurse Practitioner Family; Visit Provider Internal Medicine
DX: I47.10 Supraventricular tachycardia, unspecified (principal); I48.91 Unspecified atrial fibrillation; I47.20 Ventricular tachycardia, unspecified; Z95.818 Presence of other cardiac implants and grafts
CPT/HCPCS: 93010; 99214

== ENCOUNTER → 2024-02-10 12:52 | Outpatient (BNVA) | payer OTHER, SELFPAY | PROVIDERS: PCP Nurse Practitioner Family; Visit Provider Internal Medicine | DX: I47.10 Supraventricular tachycardia, unspecified (principal); I48.91 Unspecified atrial fibrillation; I47.20 Ventricular tachycardia, unspecified; Z95.818 Presence of other cardiac implants and grafts | CPT/HCPCS: 93005; 99212 ==

== ENCOUNTER → 2024-02-15 23:59 | Outpatient (BNV) | payer OTHER, SELFPAY ==
--- NOTE | 2024-03-15 19:02 | A.OFFVIS_ITS ---
Intake Visit Reasons: Remote device check- [employer] Allergies No Known Allergies Allergy (Verified 12/04/23 10:46) [facility] Medical History (Updated 01/15/24 @ 15:48 by Rafa Miller MD) History of cardioversion New onset atrial fibrillation Right knee injury Palpitations Bronchitis Supraventricular tachycardia Surgical History History of cardiac radiofrequency ablation H/O right knee surgery Family History Mother High blood pressure Cardiovascular disease Father Cardiovascular disease Social History Household Members: Spouse Housing: House Alcohol intake: current Alcohol intake frequency: a few times a week Comment: Only Fall risk r/t dizziness Patient Tobacco Use Status: Never used Tobacco e-Cigarette/Vaping Use: Never Used Second Hand Smoke Exposure: No service: No Current occupational status: employed 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 [id number] Cardiac Interrogation, subcut cardiac rhythm monitor Procedure code (CPT) selection complete Assessment & Plan Assessment & Plan (1) Atrial fibrillation with RVR: Code(s): I48.91 - Unspecified atrial fibrillation Category: Medical Plan x Coding Level of Care Code Procedure Only Diagnoses Atrial fibrillation with RVR I48.91 CPT Codes Cardiac Device Check - Cardiac Device 16: [id number] Cardiac Interrogation, subcut cardiac rhythm monitor ([id number])
== END ==
PROVIDERS: PCP Nurse Practitioner Family; Visit Provider Internal Medicine
DX: I48.91 Unspecified atrial fibrillation (principal); Z95.818 Presence of other cardiac implants and grafts
CPT/HCPCS: 93298

== ENCOUNTER → 2024-03-16 23:59 | Outpatient (BNV) | payer OTHER, SELFPAY ==
--- NOTE | 2024-03-18 09:56 | A.OFFVIS_ITS ---
Intake Visit Reasons: Remote ILR check- [employer] Allergies No Known Allergies Allergy (Verified 12/04/23 10:46) [facility] Medical History (Updated 01/15/24 @ 15:48 by Rafa Miller MD) History of cardioversion New onset atrial fibrillation Right knee injury Palpitations Bronchitis Supraventricular tachycardia Surgical History History of cardiac radiofrequency ablation H/O right knee surgery Family History Mother High blood pressure Cardiovascular disease Father Cardiovascular disease Social History Household Members: Spouse Housing: House Alcohol intake: current Alcohol intake frequency: a few times a week Comment: Only Fall risk r/t dizziness Patient Tobacco Use Status: Never used Tobacco e-Cigarette/Vaping Use: Never Used Second Hand Smoke Exposure: No service: No Current occupational status: employed 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 No pauses. PVCs 0.1%. [id number] Cardiac Interrogation, subcut cardiac rhythm monitor Procedure code (CPT) selection complete Assessment & Plan Assessment & Plan (1) Supraventricular tachycardia: Code(s): I47.1 - Supraventricular tachycardia Category: Medical Plan x Coding Level of Care Code Procedure Only Diagnoses Supraventricular tachycardia I47.1 CPT Codes Cardiac Device Check - Cardiac Device 16: [id number] Cardiac Interrogation, subcut cardiac rhythm monitor ([id number])
== END ==
PROVIDERS: PCP Nurse Practitioner Family; Visit Provider Internal Medicine
DX: I47.10 Supraventricular tachycardia, unspecified (principal); Z95.818 Presence of other cardiac implants and grafts
CPT/HCPCS: 93298

== ENCOUNTER 2024-03-23 07:59 | Outpatient (AMB) | payer OTHER, SELFPAY ==
--- NOTE | 2024-03-23 08:01 | MHC.PC.OV ---
Vital Signs 03/23/24 08:07 Height 6 ft Weight 228 lb 2 oz BMI 30.9 BP 128/78 Blood Pressure Location Rt brachial Position Sitting Respiration 16 Pulse 80 Pulse Source Pulse Oximeter Temp 97.6 F Temp Source Oral Pulse Oximetry (%) 99 Oxygen Delivery Method Room Air Intake Visit Reasons: CPE- NEEDS PHQ9 Intake Note: patient here for CPE Exercise Equipment Repair Technician Required: No Allergies No Known Allergies Allergy (Verified 03/23/24 08:19) Medication List - Last Reconciled 03/23/24 by Ravindra Parker CNP apixaban (Eliquis) 5 mg PO BID 90 days Tobacco use date assessed: 03/23/24 Dental Screening Dental Screen Date: 03/23/24 Did you have a dental visit in the last 12 months?: No Did you have a dental problem in the last 6 months where you did not have access to dental care?: No Was dental information given to patient?: Patient has dentist HPI HPI Comments History of Present Illness Details 49-year-old male presents for an extended physical exam He has past medical history significant for SVT with history of ablation at age 18, proximal AFib, and hypercholesterolemia He is on Eliquis 5 mg twice daily which he admits to taking as prescribed without adverse reactions He admits to making healthy dietary changes and sleeping well. He has not been exercising He offers no complaints and denies acute symptoms at this time Nonsmoker. Drinks 2 drinks (whiskey or beer) on Fridays and Saturdays. No recreational drug use He has never had a colonoscopy He has never been vaccinated for shingles He notes that his last tetanus vaccine was over 10 years ago He is followed by [facility] cardiology [facility] Medical History (Updated 03/23/24 @ 08:39 by Ravindra Parker CNP) History of cardioversion New onset atrial fibrillation Right knee injury Palpitations Bronchitis Supraventricular tachycardia Surgical History History of cardiac radiofrequency ablation H/O right knee surgery Family History (Updated 03/23/24 @ 08:06 by Nancy Lindo) Mother High blood pressure Cardiovascular disease Father Cardiovascular disease Social History Household Members: Spouse Housing: House Alcohol intake: current Alcohol intake frequency: a few times a week Comment: Only Fall risk r/t dizziness Patient Tobacco Use Status: Never used Tobacco e-Cigarette/Vaping Use: Never Used Second Hand Smoke Exposure: No service: No Current occupational status: employed 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 1. Little interest or pleasure in doing things: not at all 2. Feeling down, depressed, or hopeless: not at all 3. Trouble falling or staying asleep, or sleeping too much: not at all 4. Feeling tired or having little energy: more than half the days 5. Poor appetite or overeating: not at all 6. Feeling bad about yourself - or that you are a failure or have let yourself or your family down: not at all 7. Trouble concentrating on things, such as reading the newspaper or watching television: several days 8. Moving or speaking so slowly that other people could have noticed. Or the opposite - being so fidgety or restless that you have been moving around a lot more than usual: not at all 9. Thoughts that you would be better off or of hurting yourself in some way: not at all Total score: 3 Depression Screening Interpretation: Negative Depression Screening Done: Yes 77327 - PHQ-9 Billing: Yes Source: Developed by Drs. Jozef Jewell, Neida Rosen, Darrian Pérez and colleagues, with an educational kay from [employer]. Thrive Questionnaire Date Thrive assessed: 03/23/24 I am a: Patient What is your living situation today?: I have a steady place to live Within the past 12 months, did the food you bought not last and you didn't have the money to get more?: Never true Within the past 12 months, did you worry whether your food would run out before you got money to buy more?: Never true Do you have trouble paying for medicines?: No Do you have trouble getting transportation to medical appointments?: No Do you have trouble paying your heating and electricity bill?: No Do you have trouble taking care of your child, family member or friend?: No Do you have trouble with day-to-day activities such as bathing, preparing meals, shopping, managing finances, etc.?: No Are you currently unemployed and looking for a job?: No Are you interested in more education?: No Please select the resources that you would like help with: None Currently or been in a relationship where the following occur: No concerns reported THRIVE Score: 0 AUDIT C Alcohol Use Questionnaire (AUDIT-C) 1. How often do you have a drink containing alcohol?: 2-3 times a week 2. How many drinks containing alcohol do you have on a typical day when you are drinking?: 1 or 2 3. How often do you have six or more drinks on one occasion?: Never Total Score: 3 JENNIFER-7 AMB Questionnaire JENNIFER-7 Date JENNIFER - 7 assessed: 03/23/24 Feeling nervous, anxious, or on edge: 0 = Not at all Not being able to stop or control worryin = Not at all Worrying too much about different things: 0 = Not at all Trouble relaxin = Not at all Being so restless that it is hard to sit still: 0 = Not at all Becoming easily annoyed or irritable: 0 = Not at all Feeling afraid as if something awful might happen: 0 = Not at all Total JENNIFER-7 score (0-4 normal; 5-9 mild; 10-14 moderate; 15-21 severe): 0 Source: Developed by Drs. Jozef Jewell, Neida Rosen, Darrian Pérez and colleagues, with an educational kay from [employer]. JENNIFER-7 Assessment Billing JENNIFER-7 Assessment Tool: JENNIFER-7 Assessment 81550 Review of Systems Const Details: Denies chills, Denies fatigue, Denies fever(s), Denies headache(s) and Denies weakness HEENT Denies change in vision, Denies dizziness, Denies headache(s), Denies hearing loss, Denies nasal congestion, Denies sinus pain, Denies sinus pressure and Denies sore throat Card Denies chest pain, Denies lightheadedness, Denies dyspnea and Denies other (palpitations) Resp Denies cough, Denies dyspnea and Denies wheezing GI Denies abdominal pain, Denies melena, Denies hematochezia, Denies change in bowel habits, Denies dyspepsia and Denies nausea Denies hematuria and Denies dysuria Musc Denies abnormal gait, Denies myalgias, Denies arthralgias, Denies numbness and Denies tingling Skin/Breast Denies rash, Denies unusual bruising and Denies wounds Neuro Denies abnormal gait, Denies dizziness, Denies headache(s), Denies memory loss, Denies numbness, Denies Sensory deficit (Neuro), Denies tingling and Denies weakness Psych Denies anxiety, Denies depression and Denies memory loss Endo Denies cold intolerance, Denies fatigue, Denies heat intolerance, Denies polydipsia and Denies polyuria Joo/Lymph Denies easy bleeding and Denies easy bruising Aller/Immun Denies wheezing Physical exam (Primary Care) Vital Signs: Last Vital Signs Temp 97.6 F 03/23/24 08:07 Pulse 80 03/23/24 08:07 Resp 16 03/23/24 08:07 BP 128/78 03/23/24 08:07 Pulse Ox 99 03/23/24 08:07 Oxygen Delivery Method Room Air 03/23/24 08:07 BMI result Body Mass Index 30.9 Tobacco/Smoking Status: Tobacco use Status Tobacco use date assessed 03/23/24 03/23/24 08:07 Patient Tobacco Use Status Never used Tobacco 03/23/24 08:04 e-Cigarette/Vaping Use Never Used 03/23/24 08:04 PHQ-9: PHQ-9 Score PHQ-9: Total score 3 03/23/24 08:13 Depression Screening Interpretation: Negative Thrive Assessment: Date of Thrive Assessment Date Thrive assessed 03/23/24 03/23/24 08:13 Currently or been in a relationship where the following occur: No concerns reported Const Other: General: no acute distress, well developed, alert and awake Nutritional Appearance: well nourished Orientation/consciousness: patient oriented x3 HENMT Head: Yes normocephalic and Yes atraumatic Ears: hearing grossly normal bilaterally and TM's normal bilaterally General nose exam: Normal external nose present and Normal nares present Mouth: Normal oral and palatal mucosa present and moist mucous membranes Teeth and gingiva: dentition normal Throat: Yes oropharynx normal Eyes Pupils: Equal, round and reactive pupils present and Pupil accommodation reflex normal EOM: EOMs intact bilaterally Neck Neck: Yes normal visual inspection, Yes no lymphadenopathy and Yes trachea midline Thyroid: Thyroid normal Carotids: no bruits Lymphatic: no lymphadenopathy noted Chest Chest palpation & inspection: normal inspection of the chest Resp Effort & Inspection: normal respiratory effort Auscultation: clear to auscultation bilaterally Cardio Rate: regular rate Rhythm: regular rhythm Heart sounds: S1 normal heart sound present, S2 normal heart sound present, no gallops, no murmurs and no rubs Bruits: no abdominal aortic bruits and no carotid bruits GI Palpation (GI): No Abdominal aortic bruit present, Soft to palpation, nontender, No hepatosplenomegaly present and No Rebound tenderness present Auscultation: normal bowel sounds General: Yes no CVA tenderness Back/Spine/Pelvis Back: no CVA tenderness Cervical Spine: cervical ROM normal and No Cervical spine tenderness Thoracic/Lumbar Spine: thoraco-lumbar ROM normal, No pain with thoraco-lumbar ROM, No thoracic spinal tenderness and No lumbar spinal tenderness Skin General: warm and dry. Normal skin color. Normal skin turgor Lesions: no lesions Rashes: no rashes Trauma: no lacerations or abrasions Wounds: no wounds Nails: normal Neuro General: patient oriented x3, gait normal and CN's II-XI intact bilaterally Cranial nerves: Yes Equal, round and reactive pupils present Cognition (Neuro): normal cognition Gait exam (Neuro): Normal gait present Motor exam (neuro): 5/5 motor strength present throughout Sensory Exam: No Sensory deficit (Neuro) Deep tendon reflexes (DTR's): Right patellar reflex intensity grade: 2+ and Left patellar reflex intensity grade: 2+ Extrem General: Yes normal to inspection, No edema and No calf tenderness Psych Appearance: grossly normal Affect: normal affect Attitude: cooperative Thought process: Normal thought process present Assessment and Plan Assessment & Plan (1) Normal physical examination, routine: Code(s): Z00.00 - Encounter for general adult medical examination without abnormal findings Plan: No significant physical restrictions or limitations noted Continue current treatment regimen Continue follow-up with cardiology as planned Routine exercise encouraged Encouraged to schedule an appointment with his dentist for routine dental care Advised to get lab work done and follow-up for telehealth visit in 2-3 weeks for labs review Return sooner with symptoms or concerns Verbalized understanding and agreed with the treatment plan (2) Colon cancer screening: Code(s): Z12.11 - Encounter for screening for malignant neoplasm of colon Plan: He has never had a colonoscopy Referred to [facility] gastroenterology for colonoscopy (3) Prostate cancer screening: Code(s): Z12.5 - Encounter for screening for malignant neoplasm of prostate Plan: PSA Lab ordered (4) Obesity (BMI 30-39.9): Code(s): E66.9 - Obesity, unspecified Plan: He currently weighs 228 lb, BMI is 38.9 Healthy diet and routine exercise encouraged Referred to [facility] dietitian as requested (5) Immunization, tetanus toxoid: Code(s): Z23 - Encounter for immunization Plan: Tetanus vaccine administered by the nurse today (6) Vaccine counseling: Code(s): Z71.85 - Encounter for immunization safety counseling Plan: He has not been vaccinated for shingles Instructed on importance of vaccinations and encouraged to get vaccinated for shingles. He may request the vaccine from his local pharmacy Verbalized understanding and agreed with the plan (7) Laboratory tests ordered as part of a complete physical exam (CPE): Code(s): Z00.00 - Encounter for general adult medical examination without abnormal findings Plan: Fasting labs ordered as part of a complete physical exam. Advised to fast for at least 10 hours before getting labs drawn. May drink water Verbalized understanding and agreed with treatment plan. Orders: Orders Microalbumin, Random (w Creat) Today Z00.00 - Encounter for general adult medical examination without abnormal findings Lipid Panel Today Z00.00 - Encounter for general adult medical examination without abnormal findings UA CC w/rflx Micro + Cult Today Z00.00 - Encounter for general adult medical examination without abnormal findings PSA, Ultra Sensitive Today Z00.00 - Encounter for general adult medical examination without abnormal findings Referrals Digital Field Service Technician Nutrition Referral E66.9 - Obesity, unspecified Gastroenterology Referral Z12.11 - Encounter for screening for malignant neoplasm of colon Coding Level of Care Code Est Pt Prev Care 40-64y(29908) Diagnoses Normal physical examination, routine Z00.00 Colon cancer screening Z12.11 Prostate cancer screening Z12.5 Obesity (BMI 30-39.9) E66.9 Immunization, tetanus toxoid Z23 Vaccine counseling Z71. Laboratory tests ordered as part of a complete physical exam (CPE) Z00.00 Additional Codes JENNIFER-7 Assessment Billing - JENNIFER-7 Assessment Tool: JENNIFER-7 Assessment 06782 ([id number])
[2024-03-23 08:07] VITALS: BP 128/78; PULSE 80; RESP 16; TEMP 36.4; O2SAT 99; BMI 30.9
== END 2024-03-23 08:45 | disposition home or self-care (01) ==
PROVIDERS: PCP Nurse Practitioner Family; Visit Provider Nurse Practitioner Family
DX: Z00.00 Encounter for general adult medical examination without abnormal findings (principal); E66.9 Obesity, unspecified; Z68.30 Body mass index [BMI] 30.0-30.9, adult; Z23 Encounter for immunization; Z12.11 Encounter for screening for malignant neoplasm of colon; Z12.5 Encounter for screening for malignant neoplasm of prostate; Z71.85 Encounter for immunization safety counseling
CPT/HCPCS: 90471; 90715; 99396

== ENCOUNTER → 2024-04-15 23:59 | Outpatient (BNV) | payer SELFPAY ==
--- NOTE | 2024-04-28 10:16 | MHC.OFFVIS ---
Intake Visit Reasons: Remote ILR check- [employer] Allergies No Known Allergies Allergy (Verified 03/23/24 08:19) [facility] Medical History (Updated 03/23/24 @ 08:39 by Ravindra Parker CNP) History of cardioversion New onset atrial fibrillation Right knee injury Palpitations Bronchitis Supraventricular tachycardia Surgical History History of cardiac radiofrequency ablation H/O right knee surgery Family History (Updated 03/23/24 @ 08:06 by Nancy Lindo MA) Mother High blood pressure Cardiovascular disease Father Cardiovascular disease Social History Household Members: Spouse Housing: House Alcohol intake: current Alcohol intake frequency: a few times a week Comment: Only Fall risk r/t dizziness Patient Tobacco Use Status: Never used Tobacco e-Cigarette/Vaping Use: Never Used Second Hand Smoke Exposure: No service: No Current occupational status: employed 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 [id number] Cardiac Interrogation, subcut cardiac rhythm monitor Procedure code (CPT) selection complete Assessment & Plan Assessment & Plan (1) Implantable loop recorder present: Code(s): Z95.818 - Presence of other cardiac implants and grafts Category: Medical (2) Supraventricular tachycardia: Code(s): I47.1 - Supraventricular tachycardia Category: Medical Plan x Coding Level of Care Code Procedure Only Diagnoses Implantable loop recorder present Z95.818 Supraventricular tachycardia I47.1 CPT Codes Cardiac Device Check - Cardiac Device 16: [id number] Cardiac Interrogation, subcut cardiac rhythm monitor ([id number])
== END ==
PROVIDERS: PCP Nurse Practitioner Family; Visit Provider Internal Medicine
DX: I47.10 Supraventricular tachycardia, unspecified (principal); Z95.818 Presence of other cardiac implants and grafts
CPT/HCPCS: 93298

== ENCOUNTER → 2024-05-15 23:59 | Outpatient (BNV) | payer OTHER, SELFPAY ==
--- NOTE | 2024-05-30 10:34 | A.OFFVIS_ITS ---
Intake Visit Reasons: Remote ILR check- [employer] Allergies No Known Allergies Allergy (Verified 03/23/24 08:19) [facility] Medical History (Updated 03/23/24 @ 08:39 by Ravindra Parker CNP) History of cardioversion New onset atrial fibrillation Right knee injury Palpitations Bronchitis Supraventricular tachycardia Surgical History History of cardiac radiofrequency ablation H/O right knee surgery Family History (Updated 03/23/24 @ 08:06 by Nancy Lindo MA) Mother High blood pressure Cardiovascular disease Father Cardiovascular disease Social History Household Members: Spouse Housing: House Alcohol intake: current Alcohol intake frequency: a few times a week Comment: Only Fall risk r/t dizziness Patient Tobacco Use Status: Never used Tobacco e-Cigarette/Vaping Use: Never Used Second Hand Smoke Exposure: No service: No Current occupational status: employed 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 [id number] Cardiac Interrogation, subcut cardiac rhythm monitor Procedure code (CPT) selection complete Assessment & Plan Assessment & Plan (1) Implantable loop recorder present: Code(s): Z95.818 - Presence of other cardiac implants and grafts Category: Medical (2) Atrial fibrillation with RVR: Code(s): I48.91 - Unspecified atrial fibrillation Category: Medical Plan x Coding Level of Care Code Procedure Only Diagnoses Implantable loop recorder present Z95.818 Atrial fibrillation with RVR I48.91 CPT Codes Cardiac Device Check - Cardiac Device 16: 22453-Hkbnfn Cardiac Interrogation, subcut cardiac rhythm monitor ([id number])
== END ==
PROVIDERS: PCP Nurse Practitioner Family; Visit Provider Internal Medicine
DX: I48.91 Unspecified atrial fibrillation (principal); Z95.818 Presence of other cardiac implants and grafts
CPT/HCPCS: 93298

== ENCOUNTER → 2024-06-14 23:59 | Outpatient (BNV) | payer OTHER, SELFPAY ==
--- NOTE | 2024-06-20 19:10 | MHC.OFFVIS ---
Intake Visit Reasons: Remote ILR check- [employer] Allergies No Known Allergies Allergy (Verified 03/23/24 08:19) [facility] Medical History (Updated 03/23/24 @ 08:39 by Ravindra Parker CNP) History of cardioversion New onset atrial fibrillation Right knee injury Palpitations Bronchitis Supraventricular tachycardia Surgical History History of cardiac radiofrequency ablation H/O right knee surgery Family History (Updated 03/23/24 @ 08:06 by Nancy Lindo MA) Mother High blood pressure Cardiovascular disease Father Cardiovascular disease Social History Household Members: Spouse Housing: House Alcohol intake: current Alcohol intake frequency: a few times a week Comment: Only Fall risk r/t dizziness Patient Tobacco Use Status: Never used Tobacco e-Cigarette/Vaping Use: Never Used Second Hand Smoke Exposure: No service: No Current occupational status: employed 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 [id number]-Ovnffl Cardiac Interrogation, subcut cardiac rhythm monitor Procedure code (CPT) selection complete Assessment & Plan Assessment & Plan (1) Implantable loop recorder present: Code(s): Z95.818 - Presence of other cardiac implants and grafts Category: Medical (2) Supraventricular tachycardia: Code(s): I47.1 - Supraventricular tachycardia Category: Medical Plan x Coding Level of Care Code Procedure Only Diagnoses Implantable loop recorder present Z95.818 Supraventricular tachycardia I47.1 CPT Codes Cardiac Device Check - Cardiac Device 16: [id number] Cardiac Interrogation, subcut cardiac rhythm monitor ([id number])
== END ==
PROVIDERS: PCP Nurse Practitioner Family; Visit Provider Internal Medicine
DX: I47.10 Supraventricular tachycardia, unspecified (principal); Z95.818 Presence of other cardiac implants and grafts
CPT/HCPCS: 93298

== ENCOUNTER → 2024-09-12 23:59 | Outpatient (BNV) | payer OTHER, SELFPAY ==
--- NOTE | 2024-09-14 19:13 | A.OFFVIS_ITS ---
Intake Visit Reasons: Remote ILR check- [employer] Allergies No Known Allergies Allergy (Verified 03/23/24 08:19) [facility] Medical History (Updated 03/23/24 @ 08:39 by Ravindra Parker CNP) History of cardioversion New onset atrial fibrillation Right knee injury Palpitations Bronchitis Supraventricular tachycardia Surgical History History of cardiac radiofrequency ablation H/O right knee surgery Family History (Updated 03/23/24 @ 08:06 by Nancy Lindo MA) Mother High blood pressure Cardiovascular disease Father Cardiovascular disease Social History Household Members: Spouse Housing: House Alcohol intake: current Alcohol intake frequency: a few times a week Comment: Only Fall risk r/t dizziness Patient Tobacco Use Status: Never used Tobacco e-Cigarette/Vaping Use: Never Used Second Hand Smoke Exposure: No service: No Current occupational status: employed 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 PVC 0.1%. 34152-Drknzd Cardiac Interrogation, subcut cardiac rhythm monitor Procedure code (CPT) selection complete Assessment & Plan Assessment & Plan (1) Implantable loop recorder present: Code(s): Z95.818 - Presence of other cardiac implants and grafts Category: Medical (2) Supraventricular tachycardia: Code(s): I47.1 - Supraventricular tachycardia Category: Medical Plan x Coding Level of Care Code Procedure Only Diagnoses Implantable loop recorder present Z95.818 Supraventricular tachycardia I47.1 CPT Codes Cardiac Device Check - Cardiac Device 16: [id number]-Wcqboe Cardiac Interrogation, subcut cardiac rhythm monitor ([id number])
== END ==
PROVIDERS: PCP Nurse Practitioner Family; Visit Provider Internal Medicine
DX: I47.10 Supraventricular tachycardia, unspecified (principal); Z95.818 Presence of other cardiac implants and grafts
CPT/HCPCS: 93298

== ENCOUNTER → 2024-10-12 23:59 | Outpatient (BNV) | payer OTHER, SELFPAY ==
--- NOTE | 2024-10-20 21:16 | A.OFFVIS_ITS ---
Intake Visit Reasons: [employer]mote ILR check- [employer] Allergies No Known Allergies Allergy (Verified 03/23/24 08:19) [facility] Medical History (Updated 03/23/24 @ 08:39 by Ravindra Parker CNP) History of cardioversion New onset atrial fibrillation Right knee injury Palpitations Bronchitis Supraventricular tachycardia Surgical History History of cardiac radiofrequency ablation H/O right knee surgery Family History (Updated 03/23/24 @ 08:06 by Nancy Lindo MA) Mother High blood pressure Cardiovascular disease Father Cardiovascular disease Social History Household Members: Spouse Housing: House Alcohol intake: current Alcohol intake frequency: a few times a week Comment: Only Fall risk r/t dizziness Patient Tobacco Use Status: Never used Tobacco e-Cigarette/Vaping Use: Never Used Second Hand Smoke Exposure: No service: No Current occupational status: employed 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 PVCs 0.1% [id number]-Hesave Cardiac Interrogation, subcut cardiac rhythm monitor Procedure code (CPT) selection complete Assessment & Plan Assessment & Plan (1) Implantable loop recorder present: Code(s): Z95.818 - Presence of other cardiac implants and grafts Category: Medical (2) Supraventricular tachycardia: Code(s): I47.1 - Supraventricular tachycardia Category: Medical Plan x Coding Level of Care Code Procedure Only Diagnoses Implantable loop recorder present Z95.818 Supraventricular tachycardia I47.1 CPT Codes Cardiac Device Check - Cardiac Device 16: [id number]-Eitlkh Cardiac Interrogation, subcut cardiac rhythm monitor ([id number])
== END ==
PROVIDERS: PCP Nurse Practitioner Family; Visit Provider Internal Medicine
DX: I47.10 Supraventricular tachycardia, unspecified (principal); Z95.818 Presence of other cardiac implants and grafts
CPT/HCPCS: 93298

== ENCOUNTER → 2024-11-11 23:59 | Outpatient (BNV) | payer OTHER, SELFPAY ==
--- NOTE | 2024-11-16 20:43 | MHC.OFFVIS ---
Intake Visit Reasons: REmote ILR check- [employer] Allergies No Known Allergies Allergy (Verified 03/23/24 08:19) [facility] Medical History (Updated 03/23/24 @ 08:39 by Ravindra Parker CNP) History of cardioversion New onset atrial fibrillation Right knee injury Palpitations Bronchitis Supraventricular tachycardia Surgical History History of cardiac radiofrequency ablation H/O right knee surgery Family History (Updated 03/23/24 @ 08:06 by Nancy Lindo MA) Mother High blood pressure Cardiovascular disease Father Cardiovascular disease Social History Household Members: Spouse Housing: House Alcohol intake: current Alcohol intake frequency: a few times a week Comment: Only Fall risk r/t dizziness Patient Tobacco Use Status: Never used Tobacco e-Cigarette/Vaping Use: Never Used Second Hand Smoke Exposure: No service: No Current occupational status: employed 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 PVC 0.1%. 62302-Huklde Cardiac Interrogation, subcut cardiac rhythm monitor Procedure code (CPT) selection complete Assessment & Plan Assessment & Plan (1) Implantable loop recorder present: Code(s): Z95.818 - Presence of other cardiac implants and grafts Category: Medical (2) Atrial fibrillation with RVR: Code(s): I48.91 - Unspecified atrial fibrillation Category: Medical (3) Supraventricular tachycardia: Code(s): I47.1 - Supraventricular tachycardia Category: Medical Plan x Coding Level of Care Code Procedure Only Diagnoses Implantable loop recorder present Z95.818 Atrial fibrillation with RVR I48.91 Supraventricular tachycardia I47.1 CPT Codes Cardiac Device Check - Cardiac Device 16: 03172-Gskdgl Cardiac Interrogation, subcut cardiac rhythm monitor ([id number])
== END ==
PROVIDERS: PCP Nurse Practitioner Family; Visit Provider Internal Medicine
DX: I48.91 Unspecified atrial fibrillation (principal); I47.10 Supraventricular tachycardia, unspecified; Z95.818 Presence of other cardiac implants and grafts
CPT/HCPCS: 93298

== ENCOUNTER → 2024-12-11 23:59 | Outpatient (BNV) | payer OTHER, SELFPAY ==
--- NOTE | 2024-12-19 09:17 | MHC.OFFVIS ---
Intake Visit Reasons: Remote ILR check- [employer] Allergies No Known Allergies Allergy (Verified 03/23/24 08:19) [facility] Medical History (Updated 03/23/24 @ 08:39 by Ravindra Parker CNP) History of cardioversion New onset atrial fibrillation Right knee injury Palpitations Bronchitis Supraventricular tachycardia Surgical History History of cardiac radiofrequency ablation H/O right knee surgery Family History (Updated 03/23/24 @ 08:06 by Nancy Lindo MA) Mother High blood pressure Cardiovascular disease Father Cardiovascular disease Social History Household Members: Spouse Housing: House Alcohol intake: current Alcohol intake frequency: a few times a week Comment: Only Fall risk r/t dizziness Patient Tobacco Use Status: Never used Tobacco e-Cigarette/Vaping Use: Never Used Second Hand Smoke Exposure: No service: No Current occupational status: employed 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 PVC 0.1%. 42783-Akcwez Cardiac Interrogation, subcut cardiac rhythm monitor Procedure code (CPT) selection complete Assessment & Plan Assessment & Plan (1) Implantable loop recorder present: Code(s): Z95.818 - Presence of other cardiac implants and grafts Category: Medical (2) Atrial fibrillation with RVR: Code(s): I48.91 - Unspecified atrial fibrillation Category: Medical Plan x Coding Level of Care Code Procedure Only Diagnoses Implantable loop recorder present Z95.818 Atrial fibrillation with RVR I48.91 CPT Codes Cardiac Device Check - Cardiac Device 16: 35710-Aeybgu Cardiac Interrogation, subcut cardiac rhythm monitor ([id number])
== END ==
PROVIDERS: PCP Nurse Practitioner Family; Visit Provider Internal Medicine
DX: I48.91 Unspecified atrial fibrillation (principal); Z95.818 Presence of other cardiac implants and grafts
CPT/HCPCS: 93298

== ENCOUNTER → 2025-01-10 23:59 | Outpatient (BNV) | payer OTHER, SELFPAY ==
--- NOTE | 2025-01-17 12:35 | A.OFFVIS_ITS ---
Intake Visit Reasons: Remote ILR check- [employer] Allergies No Known Allergies Allergy (Verified 03/23/24 08:19) [facility] Medical History (Updated 03/23/24 @ 08:39 by Ravindra Parker CNP) History of cardioversion New onset atrial fibrillation Right knee injury Palpitations Bronchitis Supraventricular tachycardia Surgical History History of cardiac radiofrequency ablation H/O right knee surgery Family History (Updated 03/23/24 @ 08:06 by Nancy Lindo MA) Mother High blood pressure Cardiovascular disease Father Cardiovascular disease Social History Household Members: Spouse Housing: House Alcohol intake: current Alcohol intake frequency: a few times a week Comment: Only Fall risk r/t dizziness Patient Tobacco Use Status: Never used Tobacco e-Cigarette/Vaping Use: Never Used Second Hand Smoke Exposure: No service: No Current occupational status: employed 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 PVC burden 0.1%. 47935-Vqigdk Cardiac Interrogation, subcut cardiac rhythm monitor Procedure code (CPT) selection complete Assessment & Plan Assessment & Plan (1) Implantable loop recorder present: Code(s): Z95.818 - Presence of other cardiac implants and grafts Category: Medical (2) Supraventricular tachycardia: Code(s): I47.1 - Supraventricular tachycardia Category: Medical (3) Palpitations: Code(s): R00.2 - Palpitations Category: Medical Plan x Coding Level of Care Code Procedure Only Diagnoses Implantable loop recorder present Z95.818 Supraventricular tachycardia I47.1 Palpitations R00.2 CPT Codes Cardiac Device Check - Cardiac Device 16: 53741-Bsxwvx Cardiac Interrogation, subcut cardiac rhythm monitor ([id number])
== END ==
PROVIDERS: PCP Nurse Practitioner Family; Visit Provider Internal Medicine
DX: I47.10 Supraventricular tachycardia, unspecified (principal); Z95.818 Presence of other cardiac implants and grafts; R00.2 Palpitations
CPT/HCPCS: 93298

== ENCOUNTER → 2025-02-09 23:59 | Outpatient (BNV) | payer OTHER, SELFPAY ==
--- NOTE | 2025-02-14 13:29 | MHC.OFFVIS ---
Intake Visit Reasons: Remote ILR check- [employer] Allergies No Known Allergies Allergy (Verified 03/23/24 08:19) [facility] Medical History (Updated 03/23/24 @ 08:39 by Ravindra Parker CNP) History of cardioversion New onset atrial fibrillation Right knee injury Palpitations Bronchitis Supraventricular tachycardia Surgical History History of cardiac radiofrequency ablation H/O right knee surgery Family History (Updated 03/23/24 @ 08:06 by Nancy Lindo MA) Mother High blood pressure Cardiovascular disease Father Cardiovascular disease Social History Household Members: Spouse Housing: House Alcohol intake: current Alcohol intake frequency: a few times a week Comment: Only Fall risk r/t dizziness Patient Tobacco Use Status: Never used Tobacco e-Cigarette/Vaping Use: Never Used Second Hand Smoke Exposure: No service: No Current occupational status: employed 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 60748-Vvfgwu Cardiac Interrogation, subcut cardiac rhythm monitor Procedure code (CPT) selection complete Assessment & Plan Assessment & Plan (1) Implantable loop recorder present: Code(s): Z95.818 - Presence of other cardiac implants and grafts Category: Medical (2) Atrial fibrillation with RVR: Code(s): I48.91 - Unspecified atrial fibrillation Category: Medical Plan x Coding Level of Care Code Procedure Only Diagnoses Implantable loop recorder present Z95.818 Atrial fibrillation with RVR I48.91 CPT Codes Cardiac Device Check - Cardiac Device 16: 61219-Gdvldx Cardiac Interrogation, subcut cardiac rhythm monitor ([id number])
== END ==
PROVIDERS: PCP Nurse Practitioner Family; Visit Provider Internal Medicine
DX: I48.91 Unspecified atrial fibrillation (principal); Z95.818 Presence of other cardiac implants and grafts
CPT/HCPCS: 93298

== ENCOUNTER → 2025-03-11 23:59 | Outpatient (BNV) | payer OTHER, SELFPAY ==
--- NOTE | 2025-03-20 13:37 | MHC.OFFVIS ---
Intake Visit Reasons: REmote ILR check- [employer] Allergies No Known Allergies Allergy (Verified 03/23/24 08:19) [facility] Medical History (Updated 03/23/24 @ 08:39 by Ravindra Parker CNP) History of cardioversion New onset atrial fibrillation Right knee injury Palpitations Bronchitis Supraventricular tachycardia Surgical History History of cardiac radiofrequency ablation H/O right knee surgery Family History (Updated 03/23/24 @ 08:06 by Nancy Lindo MA) Mother High blood pressure Cardiovascular disease Father Cardiovascular disease Social History Household Members: Spouse Housing: House Alcohol intake: current Alcohol intake frequency: a few times a week Comment: Only Fall risk r/t dizziness Patient Tobacco Use Status: Never used Tobacco e-Cigarette/Vaping Use: Never Used Second Hand Smoke Exposure: No service: No Current occupational status: employed 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 PVCs 0.1%. 52454-Jmhkfn Cardiac Interrogation, subcut cardiac rhythm monitor Procedure code (CPT) selection complete Assessment & Plan Assessment & Plan (1) Implantable loop recorder present: Code(s): Z95.818 - Presence of other cardiac implants and grafts Category: Medical (2) Atrial fibrillation with RVR: Code(s): I48.91 - Unspecified atrial fibrillation Category: Medical (3) Supraventricular tachycardia: Code(s): I47.1 - Supraventricular tachycardia Category: Medical Plan x Coding Level of Care Code Procedure Only Diagnoses Implantable loop recorder present Z95.818 Atrial fibrillation with RVR I48.91 Supraventricular tachycardia I47.1 CPT Codes Cardiac Device Check - Cardiac Device 16: 32162-Ebxqih Cardiac Interrogation, subcut cardiac rhythm monitor ([id number])
== END ==
PROVIDERS: PCP Nurse Practitioner Family; Visit Provider Internal Medicine
DX: I48.91 Unspecified atrial fibrillation (principal); Z95.818 Presence of other cardiac implants and grafts; I47.10 Supraventricular tachycardia, unspecified
CPT/HCPCS: 93298

== ENCOUNTER → 2025-04-10 23:59 | Outpatient (BNV) | payer OTHER, SELFPAY ==
--- NOTE | 2025-04-14 08:44 | MHC.OFFVIS ---
Intake Visit Reasons: REmote ILR check- [employer] Allergies No Known Allergies Allergy (Verified 03/23/24 08:19) [facility] Medical History (Updated 03/23/24 @ 08:39 by Ravindra Parker CNP) History of cardioversion New onset atrial fibrillation Right knee injury Palpitations Bronchitis Supraventricular tachycardia Surgical History History of cardiac radiofrequency ablation H/O right knee surgery Family History (Updated 03/23/24 @ 08:06 by Nancy Lindo MA) Mother High blood pressure Cardiovascular disease Father Cardiovascular disease Social History Household Members: Spouse Housing: House Alcohol intake: current Alcohol intake frequency: a few times a week Comment: Only Fall risk r/t dizziness Patient Tobacco Use Status: Never used Tobacco e-Cigarette/Vaping Use: Never Used Second Hand Smoke Exposure: No service: No Current occupational status: employed 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 PVCs 0.2%. 65664-Cglylo Cardiac Interrogation, subcut cardiac rhythm monitor Procedure code (CPT) selection complete Assessment & Plan Assessment & Plan (1) Implantable loop recorder present: Code(s): Z95.818 - Presence of other cardiac implants and grafts Category: Medical (2) Supraventricular tachycardia: Code(s): I47.1 - Supraventricular tachycardia Category: Medical (3) Palpitations: Code(s): R00.2 - Palpitations Category: Medical Plan x Coding Level of Care Code Procedure Only Diagnoses Implantable loop recorder present Z95.818 Supraventricular tachycardia I47.1 Palpitations R00.2 CPT Codes Cardiac Device Check - Cardiac Device 16: 05163-Nzfyrj Cardiac Interrogation, subcut cardiac rhythm monitor ([id number])
== END ==
PROVIDERS: PCP Nurse Practitioner Family; Visit Provider Internal Medicine
DX: I47.10 Supraventricular tachycardia, unspecified (principal); Z95.818 Presence of other cardiac implants and grafts; R00.2 Palpitations
CPT/HCPCS: 93298

== ENCOUNTER → 2025-05-10 23:59 | Outpatient (BNV) | payer OTHER, SELFPAY ==
--- NOTE | 2025-05-16 19:17 | MHC.OFFVIS ---
Intake Visit Reasons: Remote ILR check- [employer] Allergies No Known Allergies Allergy (Verified 03/23/24 08:19) [facility] Medical History (Updated 03/23/24 @ 08:39 by Ravindra Parker CNP) History of cardioversion New onset atrial fibrillation Right knee injury Palpitations Bronchitis Supraventricular tachycardia Surgical History History of cardiac radiofrequency ablation H/O right knee surgery Family History (Updated 03/23/24 @ 08:06 by Nancy Lindo MA) Mother High blood pressure Cardiovascular disease Father Cardiovascular disease Social History Household Members: Spouse Housing: House Alcohol intake: current Alcohol intake frequency: a few times a week Comment: Only Fall risk r/t dizziness Patient Tobacco Use Status: Never used Tobacco e-Cigarette/Vaping Use: Never Used Second Hand Smoke Exposure: No service: No 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 51467-Nsxmbm Cardiac Interrogation, subcut cardiac rhythm monitor Procedure code (CPT) selection complete Assessment & Plan Assessment & Plan (1) Implantable loop recorder present: Code(s): Z95.818 - Presence of other cardiac implants and grafts Category: Medical (2) Atrial fibrillation with RVR: Code(s): I48.91 - Unspecified atrial fibrillation Category: Medical (3) Supraventricular tachycardia: Code(s): I47.1 - Supraventricular tachycardia Category: Medical Plan x Coding Level of Care Code Procedure Only Diagnoses Implantable loop recorder present Z95.818 Atrial fibrillation with RVR I48.91 Supraventricular tachycardia I47.1 CPT Codes Cardiac Device Check - Cardiac Device 16: 66304-Vffrkt Cardiac Interrogation, subcut cardiac rhythm monitor ([id number])
== END ==
PROVIDERS: PCP Nurse Practitioner Family; Visit Provider Internal Medicine
DX: I48.91 Unspecified atrial fibrillation (principal); Z95.818 Presence of other cardiac implants and grafts; I47.10 Supraventricular tachycardia, unspecified
CPT/HCPCS: 93298

== ENCOUNTER → 2025-06-21 09:23 | Outpatient (BNV) | payer OTHER, SELFPAY | PROVIDERS: PCP Nurse Practitioner Family; Visit Provider Internal Medicine | DX: I47.10 Supraventricular tachycardia, unspecified (principal); I48.91 Unspecified atrial fibrillation; Z95.818 Presence of other cardiac implants and grafts | CPT/HCPCS: 93298 ==